=== PATIENT | female | born 1995 | race Caucasian/White ===

== ENCOUNTER 2019-02-12 11:49 | Outpatient (CLI) | payer OTHER, SELFPAY ==
--- NOTE | 2019-02-12 11:00 | DI.US_ITS ---
SYMPTOMS/DIAGNOSIS: 4-5 MM FIRM BUT MOVEABLE LUMP 9:00 O'CLOCK RT BREAST, N63.0, NONPAINFUL RIGHT BREAST ULTRASOUND: A well circumscribed 3.2 x 3.0 x 3.6 mm calcification is identified just below the dermis at 9:00 o'clock just lateral to the nipple. No mass is apparent. There is nothing to suggest a malignancy. Follow up surveillance of this patient with risk adjusted and age adjusted mammography is recommended.
== END 2019-02-12 12:09 ==
DX: N63.12 Unspecified lump in the right breast, upper inner quadrant (principal)
CPT/HCPCS: 76642

== ENCOUNTER 2021-01-05 12:10 | Outpatient (REF) | payer BC, SELFPAY ==
--- NOTE | 2021-01-05 13:30 | PAPFT_PTH ---
PATIENT: Nayeli Sam LOC: [facility] U#:[id number] AGE/SX: 25/F ROOM: RE01/05/[address]: Luiza Cole APRN : 1995 BED: DIS: 01/05/2021 SPEC #: [id number] RECD: 01/06/21 12:53 STATUS: CYNDEE REYasmin #: [id number] JACOB: 01/05/21 13:[address]: Luiza Cole DEPT: [facility] Cytology RECD BY: Priya Mayo Tissues: 1 - CX/ENDOCX FOR PAP SMEARS Procedures: PAP THIN PREP/UVM Screening Comments: [id number]
== END 2021-01-05 12:11 | disposition home or self-care (01) ==
LOC: LBN 12:10
DX: Z12.4 Encounter for screening for malignant neoplasm of cervix (principal)
CPT/HCPCS: 88142

== ENCOUNTER 2021-01-12 02:58 | Outpatient (CLI) | payer BC, SELFPAY ==
[2021-01-12 12:43] LABS: ALT 19 U/L (14-59); AST 20 U/L (15-37); Albumin 4.1 g/dL (3.4-5.0); Alkaline Phosphatase 46 U/L (46-116); BUN 17 mg/dL (7-18); Bilirubin, Total 0.4 mg/dL (0.2-1.0); CREATININE 0.8 mg/dL (0.55-1.02); Calcium 9.3 mg/dL (8.5-10.1); Calculated LDL 95 mg/dL (<100); Chloride 105 mmol/L (98-107); Cholesterol 202 mg/dL (<200); Glucose 84 mg/dL (74-106); HDL Cholesterol 91 mg/dL (40-60); Potassium 4.7 mmol/L (3.5-5.1); Sodium 142 mmol/L (136-145); Total Protein 7.4 g/dL (6.4-8.2); Triglyceride 82 mg/dL (<150)
== END 2021-01-12 02:59 | disposition home or self-care (01) ==
DX: Z00.00 Encounter for general adult medical examination without abnormal findings (principal); Z13.220 Encounter for screening for lipoid disorders
CPT/HCPCS: 36415; 80053; 80061

== ENCOUNTER 2022-01-22 01:10 | Outpatient (CLI) | payer MEDICAID, SELFPAY ==
[2022-01-22 10:49] LABS: Kit/Specimen SENT
[2022-01-22 11:05] LABS: *AMPHETAMINES SCREEN URINE Negative (Negative); *BARBITURATES SCREEN URINE Negative (Negative); *BENZODIAZEPINES SCREEN URINE Negative (Negative); Cannabinoids THC Negative (Negative); Cocaine Screen,Urine Negative (Negative); METHADONE URINE SCREEN Negative (Negative); OPIATES URINE SCREEN Negative (Negative)
[2022-01-22 11:06] LABS: Tricyclic Antidepressants Negative (Negative)
[2022-01-22 11:11] LABS: Abs Immature Grans 0.03 10^3/uL (0.0-0.06); Absolute Basophil Count 0.02 10^3/uL (0.0-0.2); Absolute Eosinophil Count 0.06 10^3/uL (0.0-0.7); Absolute Lymphocyte Count 1.51 10^3/uL (1.2-3.4); Absolute Monocyte Count 0.59 10^3/uL (0.1-0.8); Absolute Neutrophil Count 5.56 10^3/uL (1.2-6.7); Basophils % 0.3; Eosinophils % 0.8; HCT 36.2 % (36.0-46.0); HGB 12.3 g/dL (11.2-15.7); Immature Grans % 0.4; Lymphocytes % 19.4; MCH 31.4 pg (27.0-33.0); MCV 92 fL (80-95); Monocytes % 7.6; Neutrophils % 71.5; RBC 3.92 10^6/uL (3.93-5.22); RDW 12.5 % (11.7-14.6); RDW-SD 42.7 fL; WBC 7.77 10^3/uL (4.4-10.8)
[2022-01-23 09:23] LABS: HIV-1/2 Ag & Ab Screen Negative (Negative)
[2022-01-24 15:23] LABS: Syphilis IgG w/Reflex Nonreactive (Nonreactive)
[2022-01-25 10:13] LABS: Rubella IgG Ab (UVM) Positive (See Note); Varicella IgG Antibody Positive (See Note)
[2022-01-25 10:14] LABS: Hepatitis B Surface Ag Negative (Negative)
[2022-01-25 10:52] LABS: Hepatitis C Ab w Rflx HCV PCR Negative (Negative)
[2022-02-10 20:27] LABS: Specimen WB Whole Blood
== END 2022-01-22 01:11 | disposition home or self-care (01) ==
LOC: LBO 01:10
PROVIDERS: Visit Provider Advanced Practice Midwife
DX: O99.611 Diseases of the digestive system complicating pregnancy, first trimester (principal); K58.1 Irritable bowel syndrome with constipation; O99.341 Other mental disorders complicating pregnancy, first trimester; F90.2 Attention-deficit hyperactivity disorder, combined type; F32.89 Other specified depressive episodes; Z86.16 Personal history of COVID-19; Z36.89 Encounter for other specified antenatal screening; Z3A.12 12 weeks gestation of pregnancy
CPT/HCPCS: 80307; 86787; 86803; 86850; 86900; 86901; 87340; 87389; 81220; 84443; 85025; 86762; 86780; 87086

== ENCOUNTER 2022-02-24 18:32 | Outpatient (REF) | payer MEDICAID, SELFPAY ==
[2022-02-26 15:14] LABS: GC Result Negative (Negative)
[2022-02-26 17:57] LABS: Chlamydia Result Positive (Negative)
== END 2022-02-24 18:33 | disposition home or self-care (01) ==
LOC: LBN 18:32
PROVIDERS: Visit Provider Advanced Practice Midwife
DX: Z34.92 Encounter for supervision of normal pregnancy, unspecified, second trimester (principal)
CPT/HCPCS: 87491; 87591

== ENCOUNTER 2022-03-24 23:52 | Outpatient (REF) | payer MEDICAID, SELFPAY ==
[2022-03-26 16:04] LABS: Chlamydia Result Negative (Negative); GC Result Negative (Negative)
== END 2022-03-24 23:53 | disposition home or self-care (01) ==
LOC: LBN 23:52
PROVIDERS: Visit Provider Advanced Practice Midwife
DX: O98.812 Other maternal infectious and parasitic diseases complicating pregnancy, second trimester (principal); A74.9 Chlamydial infection, unspecified; Z3A.20 20 weeks gestation of pregnancy
CPT/HCPCS: 87491; 87591

== ENCOUNTER 2022-05-12 03:06 | Outpatient (CLI) | payer MEDICAID, SELFPAY ==
[2022-05-12 10:53] LABS: HCT 35.3 % (36.0-46.0); HGB 11.8 g/dL (11.2-15.7); MCH 31.6 pg (27.0-33.0); MCHC 33.4 % (32.0-36.0); MCV 95 fL (80-95); RBC 3.73 10^6/uL (3.93-5.22); RDW 13.2 % (11.7-14.6); RDW-SD 45.3 fL
[2022-05-12 11:00] LABS: Glucose,1 Hr (Glucola) 98 mg/dL (80-140)
== END 2022-05-12 03:07 | disposition home or self-care (01) ==
LOC: LBO 03:06
PROVIDERS: PCP Nurse Practitioner Family; Visit Provider Advanced Practice Midwife
DX: Z34.93 Encounter for supervision of normal pregnancy, unspecified, third trimester (principal)
CPT/HCPCS: 36415; 82950; 85027

== ENCOUNTER 2022-06-16 01:24 | Outpatient (CLI) | payer MEDICAID, SELFPAY ==
--- NOTE | 2022-06-16 06:45 | DI.US_ITS ---
Exam(s) US OB MICHAEL WEIGHT EXAM: US OB MICHAEL WEIGHT CLINICAL HISTORY: covid in first trimester, marginal cord insertion,U07.1,O43.199. TECHNIQUE: Transabdominal obstetrical ultrasound was performed. COMPARISON: US US breast RT limited from 02/12/2019 FINDINGS: There is a single viable intrauterine gestation with cardiac activity identified-125 bpm The fetus is presently in cephalic position . Amniotic fluid: There is a low normal amount of amniotic fluid with an MICHAEL of 9.04cm. Placental location: The placenta is fundal left, grade 1,with no evidence of placenta previa. Dating parameters place this at approximately 32 weeks and 4 days gestational age, implying VENECIA of August 07, 2022. BPD measures 32 weeks and 3 days HC measures 32 weeks and 6 days AC measures 32 weeks and 5 days FL measures 32 weeks and 2 days Estimated weight is 1999 gm-4 pound 7 ounces Fetus is at the 31st percentile on the Hadlock scale. IMPRESSION:: Viable 3rd trimester gestation, as described above. DATA REPOSITORY:
== END 2022-06-16 01:44 ==
LOC: DI 01:24
PROVIDERS: PCP Nurse Practitioner Family; Visit Provider Advanced Practice Midwife
DX: O43.193 Other malformation of placenta, third trimester (principal); Z86.16 Personal history of COVID-19
CPT/HCPCS: 76816

== ENCOUNTER 2022-07-09 12:49 | Outpatient (REF) | payer MEDICAID, SELFPAY ==
[2022-07-09 15:30] LABS: Tricyclic Antidepressants Negative (Negative)
[2022-07-09 15:31] LABS: *AMPHETAMINES SCREEN URINE Negative (Negative); *BARBITURATES SCREEN URINE Negative (Negative); *BENZODIAZEPINES SCREEN URINE Negative (Negative); Cannabinoids THC Negative (Negative); Cocaine Screen,Urine Negative (Negative); METHADONE URINE SCREEN Negative (Negative); OPIATES URINE SCREEN Negative (Negative)
== END 2022-07-09 12:50 | disposition home or self-care (01) ==
LOC: LBN 12:49
PROVIDERS: PCP Nurse Practitioner Family; Visit Provider Advanced Practice Midwife
DX: Z34.93 Encounter for supervision of normal pregnancy, unspecified, third trimester (principal); Z36.85 Encounter for antenatal screening for Streptococcus B; Z3A.36 36 weeks gestation of pregnancy
CPT/HCPCS: 80307; 87081

== ENCOUNTER 2022-08-12 13:30 | Outpatient (CLI) | payer MEDICAID, SELFPAY ==
[2022-08-12 16:12] VITALS: BP 125/78; PULSE 80; TEMP 36.6
--- NOTE | 2022-08-12 17:39 | W.OBNST ---
Date of service: 08/12/22 Time of Service: 17:39 NST Evaluation Reason for NST Reasons for Nonstress Test: POSTDATES Gestational Age Gestational Age in Weeks and Days: 38 Weeks and 1Days Test and Monitor Explained Test/Monitor Explained: Test Explained, Monitor Explained and Patient Verbalized Understanding Vital Signs Blood Pressure: 125/78 Pulse: 80 Temperature: 97.9 F Urine Results Urine Protein: Negative Urine Ketones: Negative Urine Glucose: Negative Urine Blood: Negative NST Information Date on Monitor: 08/12/22 Time on Monitor: 13:46 Date off Monitor: 08/12/22 Time off Monitor: 15:20 Total Time on Monitor: 94 NST Interventions: PO Hydration Contraction Frequency: occasional NST Evaluation Patient States Movement: Present FHR Baseline: 120 Variability: Moderate 6-25 bpm Accelerations: 15x15 Decelerations: None NST Results: Reactive Note MICHAEL Indication: Other (postdates) Largest Vertical Pocket: 4 Total MICHAEL: 10.1 Other Pertinent Findings: Presentation (cephalic presentation) Coding for MICHAEL w/NST: Completed Exam NST Note Note: Pt declines IOL for postdates, will return 08/16 for repeat NST NST Reviewed and Verified by: Marbella Musa
[2022-08-12 17:40] VITALS: BP 125/78; PULSE 80; TEMP 36.6
== END 2022-08-12 15:25 | disposition home or self-care (01) ==
LOC: BCD 13:31 → OBS 13:54
PROVIDERS: PCP Nurse Practitioner Family; Visit Provider Advanced Practice Midwife
DX: O48.0 Post-term pregnancy (principal)
CPT/HCPCS: 59025

== ENCOUNTER 2022-08-16 07:17 | Outpatient (CLI) | payer MEDICAID, SELFPAY ==
[2022-08-16 10:15] VITALS: BP 109/66; PULSE 74
[2022-08-16 10:37] VITALS: BP 109/66; PULSE 74; TEMP 36.8
--- NOTE | 2022-08-16 12:42 | W.OBNST ---
Date of service: 08/16/22 Time of Service: 12:43 NST Evaluation Reason for NST Reasons for Nonstress Test: POSTDATES Gestational Age Gestational Age in Weeks and Days: 41 Weeks and 4Days Test and Monitor Explained Test/Monitor Explained: Test Explained, Monitor Explained and Patient Verbalized Understanding Vital Signs Blood Pressure: 109/66 Pulse: 74 Temperature: 98.2 F NST Information Date on Monitor: 08/16/22 Time on Monitor: 09:35 Date off Monitor: 08/16/22 NST Interventions: PO Hydration NST Evaluation Patient States Movement: Present FHR Baseline: 125 Variability: Moderate 6-25 bpm Accelerations: 15x15 Decelerations: None NST Results: Reactive Note N/A NST Note Note: Pt scheduled for IOL for postdates tomorrow morning NST Reviewed and Verified by: Marbella Musa
[2022-08-16 12:43] VITALS: BP 109/66; PULSE 74; TEMP 36.8
== END 2022-08-16 11:23 | disposition home or self-care (01) ==
LOC: BCD 07:18 → OBS 09:31 → BCD 09:37 → OBS 09:38
PROVIDERS: PCP Nurse Practitioner Family; Visit Provider Advanced Practice Midwife
DX: O48.0 Post-term pregnancy (principal); Z3A.41 41 weeks gestation of pregnancy
CPT/HCPCS: 59025

== ENCOUNTER 2022-08-17 07:21 | Inpatient (IN) | payer MEDICAID, SELFPAY ==
[2022-08-17] VITALS (75 sets, daily range): BP systolic 90–128; BP diastolic 50–83; PULSE 0–119; RESP 18; TEMP 36.5–36.8; O2SAT 77–100; BMI 31.2
[2022-08-17] MEDS: miSOPROStol 25 MCG TAB 50 MCG PO (09:08)
[2022-08-17 09:14] LABS: Source Nasal/Nares
[2022-08-17 09:49] LABS: COVID-19 PCR Negative (Negative)
[2022-08-17 11:05] LABS: HCT 37.5 % (36.0-46.0); HGB 13.2 g/dL (11.2-15.7); MCHC 35.2 % (32.0-36.0); MCV 91 fL (80-95); RBC 4.13 10^6/uL (3.93-5.22); RDW 13.9 % (11.7-14.6); RDW-SD 46.5 fL
--- NOTE | 2022-08-17 12:59 | W.PM.OBHPL1 ---
Date of service: 08/17/22 Time of Service: 09:00 Assessment and Plan Assessment and plan (1) Post-dates : Status: Acute Assessment and plan: A: 27 yo G1 @ 41+5 wks; engel score is 5 IOL for postdates via cervical ripening GBS negative, low risk for SD, increased risk for PPH Category 1 tracing AGA growth, monitored d/t marginal cord insertion & COVID in 1st trimester P: Admit to BC, CBC, T&S, COVID Swab R&B of IOL and various techniques discussed with pt Begin misoprostel cervical ripening procedure Anticipate , Dr. Guzman consulting today OB-HPI Labor/Delivery History of Present Illness Reason for Visit: Term Labor Chief Complaint: Scheduled Induction of Labor Indication for Induction: Post Date. VENECIA Calculator Estimated Delivery Date Method Current WG Current Estimate 08/05/22 LMP (Certain) 41w 5d Other Estimates 08/05/22 Ultrasound #1 41w 5d History of Present Expected Delivery Route/Plan - CNM FOB/bylesley [facility] Abdelrahman and probably sister, Jose D Hopes to avoid epidural, wants to try nitrous, tub, shower GBS negative Specific Issues/Plan 1. ADHD - discontinued medication prior to 2. Slow transit constipation & IBS: colace, miralax and fiber pills, was followed @ [facility] 3. History of depression & ETOH abuse, declines meds but accepts ref to [facility] 4. COVID+ at 10 wks, mild illness & recovered (unvaccinated) 4a. To start low dose ASA @ 12 wks & have 32 wk interval growth scan 06/16/22 5. Desires cfDNA & CF screening; low risk, female 5a. 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 Nayeli declines testing of FOB or referral to tele genetics to further review 6. FOB hx of cleft lip, his brother cleft lip/palate. Accepts level 2 scan, genetics & MFM consult 6a. Morpholgy US @ [facility] nml w/marginal cord insertion, growth US sched'ed 32 wks 6a. 32 week US - MICHAEL 9, EFW 31%ile 7. Grief reaction loss of mother when she was 18; will consider item to bring to in [facility] 8. Calcification nodule under right areola/nipple; review options for f/up 9. CT+ on urine screen, azithromycin 1 gm PO Rx'ed for pt & partner 02/27/22. INOCENCIO 03/24-neg 10. Right sciatica 05/20/22, PT referral sent- symptoms resolved. 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 ADHD (attention deficit hyperactivity disorder) (Acute 11/28/14) Medication Agreement signed 12/26/18 - stimulant medication Constipation (Acute 02/01/13) followed by [facility] Medical History (Updated 08/17/22 @ 13:28 by Marbella Musa) Alcohol intake above recommended sensible limits Annual physical exam Chronic constipation followed by [facility] Depression (02/05/14) Exercise-induced asthma (10/29/13) Family history of cleft lip and palate pt's boyfriend (FOB) and his brother Gastroesophageal reflux disease without esophagitis (12/18/15) Injury of finger of left hand Sciatica, right side Screening cholesterol level Slow transit constipation Variable compliance with medication therapy Family History Father Asthma Mother , 38 Alcohol abuse Depression Maternal Grandfather No problems noted. Paternal Grandfather No problems noted. Maternal Grandmother Diabetes Stroke Thyroid disorder Ovarian cancer Paternal Grandmother No problems noted. Maternal Uncle Colitis Thyroid disorder Sister No problems noted. Brother No problems noted. Brother No problems noted. Social History (Updated 04/21/22 @ 09:40 by Phylicia Contreras CNM) Smoking/Tobacco Use Status: Former Tobacco Use tobacco type: cigarettes and e-cigarettes Quit Date: 05/30/16 Tobacco: How many years used: 2 Quit status: not considering quitting Second Hand Exposure: Yes Smoking risk assessment performed?: Yes Alcohol Intake: current Alcohol Intake frequency: a few times a week Alcohol type: wine Drug use: Never Substance use type: does not use Counseling provided: none Caregiver/Support person: No Household members: friend(s) Housing: house Communication Needs: Corrective Lenses Do you need help understanding health information?: Never Pets and animals: Yes Pets and animals: dog(s) Sexually active: Yes Do you think of yourself as: straight/heterosexual Current gender identity: female What is your relationship status?: never How often do you talk on the phone with friends or family?: once per week Do you belong to any clubs or organized social groups?: no Panel score (0-1 are the most socially isolated patients): 0 What type of physical activity do you participate in: walking Duration: > 90 minutes/day Frequency: 3-4 times per week Chantal/Taoist: None Special chantal needs: No Seatbelt use: always Helmet use: Yes Helmet use: always Drive intox or ride w/intox party bus driver: No Do you feel safe at home: Yes Do you feel safe in your relationship?: Yes History History 2 Para 0 Hx # Term Pregnancies 0 Multiple births 0 Hx # Pregnancies 0 Ectopic pregnancies 0 AB induced 1 Hx Number of Living Children 0 AB spontaneous 0 Past Pregnancies Del. Date GA/Weeks # Preg Succ Route Wgt Sex Labor Lgth Anesthesia Location Prov Complic 02/27/21 10 No Delivery Date: 02/27/21 Last Updated by: Marbella Musa Elective Ab Meds Allergies and Home Medications Allergies Allergy/AdvReac Type Severity Reaction Status Date / Time hydrocodone [From Vicodin] AdvReac Verified 08/12/22 13:12 Home Medications Medication Instructions Recorded Confirmed Type prenat.vits,renata,asu-gahp-ftgmi 1 tab PO DAILY #90 tabs 12/09/21 08/17/22 Rx aspirin 81 mg tablet,delayed 81 mg PO DAILY #90 tabs 01/22/22 08/17/22 Rx release calcium polycarbophil 625 mg 1,250 mg PO DAILY #30 tabs 04/15/22 08/17/22 Rx tablet (FiberCon) docusate sodium 100 mg capsule 100 mg PO BID #60 caps 04/15/22 08/17/22 Rx (Colace) magnesium 250 mg tablet 250 mg PO DAILY 04/21/22 08/17/22 History ferrous sulfate 325 mg (65 mg 325 mg PO DAILY #60 tabs 07/09/22 08/17/22 Rx iron) tablet,delayed release polyethylene glycol 3350 17 17 g PO DAILY PRN constipation 07/13/22 08/17/22 Rx gram/dose oral powder (Miralax) #510 grams Exam Physical Exam Vital signs: Temp Pulse Resp BP 98.2 F 74 18 121/76 08/17/22 10:57 08/17/22 12:51 08/17/22 10:57 08/17/22 12:51 Vital Signs Reviewed: Yes Constitutional Constitutional: no acute distress, average body habitus and cooperative Detailed Labor and Delivery Exam Dilation: 1 (previous exam done yesterday) Effacement (%): 60 station: -2 Cervix position: posterior Consistency: medium ENGEL Score(Cervical Ripeness Score): 5 Amniotic Membrane Status: Intact Fetus A Heart Rate Baseline: 135 Monitor Accelerations: 15 X 15 Monitor Decelerations: None Variability: Moderate (6-25 BPM) Categories: Category I Est. Weight: 8 lb 4.277 oz Est. Weight: 3750 gms HEENT Exam HEENT Exam: Normal Neck Exam Neck Exam: Normal Chest/Brest/Axilla Exam Chest Exam: Normal Breast Exam Breast Exam: Not Done Respiratory Exam Respiratory Exam: Normal Cardiovascular Exam Cardiovascular Exam: Normal Abdominal Exam Abdominal Exam: Normal (gravid, nontender) Rectal Exam Rectal Exam: Normal Exam Exam: Normal Extremities Exam Extremities Exam: Normal Back/Spine/Pelvis Exam Back Exam: Normal Pelvis Adequate: Yes Skin Exam Skin Exam: Normal Neurological Exam Neurological Exam: Normal Psychiatric Exam Psychiatric Exam: Normal Results Results Group Beta Strep: Negative Blood Type: A+ Rubella Status: Immune Varicella Immunity: Immune Risk Assessment Risk for Shoulder Dystocia Historical/Initial OB: NEGATIVE FOR: Pelvic Abnormality, Pre- BMI>30, Previous Shoulder Dystocia or Previous Macrosomia 40 Weeks: NEGATIVE FOR: EFW> 4500 gms, Maternal Weight Gain >40lb or Post Dates Increased Risk?: No Delivery Plan @ 36wks: spont labor, Delivery Plan @ 40 wks: IOL between 41-42 wks Risk for Pre-Eclampsia Date Initiated/Initials: d/t COVID @ 10 wks will start low dose ASA @ 12 wks Yes, if one or more: NEGATIVE FOR: Hx Pre-E/Gest HTN, Chronic HTN, Multiple Gestation, Pre-gestational DM, Renal Disease, Systemic Lupus or APA Syndrome Yes, if 2 or more: POSITIVE FOR: Nulliparity; NEGATIVE FOR: Age>= 35 yrs, >10yr btwn pregnancies, BMI>30, ethinicty, Mother/Sister w/ Pre-E or Previous IUGR Risk for Post- Hemorrhage Initial: NEGATIVE FOR: Multiple Gestation, Previous PPH, Known Clotting Deficiency, Grand Multiparity or Anticoagulation At Risk?: Yes (due to induction process) Counseled re: Active Management: Yes Risks Reviewed Risks Reviewed Upon Admission: Yes
--- NOTE | 2022-08-17 15:27 | W.PM.OBNL1 ---
Date of service: 08/17/22 Time of Service: 15:27 Informed Consent Informed Consent: Induction of Labor (via cervical ripening) and Risk,Benefits,Alternatives Discussed Pelvic Exam Dilation: 2.5 Effacement (%): 90 station: -2 Position: LOP Cervix Position: mid Consistency: medium Contractions Monitor Mode: External Contraction Frequency(min): irregular q 2-4 Contraction Duration(sec): 20-50 Intensity: Mild Fetus A Monitor: External (US) Heart Rate Baseline: 135 Variability: Moderate (6-25 BPM) Categories: Category I Accelerations: 15 X 15 Decelerations: None Amniotic Membrane Status: Intact Assessment and Plan Assessment and plan (1) Post-dates : Status: Acute Assessment and plan: A: IOL, postdates, prodromal phase Nguyen score advanced to 7 Category 1 tracing P: 2nd dose miso now, 25 mcg PO Consider AROM when dilation progresses Anticipate Objective Abnormal lab results 08/17/22 Range/Units 10:30 WBC 11.20 H (4.4-10.8) 10^3/uL Temp Pulse Resp BP 98.1 F 69 18 123/74 08/17/22 15:26 08/17/22 15:26 08/17/22 15:26 08/17/22 15:26 Laboratory Results WBC 11.20 10^3/uL (4.4-10.8) H 08/17/22 10:30 RBC 4.13 10^6/uL (3.93-5.22) 08/17/22 10:30 Hgb 13.2 g/dL (11.2-15.7) 08/17/22 10:30 Hct 37.5 % (36.0-46.0) 08/17/22 10:30 MCV 91 fL (80-95) 08/17/22 10:30 MCH 32.0 pg (27.0-33.0) 08/17/22 10:30 MCHC 35.2 % (32.0-36.0) 08/17/22 10:30 RDW 13.9 % (11.7-14.6) 08/17/22 10:30 Plt Count 10^3/uL (130-400) 08/17/22 10:30 MPV fL (8.0-11.0) 03/21/23 10:30 COVID-19 Source Nasal/Nares 08/17/22 08:52 Patient ABO/Rh A Positive 08/17/22 09:35 Antibody Screen NEGATIVE 08/17/22 09:35 Vital Signs Reviewed: Yes Subjective Interval history since last seen: Low back ache with contractions began around 1400, otherwise does not feel contraction discomfort abdominally. Contraction frequency and uterine irritability noted on toco, 2nd dose of miso has been held since 1300. Tolerating PO intake well, has been voiding qs and nml BM this morning. Results Hemoglobin/Hematocrit: Hgb 13.2 g/dL (11.2-15.7) 08/17/22 10:30 Hct 37.5 % (36.0-46.0) 08/17/22 10:30 Abnormal Lab Findings: Abnormal Labs 08/17/22 10:30 WBC 11.20 H
[2022-08-17] MEDS: miSOPROStol 50 MCG TAB 25 MCG PO (15:45)
[2022-08-17] MEDS: Acetaminophen 500 MG TAB 1000 MG PO (15:45)
[2022-08-17] MEDS: Ondansetron O.D.T. 4 MG TABEF 8 MG PO (18:50)
--- NOTE | 2022-08-17 20:27 | PGE_ITS ---
Date of service: 08/17/22 Time of Service: 20:27 Informed Consent Informed Consent: Regional Anesthesia and Risk,Benefits,Alternatives Discussed Pelvic Exam Dilation: 3 Effacement (%): 90 station: -3 Position: LOP Cervix Position: mid Consistency: medium Contractions Monitor Mode: External Contraction Frequency(min): q2-4 Intensity: Mild/Moderate Fetus A Monitor: External (US) Heart Rate Baseline: 125 Variability: Moderate (6-25 BPM) Categories: Category I Accelerations: 15 X 15 Decelerations: None Amniotic Membrane Status: Intact Assessment and Plan Assessment and plan (1) Post-dates : Status: Acute Assessment and plan: A: IOL via cervical ripening for postdates prodromal labor, now 3/90%, vtx LOP -3 need for pain management P: ERGONOMICS TECHNICIAN paged, start IV fluids Consider AROM when pt more comfortable Objective Objective Narrative Objective Narrative: Pt has ambulated, showered, rested in bed. She reports gradually increasing back pain since 1300 Contraction discomfort in her back really increased after 2nd dose of miso @ 1530 Vital signs are stable, tracing has been category 1 consistently Pt gave nitrous a try but has decided she would likeregional anesthesia Subjective Interval history since last seen: Contractions are stronger, pt reports nausea during the contrx and Zofran helped a little, back pain is still the primary discomfort. Nitrous is bedside, pt is requesting regional anesthesia now.
--- NOTE | 2022-08-17 20:43 | ANES.PREOP_ITS ---
General Info Date of Service Date Performed: 08/17/22 Height: 5 ft 5 in Weight: 85.275 kg Body Mass Index (BMI): 31.2 Meds Allergies and Home Medications Allergies Allergy/AdvReac Type Severity Reaction Status Date / Time hydrocodone [From Vicodin] AdvReac Verified 08/12/22 13:12 Home Medication Medication Instructions Recorded prenat.vits,renata,rac-hvun-esgjf 1 tab PO DAILY #90 tabs 12/09/21 aspirin 81 mg tablet,delayed 81 mg PO DAILY #90 tabs 01/22/22 release calcium polycarbophil 625 mg 1,250 mg PO DAILY #30 tabs 04/15/22 tablet (FiberCon) docusate sodium 100 mg capsule 100 mg PO BID #60 caps 04/15/22 (Colace) magnesium 250 mg tablet 250 mg PO DAILY 04/21/22 ferrous sulfate 325 mg (65 mg 325 mg PO DAILY #60 tabs 07/09/22 iron) tablet,delayed release polyethylene glycol 3350 17 17 g PO DAILY PRN constipation 07/13/22 gram/dose oral powder (Miralax) #510 grams Current Visit Medications: Current Medications Generic Name Dose Route Start Last Admin Trade Name Freq PRN Reason Stop Dose Admin Fentanyl/Ropivacaine 200 ml 08/17/22 20:30 Fentanyl/Ropivacaine 2 Mcg/Ml And 0.1% 200 Ml Cadd Cassette EP DIRECTED PAULINA Sodium Chloride 500 mls @ 0 mls/hr 08/17/22 20:26 Saline 500ml Bag IV PRN PRN As Directed Ringer's Solution 500 mls @ 500 mls/hr 08/17/22 20:27 IV 08/17/22 21:26 BOLUS ONE IV Miscellaneous Supplies 1 each 08/17/22 20:30 Iv Access IV DIRECTED PAULINA Sodium Chloride 0 ml 08/17/22 20:26 Normal Saline Flush 10 Ml Syr IVP PRN PRN Terbutaline Sulfate 0.25 mg 08/17/22 08:37 Terbutaline 1 Mg/Ml Vial SC PRN PRN PFSH Active Problems Active Problems: Problem Status Onset Code Post-dates O48.0 COVID-19 affecting in first trimester O98.511, U07.1 Marginal insertion of umbilical cord affecting management of mother O43.199 Chlamydia infection affecting in second trimester O98.812, A74.9 IBS (irritable bowel syndrome) K58.9 Z34.90 Breast anomaly Q83.9 ADHD (attention deficit hyperactivity disorder) 11/28/14 F90.9 Constipation 02/01/13 K59.00 Medical History Medical History (Updated 08/17/22 @ 13:28 by Marbella Musa) Alcohol intake above recommended sensible limits Annual physical exam Chronic constipation followed by [facility] Depression (02/05/14) Exercise-induced asthma (10/29/13) Family history of cleft lip and palate pt's boyfriend (FOB) and his brother Gastroesophageal reflux disease without esophagitis (12/18/15) Injury of finger of left hand Sciatica, right side Screening cholesterol level Slow transit constipation Variable compliance with medication therapy Tobacco Smoking/Tobacco Use Status: Former Tobacco Use Passive smoking exposure: Yes Second hand exposure: Yes Alcohol Alcohol Intake: current Alcohol intake frequency: a few times a week Alcohol type: wine Substance Use Substance use: Never Substance use type: does not use Counseling provided: none Prental History History 2 Para 0 Hx # Term Pregnancies 0 Multiple births 0 Hx # Pregnancies 0 Ectopic pregnancies 0 AB induced 1 Hx Number of Living Children 0 AB spontaneous 0 Past Pregnancies Del. Date GA/Weeks # Preg Succ Route Wgt Sex [facility] Delivery Date: 02/27/21 Last Updated by: Marbella Musa Elective Ab Vital Signs and Lab Results Vital Signs Most Recent Vital Signs in EMR: Most Recent Vital Signs Temp Pulse Resp BP 36.6 C 78 18 119/72 08/17/22 20:16 08/17/22 20:16 08/17/22 20:16 08/17/22 20:16 Lab Results 08/17/22 10:30 Blood Type / Crossmatch: Patient ABO/Rh A Positive 08/17/22 Antibody Screen NEGATIVE 08/17/22 Complete Blood Count: White Blood Count 11.20 10^3/uL (4.4-10.8) H 08/17/22 10:30 Red Blood Count 4.13 10^6/uL (3.93-5.22) 08/17/22 10:30 Hemoglobin 13.2 g/dL (11.2-15.7) 08/17/22 10:30 Hematocrit 37.5 % (36.0-46.0) 08/17/22 10:30 Platelet Count 10^3/uL (130-400) 08/17/22 10:30 Complete Metabolic Panel: No Data to Display Liver Function Panel: No Data to Display Coagulation Panel: No Data to Display Cardiac Panel: No Data to Display Arterial Blood Gas: No Data to Display Venous Blood Gas: No Data to Display Pancreas Panel: No Data to Display Thyroid Panel: No Data to Display Infectious Disease: Coronavirus (COVID-19)(PCR) Negative (Negative) 08/17/22 08:52 Coronavirus 2019 Source Nasal/Nares 08/17/22 08:52 Blood Cultures: No Data to Display Toxicology Panel: No Data to Display Panel: No Data to Display Anesthesia Assessment and Plan Anesthesia History Personal History: No History of Anesthesia Complications and No History of General Anesthesia Family History: No Family History of Anesthesia Complications Exercise Tolerance Exercise Tolerance: Metabolic Equivalents>4 Pertinent Negatives Pertinent Negatives: No Symptoms of GERD and No Major Cardiovascular Symptoms or Complaints Cardiac & Pulmonary Exam Cardiac Exam: Normal S1/S2 Heart Sounds Pulmonary Exam: Clear Bilateral Breath Sounds Implantable Cardiac Device Does patient have a Pacemaker or an ICD?: No Airway Exam Known Difficult Airway: No Mallampati Class: 1 Mouth Opening: Normal (> 3cm) Thyromental Distance: Greater than 3 cm Neck Range of Motion: Full ROM Neck Circumference: Normal Teeth Condition: Normal Dentition ASA Classification ASA Score: ASA 2 Emergency Case?: No NPO Status NPO Status: Full Stomach Status Status: Confirmed Anesthesia Plan Resuscitation Status: Full Code Anesthesia Technique: Epidural Anesthesia Airway Planned: Natural Airway Monitors Used: Standard Monitors
[2022-08-17] MEDS: Lactated Ringers 500 ML IV (21:00)
[2022-08-17] MEDS: FentaNYL/ROPIvacaine 2 mcg/ml and 0.1% 200 ML CADD Cassette EP (21:19)
--- NOTE | 2022-08-17 21:37 | ANES.NEUR_ITS ---
Epidural/Spinal Catheter Date Performed: 08/17/22 Procedure Start: 21:20 Procedure Stop: 21:38 Requesting Provider: Marbella Musa Procedure Location: Obstetrics Reason Performed: Labor Epidural Standard Monitors Applied: Blood Pressure, SpO2 and See EMR for corresponding vital signs Patient Position: Sitting Sedation Given (Indicate Dose Given): No Sedation given Patient Mental Status: Awake Sterility: Hand Hygiene, Surgical Cap, Surgical Mask, Sterile Gloves, Sterile Drape/Sheet and Chlorhexidine Procedure Location: L3-L4 Interspace Epidural Needle: Tuohy 18 Gauge Needle Length: 3.5 Inch Needle Approach: Midline Epidural Procedure: Skin Prepped, Sterile Drape Placed, 1% Lidocaine to skin and subcutaneous tissue with 25G needle, Tuohy Needle placed, ELIANA to Saline Used, Epidural Catheter Placed, Negative Heme, Negative CSF Flow and Tuohy Needle Removed Catheter Placed?: Catheter Placed Test Dose (Indicate Dose Given): 3ml 1.5% Lidocaine with 1:200K Epinephrine Given and Negative Test Dose Loss of Resistance Depth (cm): 5 Catheter depth at skin (cm): 12 Dressing: [place] Dressing Placed, Mastisol Used and Dressing reinforced with Tape Epidural Provid er Bolus (Indicate Dose Given): Total bolus dose given in 3-5 ml divided doses and Total Ropivacaine 0.1% with Fentanyl 2mcg/ml Given from pump. (ml) Dose:: 10 ml Additives (Indicate Dose Given ): None Infusion Medication: Medication Infusion Began Medication Infusion: Ropivacaine 0.1% with Fentanyl 2mcg/ml Maintenance Infusion Rate (ml/hour): 10 PCEA Bolus Dose (ml): 5 Block Level: N/A Paresthesia: None Ultrasound: Not Used Number of Attempts (See previous attempts in note section): 1 Procedure Tolerated: No Complications and Patient tolerated well Procedure Outcome: Successful Procedure Comment:: test dose at 2125. Pt educated on PCEA. she is more comfortable now after epidural. to,erated straight forward procedure very well. Performed By: Ariel Brody
--- NOTE | 2022-08-17 23:14 | PGE_ITS ---
Date of service: 08/17/22 Time of Service: 23:14 Informed Consent Informed Consent: Risk,Benefits,Alternatives Discussed and Other (AROM discussed and consented to) Pelvic Exam Dilation: 4 Effacement (%): 95 station: -2 Position: LOP Cervix Position: mid Consistency: soft BISHOPS Score(Cervical Ripeness Score): 9 Contractions Monitor Mode: External Contraction Frequency(min): q2-4 Contraction Duration(sec): 60 Intensity: Moderate Fetus A Monitor: External (US) Heart Rate Baseline: 125 Variability: Moderate (6-25 BPM) Categories: Category I Accelerations: 15 X 15 Decelerations: None Amniotic Membrane Status: Ruptured Rupture Method: Artifical Amniotic Fluid: [place] Tinged and Meconium Amount: moderate amt Date of Membrane Rupture: 08/17/22 Time of Membrane Rupture: 23:04 Assessment and Plan Assessment and plan (1) Post-dates : Status: Acute Assessment and plan: A: early labor, epidural, cat 1 tracing P: AROM for light mec, also blood tinged Nguyen score progressed to 9/10, stretchy at 4 cm Encourage pt to rest, reassess for progress prn Consider pitocin augmentation Subjective Interval history since last seen: Epidural is very effective, pt reports feeling comfortable, a little hungry, taking clear liquids well.
[2022-08-18] VITALS (96 sets, daily range): BP systolic 99–126; BP diastolic 50–77; PULSE 40–112; RESP 18; TEMP 36.4–36.8; O2SAT 97–98
[2022-08-18] MEDS: Lactated Ringers 1,000 ML 125 ML IV (02:25)
--- NOTE | 2022-08-18 04:36 | PGE_ITS ---
Date of service: 08/18/22 Time of Service: 04:36 Informed Consent Informed Consent: Risk,Benefits,Alternatives Discussed and Other ([facility] consent given) Pelvic Exam Dilation: 6 Effacement (%): 100 station: -1 Cervix Position: anterior Contractions Monitor Mode: External Contraction Frequency(min): q2-3 Contraction Duration(sec): 60 IUPC resting tone (mmHg): 20 IUPC peak pressure (mmHg): 70 IUPC [place] units: 180 Fetus A Monitor: External (US) Heart Rate Baseline: 130 Variability: Moderate (6-25 BPM) Categories: Category I Accelerations: 15 X 15 Decelerations: None Amniotic Membrane Status: Ruptured Assessment and Plan Assessment and plan (1) Post-dates : Status: Acute Assessment and plan: A: Epidural is effective Active labor with progress to 6 cm IUPC inserted, MVU's indicate adequate labor P: Continue current plan of care Pitocin augmentation if indicated Anticipate Objective Vital Signs Reviewed: Yes Subjective Interval history since last seen: pt has been dozing but unable to sleep well, is generally comfortable while feeling contractions lightly as tightenings and abd pressure. Blood tinged mucous and amniotic fluid draining, reilly in place.
--- NOTE | 2022-08-18 07:23 | NUR.NOTE ---
Nursing Note: MD Dr. Guzman made aware of change in tracing for change in varibility
--- NOTE | 2022-08-18 08:11 | W.PM.OBNL1 ---
Date of service: 08/18/22 Time of Service: 07:30 Pelvic Exam Dilation: 9.5 (anterior lip) Effacement (%): 100 station: +3 Position: ROP Contractions Monitor Mode: External Contraction Frequency(min): q2-3 Fetus A Monitor: External (US) Heart Rate Baseline: 120 Variability: Moderate (6-25 BPM) Categories: Category II Decelerations: Early and Variable Assessment and Plan Assessment and plan (1) Post-dates : Status: Acute Assessment and plan: A: 2nd stage labor, persistent ROP with anterior lip Dr. Guzman inhouse and updated on pt status P: Hand off to JACOB Michelle, bedside report Anticipate Objective Vital Signs Reviewed: Yes Objective Narrative Objective Narrative: Labor pattern adequate per IUPC Cervix dilated to anterior lip and +3 station Bloody show noted, urine in reilly bag blood tinged since 0700 Excellent anesthesia in effect from epidural Variable/early decel with descent, recovered to baseline with lateral position Subjective Interval history since last seen: rectal pressure, feels urge to bear down
[2022-08-18] MEDS: Oxytocin/Normal Saline 30 UNIT/500 ML BAG 95 UNITS IV (09:10)
--- NOTE | 2022-08-18 09:58 | W.OBDELIVERY ---
Date of service: 08/18/22 Time of Service: 09:58 OB Labor/ Delivery Information Baby A Delivery Delivery Method: Spontaneaous Presentation: Vertex Vertex Position: Right Occipital Anterior Cord Description-Baby A: 3 Vessels and Clamped/Cut (after 7 minutes of delayed cord clamping) Amniotic Fluid: Meconium Estimated Blood Loss: 250 Delivery Outcome: Liveborn Infant Complications: none Infant Transferred: Remains with Mother Note: Nayeli presented for induction of labor at 41w5d on 08/16/22. She recieved misoprostol and IV pitocin as cervical ripening and then inducing agents. tolerated labor well and utilized epidural for pain management. Cashier Courtesy Booth assumed care at approximately 0800 on 08/18/22. At that time patient had begun pushing and was effective in bringing baby to +2 station. Tracing had been CAT II but resolved to CAT I with maternal position changes and as baby descended. She delivered a live female over intact perineum at 0909. Baby was placed skin to skin and cord was clamped and then cut by FOB after 7 minutes of delayed cord clamping. Baby 9 at 1 minute and 10 at 5 minutes. Placenta delivered via mann mechanism at 0920. Placenta appears intact. Uterus / fundus firms with massage and IV pitocin that was started after baby was born for active management of third stage.Cord blood testing tubes collected. Weight pending to allow for skin to skin for the montiel hour. Patient plans to breast feed. Expect normal PP course. Baby ana Duarte weighed 3600gm. Providers Nurse Metal Engineering Process Worker: Phylicia Michelle Nurse: Zoila Veronica Labor/Delivery Information Number of Babies in Womb: 1 Steroids Given: None Reason Steroids Not Administered: N/A Group Beta Strep: Negative Antibiotics Administered: No Rubella Status: Immune Blood Type: A+ Varicella Immunity: Immune Shoulder Dystocia: No Stages of Labor Onset of Labor Date: 08/17/22 Onset of Labor Time: 09:00 Complete Dilatation Date: 08/18/22 Complete Dilatation Time: 06:58 Labor - Stage 1 Duration: 21 hours and 58 minutes ROM Baby A: 08/17/22 ROM Baby A: 23:04 ROM Total Time- Baby A: [id number] Infant Delivery Date-Baby A: 08/18/22 Delivery Time-Baby A: 09:09 Labor Stage 2 Duration: 2 hours and 11 minutes Placenta Delivery Date-Baby A: 03/22/23 Placenta Delivery Time-Baby A: 09:20 Labor-Stage 3 Duration: 11 minutes Total Length of Labor-Baby A: 24 hours and 9 minutes Placenta Status: Delivered ROM Date-Baby B: 08/17/22 ROM Time-Baby B: 23:04 Baby A Infant Gender: Female Gestational Status: Term (39-41.6 wks) Gestational Age in Weeks/Days: 41 Weeks and 6 Days Score-1 Minute Interval(Baby A) Heart Rate-1 minute: 100 BPM or Greater Respiratory Effort- 1 minute: Spontaneous/Strong Cry Muscle Tone-1 minute: Active Movement Reflex Response-1 minute: Prompt Response Color-1 minute: Bluish Hands or Feet Total Score-1 minute: 9 Score-5 Minute Interval(Baby A) Heart Rate- 5 minute: 100 BPM or Greater Respiratory Effort-5 minute: Spontaneous/Strong Cry Muscle Tone-5 minute: Active Movement Reflex Response-5 minute: Prompt Response Color-5 minute: [place]/No Cyanosis Total Score- 5 minute: 10
[2022-08-18] MEDS: Ibuprofen 600 MG TAB PO ×2 (10:13→16:32)
[2022-08-18] MEDS: Acetaminophen 325 MG TAB 650 MG PO ×3 (10:13→21:00)
[2022-08-18] MEDS: Hamamelis Leaf/Glycerin 100 EACH BOX PR (10:14)
[2022-08-18] MEDS: Dibucaine 1% 28 GM TUBE TP (10:14)
[2022-08-19 00:17] VITALS: BP 100/59; PULSE 68; TEMP 36.7
[2022-08-19] MEDS: Ibuprofen 600 MG TAB PO ×3 (00:58→15:07)
--- NOTE | 2022-08-19 01:05 | NUR.NOTE ---
Pt reports improvement on leg buckleing post epidueral. She is now able to walk unassited and states that leg is not longer buckleing but does not feel at its baseline yet. Nursing Note:
[2022-08-19] MEDS: Acetaminophen 325 MG TAB 650 MG PO ×2 (02:42→15:08)
[2022-08-19 06:31] VITALS: BP 106/69; PULSE 75; TEMP 36.3
--- NOTE | 2022-08-19 07:23 | PDOC.ANES ---
Date of service: 08/18/22 Time of Service: 20:45 Anesthesia Note Report Anesthesia Note: Contacted by OB nursing staff around 1630 on 08/18/22 with patient report of right leg tingling and occasionally gives out when ambulating. Instructed RN to notify Anesthesia if any worsening of symptoms. I then called to check in at 1820 and TYRELL Cummings reported that the symptoms were mostly unchanged but there was slight improvement but no worsening. I assessed the patient at 2044 and the patient was up in the room independently, she reported that all symptoms were improving. Upon exam, some right leg weakness still persisted with straight leg raises. Plan is to continue to watch and reassess tomorrow by Anesthesia before discharge. Patient aware to report any worsening of symptoms. Note charted 08/19/22 am due to EMR down at time of interaction.
[2022-08-19 07:40] LABS: HCT 34.7 % (36.0-46.0); MCH 31.7 pg (27.0-33.0); MCHC 34.6 % (32.0-36.0); MCV 92 fL (80-95); RBC 3.79 10^6/uL (3.93-5.22); RDW-SD 46.5 fL; WBC 21.88 10^3/uL (4.4-10.8)
--- NOTE | 2022-08-19 07:53 | W.ANESPOSTOP ---
Postoperative Evaluation Date, Time and Location Date Performed: 08/19/22 Time Performed: 07:25 Patient Location: Obstetrics Vital Signs Most Recent Imported Vital Signs: Most Recent Vital Signs Temp Pulse Resp BP Pulse Ox 36.3 C L 75 18 106/69 98 08/19/22 06:31 08/19/22 06:31 08/18/22 19:30 08/19/22 06:31 08/18/22 19:30 Pain Score Most Recent Pain Score: Most Recent Pain Score Pain Level [Abdomen] 3 08/19/22 06:31 Pain Level 5 08/19/22 06:28 Assessment Mental Status: Awake (Alert & Oriented to Patient Baseline) Airway and Respiratory Function: Patent airway with normal (patient baseline) respiratory exam Cardiovascular Function: Hemodynamically Stable Hydration Status: Adequately Hydrated Nausea & Vomiting: No Nausea or Vomiting Pain: Pain is tolerable per patient Peripheral Nerve Block: Patient did not receive a nerve block Postoperative Comments:: Yesterday patient had concerns that right leg was giving out, even hours after epidural was turned off. This was discussed with last nights Call anesthesia provider and as this was staying the same/getting better, conservative watchful management was done. This morning she is able to lift her right leg and states it seems resolved. Denies and paresthesia or discomfort, other than slight back discomfort at the site of insertion. Normal bowel and bladder function per patient. I advised this is likely the medication just taking longer to wear off but could have also been nerve irritation from the epidural. She will go home and call anesthesia back if anything concerning occurs. We discussed the worrisome possibilities, but given resolution and unilateral presentation, I do not believe imaging is indicated to rule out hematoma unless she develops paresthesia or motor weakness. This sounds like residual quad weakness that resolved.
[2022-08-19 09:25] VITALS: BP 114/75; PULSE 77; RESP 16; TEMP 36.3; O2SAT 99
--- NOTE | 2022-08-19 10:02 | DSE_ITS ---
Date of service: 08/19/22 Time of Service: 10:02 DS: Diagnosis Discharge Diagnosis (1) Post-dates : Asessment and Plan: 1. NVD over intact perineum 2. PP course normal except slow return to complete function of right leg following epidural, improving consistently, able to do own ADL's. Anesthesia has reviewed. 3.Reviewed PP warning signs, hemorrhage, PPD, mastitis etc. and when to call provider writer technical publications 4. RTO in 2 and 6 weeks, planning Paragard IUD in 6 weeks. Discharge Plan Disposition Patient Disposition: Home Condition: Good Discharge Details Reason For Visit: Term Labor Admit Date/Time: 08/17/22 07:21 Admit Provider: Marbella Musa Attending Provider: Marbella Musa [facility] Course: Admitted for induction of labor due to post dates. Labor progressed normally and she delivered a live female over intact perineum vaginally. Normal PP course. Plans IUD for PP contraception. Will RTO in 2 and 6 weeks PP. KH Home Meds and New Rx's Prescriptions: Continued prenat.vits,renata,[id number] Tablet 1 tab PO DAILY Qty: 90 5RF magnesium 250 mg tablet 250 mg PO DAILY ferrous sulfate 325 mg (65 mg iron) tablet,delayed release (DR/EC) 325 mg PO DAILY Qty: 60 4RF docusate sodium [Colace] 100 mg capsule 100 mg PO BID Qty: 60 0RF calcium polycarbophil [FiberCon] 625 mg tablet 1,250 mg PO DAILY Qty: 30 0RF polyethylene glycol 3350 [Miralax] 17 gram/dose powder 17 g PO DAILY PRN (Reason: constipation) Qty: 510 4RF Discontinued aspirin 81 mg tablet,delayed release (DR/EC) 81 mg PO DAILY Qty: 90 3RF Rx Instructions: take one tab daily and take two tabs every other day, alternatiing Discharge Instructions Instructions: Mastitis (GEN), Depression (GEN), Intrauterine Device (GEN) Stand Alone Forms: BC Instructions, BC Post Vaginal Deliver Activity:: Activity as Tolerated Equipment/Supplies:: No Equipment Needed Diet:: Normal Diet Discharge Orders Discharge Orders: Discharge Order (Routine); Ordered 08/19/22 Ordered By: Phylicia Michelle OB:DS Summary Summary Vaginal Delivery Method: Spontaneaous Episiotomy Description: None Laceration Extension: N/A Contraception Discussed Contraception Discussed: Yes Contraceptive Plan: IUD, [place] Gender-Baby A: Female weight: 7 lb 14.986 oz Disposition of Baby A: Home Status at Discharge Functional status at discharge: independent ambulation Overall status at discharge: patient is back to baseline Mental Status: mental status grossly normal Speech and Movement: speech and movement normal Mood: congruent mood Affect: normal affect Time Spent with Patient providing and/or coordinating discharge services: Less than 30 minutes Exam Physical Exam Vital signs: Temp Pulse Resp BP Pulse Ox 97.3 F L 75 18 106/69 98 08/19/22 06:31 08/19/22 06:31 08/18/22 19:30 08/19/22 06:31 08/18/22 19:30 Vital Signs Reviewed: Yes Constitutional Constitutional: no acute distress, average body habitus and cooperative HEENT Exam HEENT Exam: Normal Neck Exam Neck Exam: Normal (normal visual inspection) Respiratory Exam Respiratory Exam: Normal Cardiovascular Exam Cardiovascular Exam: Normal Abdominal Exam Abdomen: Other (normal exam) Fundal Exam Fundus: Below Umbilicus and Firm Comment: small lochia noted. 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 ADHD (attention deficit hyperactivity disorder) (Acute 11/28/14) Medication Agreement signed 12/26/18 - stimulant medication Medical History (Updated 08/19/22 @ 10:05 by Phylicia Michelle CNM) Alcohol intake above recommended sensible limits Annual physical exam Chlamydia infection affecting in second trimester Chronic constipation followed by [facility] Constipation (02/01/13) followed by [facility] COVID-19 affecting in first trimester Depression (02/05/14) Exercise-induced asthma (10/29/13) Family history of cleft lip and palate pt's boyfriend (FOB) and his brother Gastroesophageal reflux disease without esophagitis (12/18/15) Injury of finger of left hand Marginal insertion of umbilical cord affecting management of mother Post-dates Sciatica, right side Screening cholesterol level Slow transit constipation Variable compliance with medication therapy Family History Father Asthma Mother , 38 Alcohol abuse Depression Maternal Grandfather No problems noted. Paternal Grandfather No problems noted. Maternal Grandmother Diabetes Stroke Thyroid disorder Ovarian cancer Paternal Grandmother No problems noted. Maternal Uncle Colitis Thyroid disorder Sister No problems noted. Brother No problems noted. Brother No problems noted. Social History (Updated 04/21/22 @ 09:40 by Phylicia Contreras CNM) Smoking/Tobacco Use Status: Former Tobacco Use tobacco type: cigarettes and e- cigarettes Quit Date: 05/30/16 Tobacco: How many years used: 2 Quit status: not considering quitting Second Hand Exposure: Yes Smoking risk assessment performed?: Yes Alcohol Intake: current Alcohol Intake frequency: a few times a week Alcohol type: wine Drug use: Never Substance use type: does not use Counseling provided: none Caregiver/Support person: No Household members: friend(s) Housing: house Communication Needs: Corrective Lenses Do you need help understanding health information?: Never Pets and animals: Yes Pets and animals: dog(s) Sexually active: Yes Do you think of yourself as: straight/heterosexual Current gender identity: female What is your relationship status?: never How often do you talk on the phone with friends or family?: once per week Do you belong to any clubs or organized social groups?: no Panel score (0-1 are the most socially isolated patients): 0 What type of physical activity do you participate in: walking Duration: > 90 minutes/day Frequency: 3-4 times per week Chantal/Religious: None Special chantal needs: No Seatbelt use: always Helmet use: Yes Helmet use: always Drive intox or ride w/intox warehouse associate driver: No Do you feel safe at home: Yes Do you feel safe in your relationship?: Yes History History 2 Para 0 Hx # Term Pregnancies 0 Multiple births 0 Hx # Pregnancies 0 Ectopic pregnancies 0 AB induced 1 Hx Number of Living Children 0 AB spontaneous 0 Past Pregnancies Del. Date GA/Weeks # Preg Succ Route Wgt Sex Labor Lgth Anesth esia Location [facility] 02/27/21 10 No Delivery Date: 02/27/21 Last Updated by: Marbella Musa Elective Ab DS: Data Vitals/I&O Vitals and I&O: Vital Signs Temperature 97.3 F L 08/19/22 06:31 Temperature Source Oral 08/19/22 06:31 Pulse 75 08/19/22 06:31 Pulse Rhythm Regular 08/18/22 19:30 Respiratory Rate 18 08/18/22 19:30 Blood Pressure 106/69 08/19/22 06:31 Blood Pressure Mean 81 08/19/22 06:31 Pulse Oximetry 98 08/18/22 19:30 Pain Level 3 08/19/22 06:31 Comment Pt sleeping after being awake for several hours. 08/19/22 04:00 Intake & Output 08/18/22 08/18/22 08/19/22 11:59 23:59 11:59 Intake Total 1462.5 / 1500.0 37.5 / 1500.0 Output Total 300 / 2600 2300 / 2600 Balance 1162.5 / -1100.0 -2262.5 / -1100.0 Intake: IV 1462.5 / 1500.0 37.5 / 1500.0 Output: Urine 300 / 2600 2300 / 2600 Other: Urine Color Pale Pale Urine Appearance Hematuria Hematuria Data Completed and Pending Labs on day of discharge: Labs from last 24 hours 08/19/22 07:05 WBC 21.88 H RBC 3.79 L Hgb 12.0 Hct 34.7 L MCV 92 MCH 31.7 MCHC 34.6 RDW 14.0 Plt Count MPV
== END 2022-08-19 16:00 | disposition home or self-care (01) | DRG 807 ==
PROVIDERS: Advanced Practice Midwife; Admitting Provider Advanced Practice Midwife; PCP Nurse Practitioner Family; Visit Provider Advanced Practice Midwife
DX: O48.0 Post-term pregnancy (principal); Z37.0 Single live birth; Z3A.41 41 weeks gestation of pregnancy; F90.9 Attention-deficit hyperactivity disorder, unspecified type; K59.01 Slow transit constipation; F32.9 Major depressive disorder, single episode, unspecified; K58.9 Irritable bowel syndrome, unspecified; O69.89X0 Labor and delivery complicated by other cord complications, not applicable or unspecified; O99.62 Diseases of the digestive system complicating childbirth; O99.344 Other mental disorders complicating childbirth; O77.0 Labor and delivery complicated by meconium in amniotic fluid
CPT/HCPCS: 36415; 85027; 86850; 86900; 86901; 87635; J3490

== ENCOUNTER 2024-02-27 17:17 | Emergency (ER) | payer BC, SELFPAY ==
[2024-02-27] VITALS (17 sets, daily range): BP systolic 100–122; BP diastolic 55–83; PULSE 79–92; RESP 16; TEMP 36.1; O2SAT 97–100
--- NOTE | 2024-02-27 17:40 | ED.GENADUL_ITS ---
Discharge Plan Disposition Patient Disposition: Home Discharge Details Clinical Impression: Constipation Primary Care Provider: Shani Gomez ED Provider: Kristina Robles Home Meds and New Rx's Prescriptions: Continued salicylic acid 40 % plaster 1 applic topical Q2D PRN (Reason: callus removal) Qty: 18 0RF magnesium 250 mg tablet 250 mg PO DAILY PRN PNV,calcium 04-qiyv-somlv acid 27 mg iron- 1 mg tablet 1 tab PO DAILY Qty: 90 4RF Rx Instructions: give with food (meal/snack) polyethylene glycol 3350 [Miralax] 17 gram/dose powder 17 g PO DAILY PRN (Reason: constipation) Qty: 510 4RF Discharge Instructions Additional Instructions: Please call [facility] first thing in the morning to schedule follow-up appointment with repeat hCG on Tuesday. Please take your MiraLAX at least once daily, you may use it twice daily as needed if you continue to have hard/infrequent stools. Continue using other stool softeners and constipation management agents as needed. Return to emergency care if you develop new abdominal pain, uncontrollable vomiting, vaginal bleeding, or new concerning symptoms that you would like to have checked out immediately. Ref[place]: [facility] [place] Discharge Data Discharge Date/Time-TO BE ENTERED AT DEPARTURE: 02/27/24 21:07 HPI General Date/Time Provider Initiated Documentation: 02/27/24 17:20 . HPI Narrative: Nayeli is a 28-year-old A0 female who presents to the emergency department today for evaluation of worsening generalized abdominal pain since noon today. She reports that she is not sure when she last had a bowel movement, thinks it may have been 4 days ago. She admits that she has been constipated due to taking vitamins. Today she took Gas-X, magnesium, and Deangelo powder without improvement in symptoms. She reports pain is mostly located in epigastrium, but is also located further down, is described as severe and accompanied by nausea and a couple episodes of vomiting. She denies significant past medical history other tahn IBS-C or history of abdominal surgeries. She does have an 56-arlcq-eyg child that was born at term, no complications. LMP in late December, 5 weeks 2 days gestation according to OB visit today. She has not had ultrasound to confirm intrauterine . Physical exam remarkable for uncomfortable appearing patient with softly distended abdomen. Abdomen is soft, diffusely tender to palpation, especially diarrhea and epigastrium with normoactive bowel sounds. Easy work of breathing, lung sounds clear bilaterally. Normal heart sounds. DDx includes was not limited to: ectopic , constipation, appendicitis, diverticulitis, pancreatitis, gallbladder disease, GERD I independently interpreted the following tests: CBC notable for leukocytosis, white cell count 16.06; most likely stress demargination. CMP unremarkable. hCG 140, consistent with 4 weeks of gestation. I discussed results with patient, she reports that her cycle is longer than usual 28 days rather is 36 days. She believes she is actually closer to 4 weeks . While in the emergency department Nayeli received enema, with full improvement of abdominal pain. She reports that she had a large stool and is now feeling better. Ultrasound performed, no intrauterine found. There is a 2 cm complex cyst in the right adnexa, could be corpus luteum cyst. Ectopic cannot be excluded. Discussed case with Dr. Crawford, window glazier helper. Based on patient's improvement of pain, unlikely ectopic . At this point, intrauterine would not be visible on ultrasound. Recommends repeat HCT on Tue at [facility]. Reviewed discharge instructions with patient, including management of constipation, follow up recommendations, and red flags indicate need for return to emergency care. She voices agreement with plan of care. Related Data Home Medications ?Medication ?Instructions ?Recorded ?Confirmed polyethylene glycol 3350 17 17 g PO DAILY PRN constipation 07/13/22 02/27/24 gram/dose oral powder (Miralax) #510 grams magnesium 250 mg tablet 250 mg PO DAILY PRN 01/16/24 02/27/24 vitamin with calcium 1 tab PO DAILY #90 tabs 01/16/24 02/27/24 no.72-iron 27 mg-folic acid 1 mg tablet salicylic acid 40 % topical plaster 1 applic topical Q2D PRN callus 02/02/24 02/27/24 removal #18 ea Previous Rx's ?Medication ?Instructions ?Recorded polyethylene glycol 3350 17 17 g PO DAILY PRN constipation 07/13/22 gram/dose oral powder (Miralax) #510 grams vitamin with calcium 1 tab PO DAILY #90 tabs 01/16/24 no.72-iron 27 mg-folic acid 1 mg tablet salicylic acid 40 % topical plaster 1 applic topical Q2D PRN callus 02/02/24 removal #18 ea Allergies Allergy/AdvReac Type Severity Reaction Status Date / Time hydrocodone (From Vicodin) AdvReac Nausea Verified 02/27/24 17:25 General Stated Complaint: Abd Prob SILVANA: 3 Review of Systems Narrative: see HPI Exam Const General: cooperative, healthy appearing, well developed and well groomed Nutritional Appearance: average body habitus and well nourished Orientation: alert and oriented x3 Resp Effort & Inspection: normal respiratory effort and able to speak in complete sentences Auscultation: clear to auscultation bilaterally Cardio Rate: regular rate Rhythm: regular rhythm GI Inspection: normal to inspection and distended (softly distended) Palpation: soft, not firm, no guarding and tender (diffuse) Auscultation: normal bowel sounds Course Vital Signs Vital signs: Vital Signs Temperature 36.1 C L 02/27/24 17:20 Pulse 92 H 02/27/24 17:20 Respiratory Rate 16 02/27/24 17:20 Blood Pressure 122/83 02/27/24 17:20 Pulse Oximetry 98 02/27/24 17:20 Temperature 36.1 C L 02/27/24 17:20 Temperature Source Tympanic 02/27/24 17:20 Pulse 92 H 02/27/24 17:20 Respiratory Rate 16 02/27/24 17:20 Blood Pressure 122/83 02/27/24 17:20 Blood Pressure Position Sitting 02/27/24 17:20 Pulse Oximetry 98 02/27/24 17:20 Oxygen Delivery Method Room Air 02/27/24 17:20 Oxygen Flow Rate 0 02/27/24 17:20 Medical Decision Making Quality:SDOH Health Related Social Needs: No Data to Display PFSH All Active Problems (Updated 02/27/24 @ 20:50 by Kristina Casey) Constipation (Acute) Irritable bowel syndrome with constipation (Chronic) ADHD (attention deficit hyperactivity disorder) (Chronic) Medical History Major depressive disorder Surgical History No pertinent past surgical history Family History Mother , 37 from suicide Depression Father Asthma Brother No problems noted. Brother Asthma Sister No problems noted. Daughter No problems noted. Maternal Grandfather No problems noted. Maternal Grandmother Breast cancer x 3 Paternal Grandfather No problems noted. Paternal Grandmother No problems noted. Social History Smoking/Tobacco Use Status: Current-Occasional Tobacco: How many years used: 2 Second Hand Exposure: Yes Smoking risk assessment performed?: Yes Alcohol Intake: current Alcohol Intake frequency: a few times a week Alcohol type: wine Drug use: Never Substance use type: does not use Counseling provided: none Caregiver/Support person: No Household members: friend(s) Housing: house Communication Needs: Corrective Lenses Do you need help understanding health information?: Never Pets and animals: Yes Pets and animals: dog(s) Sexually active: Yes Do you think of yourself as: straight/heterosexual Current gender identity: female What is your relationship status?: never How often do you talk on the phone with friends or family?: once per week Do you belong to any clubs or organized social groups?: no Panel score (0-1 are the most socially isolated patients): 0 What type of physical activity do you participate in: walking Duration: > 90 minutes/day Frequency: 3-4 times per week Chantal/Scientologist: None Special chantal needs: No Seatbelt use: always Helmet use: Yes Helmet use: always Drive intox or ride w/intox vibratory pile driver: No Do you feel safe at home: Yes Do you feel safe in your relationship?: Yes Female Reproductive History Menstrual control method: none History History 2 Para 1 Hx # Term Pregnancies 1 Multiple births 0 Hx # Pregnancies 0 Ectopic pregnancies 0 AB induced 1 Hx Number of Living Children 1 AB spontaneous 0 Past Pregnancies Del. Date GA/Weeks # Preg Succ Route Wgt Sex Labor Lgth Anesth esia Location Prov Complic 02/27/21 10 No 08/18/22 41 No Yes vaginal 3599.822 g Female 24hrs 9min [facility] [place] Delivery Date: 02/27/21 Last Updated by: Marbella Musa Elective Ab Delivery Date: 08/18/22 Last Updated by: HARLAN Reyes
--- OUTSIDE RECORDS SUMMARY | 2024-02-27 17:44 | XMS_ITS | Encounter Summary ---
Author Organization [facility] [place] [address] Care Team Providers Care Application Analyst Name Role Phone Kevin Carito Bryant APRN Primary Care Provider +1- [phone] Reason for Visit * Reason Onset Date Comments Constipation 01/18/2013 Encounter Details Date Type Department Care Team (Late st Contact Info) Description 01/18/2013 Telephone Pediatric [place] [address] Kim Hoover MD [facility] [place] [address] Constipation Social History Tobacco Use Types Packs/Day Years Used Date Smoking Tobacco: Passive Smo ke Exposure - Never Smoker Comments:Mom smokes outside Sex and Gender Information Value Date Recorded Sex Assigned at Not on file Gender Identity Not on file Sexual Orientation Not on file documented as of this encounter Miscellaneous Notes * Telephone Encounter - Teagan Connor RN - 01/18/2013 12:25 PM EDT Nayeli is a 17 yo with constipation. Mom called to follow up after clean out. Per Mom Nayeli is having daily stool with occasional cramping. Currently taking two bisacodyl tablets in the morning and three caps of MiraLAX. Stool is formed/soft. Will continue with current plan and follow up in February as scheduled. documented in this encounter Plan of Treatment Not on file documented as of this encounter Visit Diagnoses Not on filedocumented in this encounter Care Teams Application Analyst Relationship Specialty Start Date End Date Carito Brown, FEED BLENDER [address] [place] [address] PCP - General 11/13/12 01/24/22 documented as of this encounter
--- OUTSIDE RECORDS SUMMARY | 2024-02-27 17:44 | XMS_ITS | Clinical Summary ---
Author Organization [facility] Address [facility] [place] [address] Care Team Providers Care Finishing Department Supervisor Name Role Phone Unknown Primary Care Provider Unavailabl e Allergies No known active allergies Medications Medication Sig Dispensed Refills Start Date End Date Status medroxyPROGESTERon e (Depo-SubQ Provera) 104 mg/0.65 mL Syringe Inject 104 mg subcutaneously Every 12 weeks. Active bisacodyl (DULCOLAX) 5 mg EC tablet Take 5 mg by mouth daily as needed. Active M-Susy Plus 27 mg iron- 1 mg Tablet Take 1 tablet by mouth daily. 12/10/2021 Active docusate sodium (Colace) 100 mg Capsule Take 100 mg by mouth 2 times daily. 12/10/2021 Active Fiber-Lax 625 mg Tablet Take 2 tablets by mouth daily. 01/26/2022 Active aspirin EC 81 mg Tablet, Delayed Release (E.C.) ALTERNATE TAKING 1 TABLET ORALLY A DAY WITH 2 TABLETS A DAY 01/23/2022 Active Active Problems Problem Noted Date Diagnosed Date Weight loss 03/13/2013 Constipation 12/28/2012 Family History Medical History Relation Comments Alcohol Use Disorder Mother Depression Mother Suicide Mother Relation Status Comments Mother Social History Tobacco Use Types Packs/Day Years Used Date Smoking Tobacco: Passive Smo ke Exposure - Never Smoker Smokeless Tobacco: Never Comments:Mom smokes outside Sex and Gender Information Value Date Recorded Sex Assigned at Not on file Gender Identity Not on file Sexual Orientation Not on file Last Filed Vital Signs Vital Sign Reading Time Taken Comments Blood Pressure 110/57 03/23/2022 12:56 PM EDT Pulse 82 03/23/2022 12:56 PM EDT Temperature 37.1 ??C (98.7 ??F) 03/23/2022 1 2:56 PM EDT Respiratory Rate 18 03/23/2022 12:5 6 PM EDT Oxygen Saturation 100% 03/23/2022 12: 56 PM EDT Inhaled Oxygen Concentration - - Weight 76.6 kg (168 lb 14.4 oz) 022 12:56 PM EDT Height 165.1 cm (5' 5) 03/23/2022 12:5 6 PM EDT Body Mass Index 28.11 03/23/2022 12:56 PM EDT Plan of Treatment Health Maintenance Due Date Last Done Comments HIV screen 2014 Hepatitis C Screening 2014 Hepatitis B vaccine (0-59 yrs) (1) 2015 Tetanus/Diphtheria/Pertussis Vaccines (1 - Tdap) 06/16 PAP Smear 2017 Covid-19 Vaccine (1 - season) 2024 Influenza (Flu) vaccine (1 o f 1 - Influenza standard series) 01/29/2024 Care Teams Finishing Department Supervisor Relationship Specialty Start Date End Date Unknown None PCP - General 02/20/22
--- OUTSIDE RECORDS SUMMARY | 2024-02-27 17:44 | XMS_ITS | Encounter Summary ---
Author Organization [facility] [place] [address] Care Team Providers Care Underground Conduit Installer Name Role Phone Unknown Primary Care Provider Unavailabl e Reason for Visit * Reason Comments Ultrasound Encounter Details Date Type Department Care Team (Late st Contact Info) Description 03/23/2022 3:00 PM EDT Office Visit [place]stetrics [place] [address] Eva Lawson MD [facility] DR OBSTETRICS [place] [address] Family history of defect Social History Tobacco Use Types Packs/Day Years Used Date Smoking Tobacco: Passive Smo ke Exposure - Never Smoker Smokeless Tobacco: Never Comments:Mom smokes outside Comments Yes Sex and Gender Information Value Date Recorded Sex Assigned at Not on file Gender Identity Not on file Sexual Orientation Not on file documented as of this encounter Last Filed Vital Signs Vital Sign Reading [...] Mass Index 28.11 03/23/2022 12:56 PM EDT documented in this encounter Progress Notes * Eva Lawson MD - 03/23/2022 3:00 PM EDT Maternal Medicine Consult Note Nayeli Wright is a 26 y.o. with an VENECIA of 08/05/22 Not found. who is at 20w5d gestation. Sheis seen in consultation at the request of Marbella Musa CNM for evaluation of a family history of structural . She was seen today for maternal- medicine consultation, ultrasound evaluation and genetic counseling with [facility]. The patient reports that this has been uncomplicated to date. She had cell free DNA testing this low risk for trisomy 21, 18 and 13. She has a cystic fibrosis gene mutation. The father of the baby has not been screened. Her Past Medical and Surgical history is remarkable for: Single uncomplicated elective termination of A family history was obtained. The father of the baby and his brother had facial cleft at . There is no other history of structural abnormalities, inheritable disease, learning disability, intellectual disability, epilepsy, or repetitive loss. The ethnic backgrounds do not suggest a significantly increased genetic risk. Meds: (PNV,calcium 60-hbcn-yrqgy acid), aspirin EC, bisacodyl EC, docusate sodium, medroxyPROGESTERone, and polycarbophil No Known Allergies Record Review No additional issues Review of Systems Constitutional: fatigued Contractions: none Leaking: none Bleeding: none Physical Exam Last Set of Vitals: BP 110/57 Pulse 82 Temp 37.1 ??C (98.7 ??F) Resp 18 Ht 165.1 cm (5' 5) Wt 76.6 kg (168 lb 14.4 oz) LMP 10/29/2021 (Exact Date) SpO2 100% BMI 28.11 kg/m?? Weight: 76.6 kg (168 lb 14.4 oz) General: alert, well appearing, in no apparent distress Abdomen: abdomen is soft without significant tenderness Psychiatric: Affect is appropriate. Uterine Size: consistent with dates Ultrasound 2nd Trimester - Detailed Morphology - Summary Single intrauterine with a gestational age of 20w 5d based on LMP (10/29/21) Composite age based on the current ultrasound alone is 19w 5d. Current growth parameters are consistent with prior dating indicating normal growth. Amniotic fluid volume is subjectively normal. Detailed anatomic evaluation was performed and no structural abnormalities are noted. Assessment and Recommendations: 26 y.o. at 20w5d weeks' gestation. Family history of facial cleft. The inheritance is likely multifactorial with a recurrence risk about 4%. Today's normal ultrasound significantly decreases but does not eliminate a facial cleft particularly palate. No further scans will be needed. As the patient has a cystic fibrosis gene mutation, we offered the father of the baby to be tested.Without that information we cannot provide a meaningful assessment of a the chance of clinically significant cystic fibrosis. I appreciate the opportunity to be involved in this patient's care and am available if further questions should arise. Eva Lawson MD 03/23/2022 Cc: Marbella Musa CNM This was a 30 minute encounter which was face to face consultation regarding the family history andrisk of abnormality. documented in this encounter Plan of Treatment Not on file documented as of this encounter Visit Diagnoses Diagnosis Family history of defect Family history of congenital anomalies documented in this encounter Care Teams Underground Conduit Installer Relationship Specialty Start Date End Date Unknown None PCP - General 02/20/22 documented as of this encounter
--- OUTSIDE RECORDS SUMMARY | 2024-02-27 17:44 | XMS_ITS | Encounter Summary ---
Author Organization [facility] Address [address] [place] [address] Care Team Providers Care Platform Beater Name Role Phone Unavailable Primary Care Provider Unavailabl e Encounter Details Date Type Department Care Team (Late st Contact Info) Description 02/25/2022 Lab Requisition [facility] Pathology & Laboratory Medicine - [facility] [address] [place] [address] Outr Resulting Lab, Provider Social History Tobacco Use Types Packs/Day Years Used Date Smoking Tobacco: Never Assessed Sex and Gender Information Value Date Recorded Sex Assigned at Not on file Gender Identity Not on file Sexual Orientation Not on file documented as of this encounter Plan of Treatment Not on file documented as of this encounter Procedures Procedure Name Priority Date/Time Associated Diagnosis Comments CHLAMYDIA/N. GONORRHOEAE AMPLIFIED NUCLEIC ACID Routine 02/24/2022 15:05 EDT documented in this encounter Results * (ABNORMAL) CHLAMYDIA/N. GONORRHOEAE AMPLIFIED RNA (02/24/2022 15:05 EDT) Neisseria gonorrhoeae Result Negative Negative 02/26/2022 15:08 EDT [facility] Chlamydia trachomatis Result Positive(A) Negative 02/26/2022 15:08 EDT [facility] Urine URINE / Unknown 02/24/2022 1 5:05 EDT 02/25/2022 19:03 EDT Narrative [facility] - 02/26/2022 15:08 EDT A first catch urine specimen is acceptable for detection of Gonorrhea and Chlamydia, but might detect up to 10% fewer infections when compared with vaginal and endocervical swab samples. Provider Outr Resulting Lab MICROBIOLOGY - GENERAL ORDERABLES [facility] [address] [place] [address] documented in this encounter Visit Diagnoses Not on filedocumented in this encounter
--- OUTSIDE RECORDS SUMMARY | 2024-02-27 17:44 | XMS_ITS | Encounter Summary ---
Author Organization [facility] Address [address] [place] [address] Care Team Providers Care Field Sales Trainer Name Role Phone Unavailable Primary Care Provider Unavailabl e Encounter Details Date Type Department Care Team (Late st Contact Info) Description 01/22/2022 Lab Requisition [facility] Pathology & Laboratory Medicine - [facility] [address] [place] [address] Outr Resulting Lab, Provider Social History Tobacco [...] Procedure Name Priority Date/Time Associated Diagnosis Comments HEPATITIS C AB W REFLEX TO HCV RNA BY PCR Routine 01/22/2022 10:36 EDT HEPATITIS B SURFACE ANTIGEN Routine 01/22/2022 10:36 EDT documented in this encounter Results * HEPATITIS B SURFACE ANTIGEN (01/22/2022 10:36 EDT) Hep B Surface Ag Negative Negative 01/25/2022 10:08 EDT [facility] Blood VENOUS BLOOD / Unknown 01/22/2022 10:36 EDT 01/22/2022 17:36 EDT Provider Outr Resulting Lab CHEMISTRY & BLOOD GAS ORDERABLES [facility] [address] [place] [address] * HEPATITIS C AB W REFLEX TO HCV RNA BY PCR (01/22/2022 10:36 EDT) Hep C Antibody Negative Negative 01/25/2022 10:47 EDT [facility] Blood VENOUS BLOOD / Unknown 01/22/2022 10:36 EDT 01/22/2022 17:36 EDT Provider Outr Resulting Lab CHEMISTRY & BLOOD GAS ORDERABLES [facility] [address] [place] [address] documented in this encounter Visit Diagnoses Not on filedocumented in this encounter
--- OUTSIDE RECORDS SUMMARY | 2024-02-27 17:44 | XMS_ITS | Encounter Summary ---
Author Organization [facility] Address [facility] [place] [address] Care Team Providers Care Head Turning Machine Operator Name Role Phone KevinCarito Annette HARRIS Primary Care Provider +1- [phone] Encounter Details Date Type Department Care Team (Late st Contact Info) Description 03/16/2013 Orders Only Pediatric [place] [address] Kim Hoover MD [facility] [place] [address] Social History Tobacco Use Types Packs/Day Years [...] Procedure Name Priority Date/Time Associated Diagnosis Comments FILM LIBRARY STORAGE ONLY DX ABDOMEN Routine 03/16/2013 6:40 AM EDT documented in this encounter Results * Film Library- Storage only DX Abdomen (03/16/2013 6:40 AM EDT) 03/16/2013 6:40 AM EDT Narrative [facility] - 01/23/2014 4:47 PM EDT This is a non-reportable exam. Procedure Note Andrew Dutton - 01/23/2014 This is a non-reportable exam. Kim Hoover MD [facility] FILM LIBRARY ORD ERABLES [facility] [address] [facility] [place] [address] documented in this encounter Visit Diagnoses Not on filedocumented in this encounter Care Teams Head Turning Machine Operator Relationship Specialty Start Date End Date Carito Brown, BALANCE WHEEL SCREW HOLE DRILLER [address] [place] [address] PCP - General 11/13/12 01/24/22 documented as of this encounter
--- OUTSIDE RECORDS SUMMARY | 2024-02-27 17:44 | XMS_ITS | Encounter Summary ---
Author Organization [facility] [place] [address] Care Team Providers Care Manager Rn Name Role Phone Carito Brown APRN Primary Care Provider +1- [phone] Encounter Details Date Type Department Care Team (Late st Contact Info) Description 03/18/2013 Telephone Pediatric [place] [address] Kim Hoover MD [facility] [address] [place] [address] Social History Tobacco Use Types Packs/Day Years Used Date Smoking Tobacco: Passive Smo ke Exposure - Never Smoker Comments:Mom smokes outside Sex and Gender Information Value Date Recorded Sex Assigned at Not on file Gender Identity Not on file Sexual Orientation Not on file documented as of this encounter Miscellaneous Notes * Telephone Encounter - Kim Hoover MD - 03/18/2013 9:20 AM EDT Nl CRP, CBC, ESR and liver-no crohn's liver disease documented in this encounter Plan of Treatment Not on file documented as of this encounter Visit Diagnoses Not on filedocumented in this encounter Care Teams Manager Rn Relationship Specialty Start Date End Date Carito Brown APRN [address] [place] [address] PCP - General 11/13/12 01/24/22 documented as of this encounter
--- OUTSIDE RECORDS SUMMARY | 2024-02-27 17:44 | XMS_ITS | Encounter Summary ---
Author Organization Formerly [facility] Address [facility] [address] Care Team Providers Care Spinning Frame Changer Name Role Phone Carito Brown APRN Primary Care Provider +1- [phone] Encounter Details Date Type Department Care Team (Late st Contact Info) Description 12/28/2012 10:32 AM EDT - 12/28/2012 11:59 PM EDT Hospital Encounter XRay at [address] [place] [address] Constipation Social History Tobacco Use Types Packs/Day Years Used Date Smoking Tobacco: Passive Smo ke Exposure - Never Smoker Comments:Mom smokes outside Sex and Gender Information Value Date Recorded Sex Assigned at Not on file Gender Identity Not on file Sexual Orientation Not on file documented as of this encounter Medications at Time of Discharge Medication Sig Dispensed Refills Start Date End Date medroxyPROGESTERone (Depo-SubQ Provera) 104 mg/0.65 mL Syringe Inject 104 mg subcutaneously Every 12 weeks. polyethylene glycol (MIRALAX) 17 gram packet Take 51 g by mouth daily. 03/13/2013 documented as of this encounter Plan of Treatment Not on file documented as of this encounter Procedures Procedure Name Priority Date/Time Associated Diagnosis Comments XR ABDOMEN 1 VIEW Routine 12/28/2012 10: 45 AM EDT Constipation documented in this encounter Results * XR abdomen 1 view (12/28/2012 10:45 AM EDT) Anatomical Region Laterality Modality Abdomen N/A Radiographic Nikki ging 12/28/2012 10:4 5 AM EDT Narrative 12/28/2012 11:03 AM EDT Next. Examination DIAG ABDOMEN SINGLE VIEW Clinical History constipation Comparison None Technique Findings Single view of the abdomen without comparison demonstrates a normal bowel gas pattern. ??There is a mild degree of retained fecal material within the rectal vault. ??There are 5 dzo-fhb-amvkiyj lumbar type vertebral bodies in the right and left femoral heads are located within normally formed acetabulum. ??The SI joints are intact the sacrum is normally formed. ??Incidental note is made of a spina bifida occulta at S1 . Impression MILD TO MODERATE RETAINED FECAL MATERIAL IN RECTAL VAULT. SACRUM INTACT. NO HETEROTOPIC CALCIFICATIONS SEEN. ?? Procedure Note Mely León MD - 12/28/2012 Next. Examination DIAG ABDOMEN SINGLE VIEW Clinical History constipation Comparison None Technique Findings Single view of the abdomen without comparison demonstrates a normal bowelgas pattern. There is a mild degree of retained fecal material within therectal vault. There are 5 vky-tmf-gftgasr lumbar type vertebral bodies in theright and left femoral heads are located within normally formed acetabulum. TheSI joints are intact the sacrum is normally formed. Incidental note is madeof a spina bifida occulta at S1 . Impression MILD TO MODERATE RETAINED FECAL MATERIAL IN RECTAL VAULT. SACRUM INTACT.NO HETEROTOPIC CALCIFICATIONS SEEN. Kim Hoover MD IMG DX ORDERABLES documented in this encounter Visit Diagnoses Diagnosis Constipation Unspecified constipation documented in this encounter Care Teams Spinning Frame Changer Relationship Specialty Start Date End Date Carito Brown, GOVERNMENT INSTRUCTOR [address] [place] [address] PCP - General 11/13/12 01/24/22 documented as of this encounter
--- OUTSIDE RECORDS SUMMARY | 2024-02-27 17:44 | XMS_ITS | Encounter Summary ---
Author Organization [facility] Address [address] [place] [address] Care Team Providers Care Clinical Lab Assistant Name Role Phone Unavailable Primary Care Provider Unavailabl e Encounter Details Date Type Department Care Team (Late st Contact Info) Description 01/22/2022 Lab Requisition [facility] Pathology & Laboratory Medicine - [facility] [address] [place] [address] Outr Resulting Lab, Provider Social History Tobacco [...] Procedure Name Priority Date/Time Associated Diagnosis Comments HOLD SST Today 01/22/2022 10:36 EDT HOLD SST Today 01/22/2022 10:36 EDT RUBELLA IGG ANTIBODY Today 01/22/2022 10:36 EDT VARICELLA IGG ANTIBODY Today 01/22/2022 10:36 EDT documented in this encounter Results * HOLD SST (01/22/2022 10:36 EDT) Hold Hold 01/22/2022 18:45 EDT [facility] Blood VENOUS BLOOD / Unknown 01/22/2022 10:36 EDT 01/22/2022 17:37 EDT Provider Outr Resulting Lab LAB INFO SER VICE AND SUPPORT & PHONE RESULT [facility] [address] [place] [address] * HOLD SST (01/22/2022 10:36 EDT) Hold Hold 01/22/2022 18:45 EDT [facility] Blood VENOUS BLOOD / Unknown 01/22/2022 10:36 EDT 01/22/2022 17:37 EDT Provider Outr Resulting Lab LAB INFO SER VICE AND SUPPORT & PHONE RESULT Performing Organization Address [facility] Co de Phone Number [facility] [address] [place] [address] * VARICELLA IGG ANTIBODY (01/22/2022 10:36 EDT) Varicella IgG Ab Positive See Note 01/25/2022 10:08 EDT [facility] Comment:Presence of detectab le Varicella Zoster virus IgG antibodies. Blood VENOUS BLOOD / Unknown 01/22/2022 10:36 EDT 01/22/2022 17:36 EDT Provider Outr Resulting Lab IMMUNOLOGY A ND SEROLOGY ORDERABLES Performing Organization Address [facility]/ZIP Co de Phone Number [facility] [address] [place] [address] * RUBELLA IGG ANTIBODY (01/22/2022 10:36 EDT) Rubella IgG Ab Positive See Note 01/25/2022 10:09 EDT [facility] Comment:Positive for IgG ant ibodies to Rubella virus. Blood VENOUS BLOOD / Unknown 01/22/2022 10:36 EDT 01/22/2022 17:36 EDT Provider Outr Resulting Lab CHEMISTRY & BLOOD GAS ORDERABLES Performing Organization Address [facility] Co de Phone Number [facility] [address] [place] [address] documented in this encounter Visit Diagnoses Not on filedocumented in this encounter
--- OUTSIDE RECORDS SUMMARY | 2024-02-27 17:44 | XMS_ITS | Clinical Summary ---
Author Organization [facility] Address [address] [place] [address] Care Team Providers Care Potato Pancake Frier Name Role Phone Unavailable Primary Care Provider Unavailabl e Social History Tobacco Use Types Packs/Day Years Used Date Smoking Tobacco: Never Assessed Sex and Gender Information Value Date Recorded Sex Assigned at Not on file Gender Identity Not on file Sexual Orientation Not on file Plan of Treatment Health Maintenance Due Date Last Done Comments Hepatitis B Vaccine (1 of 3 - 19+ 3-dose series) 06/16 COVID-19 Vaccine (2022- season) 2023 Hepatitis C Screen Completed 01/22/2022 Procedures Procedure Name Priority Date/Time Associated Diagnosis Comments HEPATITIS C AB W REFLEX TO HCV RNA BY PCR Routine 01/22/2022 10:36 EDT from Last 3 Months or Most Recently Relevant to Health Maintenance Results * HEPATITIS C AB W REFLEX TO HCV RNA BY PCR (01/22/2022 10:36 EDT) Hep C Antibody Negative Negative 01/25/2022 10:47 EDT [facility] Blood VENOUS BLOOD / Unknown 01/22/2022 10:36 EDT 01/22/2022 17:36 EDT Provider Outr Resulting Lab CHEMISTRY & BLOOD GAS ORDERABLES [facility] [address] [place] [address] from Last 3 Months or Most Recently Relevant to Health Maintenance
--- OUTSIDE RECORDS SUMMARY | 2024-02-27 17:44 | XMS_ITS | Encounter Summary ---
Author Organization [facility] [place] [address] Care Team Providers Care Music Composer Name Role Phone Carito Brown APRN Primary Care Provider +1- [phone] Reason for Visit * Reason Comments Follow-up Encounter Details Date Type Department Care Team (Latest Contact Info) Description 03/13/2013 10:00 AM EDT Follow-Up Pediatric [place] [address] Kim Hoover MD [facility] [address] [place] [address] Constipation (Primary Dx); Weight loss Discharge Disposition: Home Social History Tobacco Use Types Packs/Day Years Used Date Smoking Tobacco: Passive Smo ke Exposure - Never Smoker Comments:Mom smokes outside Sex and Gender Information Value Date Recorded Sex Assigned at Not on file Gender Identity Not on file Sexual Orientation Not on file documented as of this encounter Last Filed Vital Signs Vital Sign Reading Time Taken Comments Blood Pressure 112/66 03/13/2013 10:02 AM EDT Pulse - - Temperature - - Respiratory Rate - - Oxygen Saturation - - Inhaled Oxygen Concentration - - Weight 60.2 kg (132 lb 11.5 oz) 013 10:02 AM EDT Height 163.9 cm (5' 4.53) 03/13/2013 1 0:02 AM EDT Body Mass Index 22.41 03/13/2013 10:02 AM EDT Body Mass Index Percentile 68.11% 03/13 10:02 AM EDT Growth Chart: CDC (Girls, 2- 20 Years) documented in this encounter Progress Notes * Kim Hoover MD - 03/13/2013 10:50 AM EDT Seen 12/28/12 for long standing constipation though due to slow transit and dilated rectum nl. Cleanout at home and then 2 dulcolax tabs AM and 3 caps miralax and now 1 cap. One stool a day, nl diameter with some urge and sometimes easy to push. No soils. Stooling better but not large amounts. Still abd pain-mostly RLQ or LUQ now. Several times a day randomly. No vomiting but nausea after eating. Decreased appetite recently. Low energy for months. Feels stressed-teenage stuff. Grades lowerthis year. Not depressed but anxious at times. Sleeps well-maybe too much sometmes Diet good variety without much mild or soda Nl celiac, TSH, inflammatory labs 10/09 PE pale and lost 6 lbs in 2.5 months Lungs Clear, cor nl sounds. Abd sense of fullness RLQ and mildly painful. Imp constipation -unsure how much better. Still abd pain -some crohn's features P labs KUB with marker study locally on same meds If still lots of stool, try amitza next documented in this encounter Plan of Treatment Not on file documented as of this encounter Procedures Procedure Name Priority Date/Time Associated Diagnosis Comments DIFFERENTIAL, AUTOMATED Routine 03/13/2013 11:00 AM EDT SEDIMENTATION RATE Routine 03/13/2013 11 :00 AM EDT Weight loss CBC (WITH DIFF) Routine 03/13/2013 11:00 AM EDT Weight loss CRP, CARDIAC RISK (HS CRP) Routine 03/13/2013 11:00 AM EDT Weight loss HEPATIC FUNCTION PANEL Routine 3 11:00 AM EDT Weight loss documented in this encounter Results * Differential, Automated (03/13/2013 11:00 AM EDT) Neutrophil % 59.7 37.0 - 77.0 % CERNER MILLENNIUM Neutrophil Absolute 3.00 1.50 - 8.00 x10(3)/mcL CERNER MILLENNIUM Lymph % 30.5 20.0 - 50.0 % CERNER MILLENNIUM Lymphocytes Abs 1.5 1.2 - 5.2 x10(3)/mcL CERNER MILLENNIUM Monocyte % 8.0 2.0 - 12.0 % CERNER MILLENNIUM Monocyte Abs 0.4 0.2 - 1.0 x10(3)/mcL CERNER MILLENNIUM Eos % 1.4 0.0 - 7.0 % CERNER MILLENNIUM Eosinophils Abs 0.1 0.0 - 0.5 x10(3)/mcL CERNER MILLENNIUM Basophil % 0.4 0.0 - 2.0 % CERNER MILLENNIUM Baso Absolute 0.0 0.0 - 0.2 x10(3)/mcL CERNER MILLENNIUM Immature Gran % 0.00 0.00 - 0.66 % CERNER MILLENNIUM Comment: Immature granulocytes(IG's)percentage and absolute count will include metamyelocytes, myelocytes, and promyelocytes. Blood smears from CBCs yielding IG's will be scanned manually for concordance. If this scan disagrees with the automated IG or if promyelocytes are noted, a manual differential will be performed. Immature Gran Absolute 0.00 0.00 - 0.05 x10(3)/mcL CERNER MILLENNIUM Blood specimen (specimen) 03/13/2013 11:00 AM EDT 03/13/2013 11:06 AM EDT Kim Hoover MD HEMATOLOGY ORDERABLE S CERNER MILLENNIUM * (ABNORMAL) Hepatic Function Panel (03/13/2013 11:00 AM EDT) Protein, Total 6.9 6.4 - 8.3 gm/dL CERNER MILLENNIUM Albumin 4.5 3.2 - 5.2 gm/dL CERNER MILLENNIUM Aspartate Aminotransferase 21 5 - 30 unit/L CERNER MILLENNIUM Alanine Aminotransferase 15 0 - 25 unit/L CERNER MILLENNIUM Alkaline Phosphatase 49(L) 55 - 140 unit/L CERNER MILLENNIUM Bilirubin, Total 0.3 <=1.0 mg/dL CERNER MILLENNIUM Bilirubin, Direct 0.1 0.0 - 0.3 mg/dL CERNER MILLENNIUM Blood specimen (specimen) 03/13/2013 11:00 AM EDT 03/13/2013 11:06 AM EDT Narrative Resulting Agency Comment Spec In Lab Kim Hoover MD CHEMISTRY ORDERABLES Performing Organization Address [facility] de Phone Number CERNER MILLENNIUM * Sedimentation rate (03/13/2013 11:00 AM EDT) Sedimentation Rate Automated 7 0 - 20 mm/hr CERNER MILLENNIUM Blood specimen (specimen) 03/13/2013 11:00 AM EDT 03/13/2013 11:06 AM EDT Narrative Resulting Agency Comment Spec In Lab Kim Hoover MD HEMATOLOGY ORDERABLE S Performing Organization Address [facility] de Phone Number CERJOYCE TAVARESIUM * High Sensitivity CRP (03/13/2013 11:00 AM EDT) C-Reactive Protein High Sensitivity 0.2 mg/L CERNER MILLENNIUM Comment: Interpretations: 1) For accurate cardiac risk assessment, the average of 2 values >2 weeks apart should be obtained (ref 1&2). A value >10 mg/L indicates an inflammatory condition, concentrations >10 mg/L should not be used for cardiac risk assessment. ?<1.0 mg/L: low risk ?1.0 - 3.0 mg/L: moderate risk ?>3.0 mg/L: high risk groups for future cardiovascular events 2) The general reference range of apparently healthy individuals using this test is <5.0 mg/L (derived from the test package insert) References: 1. Antione SCHNEIDER et. al. ??AHA/CDC Scientific Statement: Markers of Inflammation and Cardiovascular Disease. ??Circulation 2003; 107:499-511 2. Mathew PM. ??Clinical applications of C-reactive protein for cardiovascular disease detection and prevention. ??Circulation 2003; 107:363-369 Blood specimen (specimen) 03/13/2013 11:00 AM EDT 03/13/2013 11:06 AM EDT Narrative Resulting Agency Comment Spec In Lab Kim Hoover MD CHEMISTRY ORDERABLES Performing Organization Address [facility] Co de Phone Number CERNER MILLENNIUM * (ABNORMAL) CBC (with Diff) (03/13/2013 11:00 AM EDT) White Blood Cell 5.0 4.5 - 13.0 x10(3)/mc L CERNER MILLENNIUM Red Blood Cell 4.24 4.10 - 5.10 x10(6)/mc L CERNER MILLENNIUM Hemoglobin 12.6 12.0 - 16.0 gm/dL CERNER MILLENNIUM Hematocrit 38.0 36.0 - 46.0 % CERNER MILLENNIUM Mean Cell Volume 89.6 76.0 - 98.0 fL CERNER MILLENNIUM Mean Cell Hemoglobin 29.7 25.0 - 35.0 pg CERNER MILLENNIUM Mean Cell Hemoglobin Concentration 33.2 32.0 - 36.5 gm/dL CERNER MILLENNIUM Platelet 193 145 - 370 x10(3)/mc L CERNER MILLENNIUM RDW Standard Deviation 44.0 35.0 - 46.0 fL CERNER MILLENNIUM RDW coefficient of variation 13.4 10.9 - 14.4 % CERNER MILLENNIUM Mean Platelet Volume 12.4(H) 9.0 - 12.0 fL CERNER MILLENNIUM Blood specimen (specimen) 03/13/2013 11:00 AM EDT 03/13/2013 11:06 AM EDT Narrative Resulting Agency Comment Spec In Lab Kim Hoover MD HEMATOLOGY ORDERABLE S Performing Organization Address City/[facility]/ZIP Co de Phone Number ISAC GAR documented in this encounter Visit Diagnoses Diagnosis Constipation- Primary Unspecified constipation Weight loss Loss of weight documented in this encounter Care Teams Music Composer Relationship Specialty Start Date End Date Carito Brown, PHYSICIAN RELATIONS SPECIALIST [address] [place] [address] PCP - General 11/13/12 01/24/22 documented as of this encounter
--- OUTSIDE RECORDS SUMMARY | 2024-02-27 17:44 | XMS_ITS | Encounter Summary ---
Author Organization [facility] [place] [address] Care Team Providers Care Poured Pipe Maker Name Role Phone Carito Brown APRN Primary Care Provider +1- [phone] Encounter Details Date Type Department Care Team (Late st Contact Info) Description 03/19/2013 External Results XRay at [address] [place] [address] Provider, Scanning Social History Tobacco Use Types Packs/Day Years [...] Procedure Name Priority Date/Time Associated Diagnosis Comments MRI/MRA SCAN Routine 03/16/2013 IMPLANTABLE DEVICES SCAN Routine 03/16/2013 documented in this encounter Results * Scan Doc: Implantable Devices (03/16/2013) Scanning Provider MEDIA MGR SCAN EXT O RDR/RSLT * Scan Doc: MRI/MRA (03/16/2013) Anatomical Region Laterality Modality Other Scanning Provider MEDIA MGR SCAN EXT O RDR/RSLT documented in this encounter Visit Diagnoses Not on filedocumented in this encounter Care Teams Poured Pipe Maker Relationship Specialty Start Date End Date Carito Brown APRN [address] [place] [address] PCP - General 11/13/12 01/24/22 documented as of this encounter
--- OUTSIDE RECORDS SUMMARY | 2024-02-27 17:44 | XMS_ITS | Encounter Summary ---
Author Organization [facility] [place] [address] Care Team Providers Care Video Photographer Name Role Phone Carito Brown CHURCH ADMINISTRATOR Primary Care Provider +1- [phone] Encounter Details Date Type Department Care Team (Late st Contact Info) Description 03/25/2013 Telephone Pediatric [place] [address] Kim Hoover MD [facility] [place] [address] Social History Tobacco Use Types Packs/Day Years Used Date Smoking Tobacco: Passive Smo ke Exposure - Never Smoker Comments:Mom smokes outside Sex and Gender Information Value Date Recorded Sex Assigned at Not on file Gender Identity Not on file Sexual Orientation Not on file documented as of this encounter Miscellaneous Notes * Telephone Encounter - Kim Hoover MD - 03/25/2013 10:19 AM EDT Marker study taking 2 dulcolax and 1 cap miralax. Not much stool in colon and only 2 markers left at 72 hours. Nl labs 10/09 -some weight loss Imp this laxative routine is keeping stool moving well. Abd pain is not due to constipation P continue the laxatives and see in a few weeks if still having pain, losing weight documented in this encounter Plan of Treatment Not on file documented as of this encounter Visit Diagnoses Not on filedocumented in this encounter Care Teams Video Photographer Relationship Specialty Start Date End Date Carito Brown, CHURCH ADMINISTRATOR [address] [place] [address] PCP - General 11/13/12 01/24/22 documented as of this encounter
--- OUTSIDE RECORDS SUMMARY | 2024-02-27 17:44 | XMS_ITS | Encounter Summary ---
[place] [address] Care Team Providers Care Boarding House Manager Name Role Phone Luiza Cole APRN Primary Care Provider Reason for Referral * Consultation (Routine) - Closed Specialty Diagnoses / Procedures Referred By Kt t Referred To Contact Obstetrics and Gynecology Diagnoses Family history of other congenital malformations, deformations and chromosomal abnormalities Encounter for supervision of normal , unspecified, unspecified trimester Irritable bowel syndrome, unspecified Marbella Musa CNM [address] [place] [address] [address] [place] [address] [facility] Scenery Builder [address] [place] [id number] Referral ID Status Reason Start Date Expiration Date V isits Requested Visits Authorized [id number] Closed Consult, Test & Treat PCP Updated and/or Approved 01/25/2022 01/25/2023 2 2 Encounter Details Date Type Department Care Team (Late st Contact Info) Description 01/25/2022 Transcribe Orders eDH Incoming Referrals [phone] Marbella Musa CNM [address] [place] [address] [address] [place], [place] [id number] Family history of congenital anomalies Social History Tobacco Use Types Packs/Day Years Used Date Smoking Tobacco: Passive Smo ke Exposure - Never Smoker Comments:Mom smokes outside Sex and Gender Information Value Date Recorded Sex Assigned at Not on file Gender Identity Not on file Sexual Orientation Not on file documented as of this encounter Plan of Treatment Scheduled Referrals Name Type Priority Associated Diagnoses Orde r Schedule Referral to Maternal Medicine Outpatient Referral Routine Family history of congenital anomalies Ordered: 01/25/2022 documented as of this encounter Visit Diagnoses Diagnosis Family history of congenital anomalies documented in this encounter Care Teams Boarding House Manager Relationship Specialty Start Date End Date Luiza Cole APRN [address] [place] [address] [address] [place] [address] PCP - General Family Medicine 01/25/22 02/19/22 documented as of this encounter
--- OUTSIDE RECORDS SUMMARY | 2024-02-27 17:44 | XMS_ITS | Encounter Summary ---
[place] [address] Care Team Providers Care Early Morning Babysitter Name Role Phone Unknown Primary Care Provider Unavailabl e Reason for Referral * Diagnostic Test (Routine) - Closed Specialty Diagnoses / Procedures Referred By Kt t Referred To Contact Radiology Diagnoses Family history of congenital anomalies , unspecified gestational age Irritable bowel syndrome complicating , second trimester Procedures US OB Detailed Morphology Marbella Musa CNM [address] [place] [address] [address] [place] [address] [place] [address] Referral ID Status Reason Start Date Expiration Date V isits Requested Visits Authorized [id number] Closed Specialty Service Requested 02/03/2022 08/04/2023 1 1 Reason for Visit * Diagnostic Test (Routine) - Closed Specialty Diagnoses / Procedures Referred By Contac t Referred To Contact Radiology Diagnoses Family history of congenital anomalies , unspecified gestational age Irritable bowel syndrome complicating , second trimester Procedures US OB Detailed Morphology Marbella Musa CNM [address] [place] [address] [address] [place] [address] [facility] [place] [address] Referral ID Status Reason Start Date Expiration Date V isits Requested Visits Authorized [id number] Closed Specialty Service Requested 02/03/2022 08/04/2023 1 1 Encounter Details Date Type Department Care Team (Latest Contact Info) Description 03/23/2022 12:50 PM EDT - 03/23/2022 11:59 PM EDT Hospital Encounter [place] [address] Marbella Musa, [facility] [address] [place] [address] [address] [place] [address] Family history of congenital anomalies; , unspecified gestational age; Irritable bowel syndrome complicating , second trimester Discharge Disposition: Home Social History Tobacco Use [...] Sig Dispensed Refills Start Date End Date M- Plus 27 mg iron- 1 mg Tablet Take 1 tablet by mouth daily. 12/10/2021 docusate sodium (Colace) 100 mg Capsule Take 100 mg by mouth 2 times daily. 12/10/2021 Fiber-Lax 625 mg Tablet Take 2 tablets by mouth daily. 01/26/2022 aspirin EC 81 mg Tablet, Delayed Release (E.C.) ALTERNATE TAKING 1 TABLET ORALLY A DAY WITH 2 TABLETS A DAY 01/23/2022 bisacodyl (DULCOLAX) 5 mg EC tablet Take 5 mg by mouth daily as needed. medroxyPROGESTERone (Depo-SubQ Provera) 104 mg/0.65 mL Syringe Inject 104 mg subcutaneously Every 12 weeks. documented as of this encounter Plan of Treatment Not on file documented as of this encounter Procedures Procedure Name Priority Date/Time Associated Diagnosis Comments US OB DETAILED MORPHOLOGY Routine 03/23/2022 3:02 PM EDT Family history of congenital anomalies , unspecified gestational age Irritable bowel syndrome complicating , second trimester documented in this encounter Results * US OB Detailed Morphology (03/23/2022 3:02 PM EDT) Anatomical Region Laterality Modality Pelvis, Abdomen Ultrasound 03/23/2022 2:24 PM EDT Impressions 03/23/2022 3:27 PM EDT 2nd Trimester - Detailed Morphology - Summary Single intrauterine with a gestational age of 20w 5d based on LMP ??(10/29/21) Composite age based on the current ultrasound alone is 19w 5d. Current growth parameters are consistent with prior dating indicating normal growth. Amniotic fluid volume is subjectively normal. Detailed anatomic evaluation was performed and no structural abnormalities are noted. Thank you for letting us participate in the care of this patient. If you are a health care provider and have any questions regarding this report, please contact the number above. For patients who have questions, please contact the health pharmacy care coordinator that requested your imaging first. ?Eva Lawson, Group Home Manager Electronically Signed Final Report ?? 03/23/2022 03:26 pm Narrative 03/23/2022 3:27 PM EDT OBSTETRICS REPORT ?(Signed Final 03/23/2022 03:26 pm) PATIENT INFO: ID #: ? [id number] ?: ??[birth year] (26 yrs)(F) Name: ? RANDEE WRIGHT ? Visit Date: 03/23/2022 02:24 pm PERFORMED BY: Performed By: ? Stephen LARES, ??Stephanie Attending: ?Lulu BASHIR, Eva Taylor Referred By: ?MARBELLA MUSA Location: ? [place] SERVICE(S) PROVIDED: FM - Detailed Morphology - [id number] ? [id number] INDICATIONS: 20 weeks gestation of ?Z3A.20 FOB with cleft lip and his brother had cleft lip and palate, IBS EVALUATION: Num Of Fetuses: ? 1 Heart Rate(bpm): ??139 Cardiac Activity: ? Observed, normal rhythm Presentation: ? Variable Placenta: ? Anterior P. Cord Insertion: ?Marginal Amniotic Fluid MICHAEL FV: ?subjectively normal --------- BIOMETRY: --------- BPD: ?45.3 ??mm ? G.Age: ?? 19w 5d OFD: ?60.8 ??mm HC: ?169.9 ??mm ? G.Age: ?? 19w 4d AC: ?139.9 ??mm ? G.Age: ?? 19w 3d FL: ? 31.5 ??mm ? G.Age: ?? 19w 6d HUM: ?32.1 ??mm ? G.Age: ?? 20w 5d CER: ?20.6 ??mm ? G.Age: ?? 19w 4d NFT: ?1.77 ??mm LV: ?6.8 ??mm CM: ?5.4 ??mm CI: ?74.5 ??% ? 70 - 86 FL/HC: ? 18.5 ??% ? 15.9 - 20.3 HC/AC: ? 1.21 ?1.06 - 1.25 FL/BPD: ?69.5 ??% FL/AC: ? 22.5 ??% ? - Est. FW: ? 301 ??gm ?0 lb 11 oz OB HISTORY: Blood Type: ?? A+ : ?2 ? Term: ?? 0 ? SAB: ?? 1 Living: ? 0 GESTATIONAL AGE: LMP: ? 20w 5d ?Date: ??10/29/21 ? VENECIA: ?? 08/05/22 U/S Today: ? 19w 5d ?VENECIA: ?? 08/12/22 Best: ?20w 5d ?? Det. By: ??LMP ??(10/29/21) ?VENECIA: ?? 08/05/22 TARGETED ANATOMY: Central Nervous System Calvarium/Cranial V.: ??Within Normal Limits Intracranial Monika: ? Within Normal Limits Cavum: ? Within Normal Limits Parenchyma: ?Within Normal Limits Lateral Ventricles: ?Within Normal Limits Choroid Plexus: ?Within Normal Limits Cereb./Vermis: ? Within Normal Limits Cisterna Magna: ?Within Normal Limits Midline Falx: ?Within Normal Limits Spine Cervical: ?Visualized Thoracic: ?Visualized Lumbar: ?Visualized Sacral: ?Visualized Shape/Curvature: ? Visualized Head/Neck Face: ?Within Normal Limits Lips: ?Within Normal Limits Neck: ?Within Normal Limits Nuchal Fold: ? Within Normal Limits Nasal Bone: ?Present Profile: ? Visualized Orbits/Eyes: ? Visualized Mandible: ?Visualized Maxilla: ? Visualized Thorax Thoracic Contour: ?Within Normal Limits Lungs: ? Visualized 4 Chamber View: ?Within Normal Limits Cardiac Activity: ?Normal Rhythm Rt Outflow Tract: ?Visualized Lt Outflow Tract: ?Visualized Aortic Arch: ? Visualized Ductal Arch: ? Visualized SVC: ? Visualized Cardiac [place]: ?Visualized Diaphragm: ? Visualized 3 Vessel View: ? Visualized IVC: ? Visualized Abdomen Ventral Wall: ?Visualized Cord Insertion: ?Visualized Situs: ? Normal Stomach: ? Visualized Liver: ? Visualized Lt Kidney: ? Visualized Rt Kidney: ? Visualized Bladder: ? Visualized Bowel: ? Visualized Extremities Lt Humerus: ?Within Nomal Limits Rt Humerus: ?Within Normal Limits Lt Forearm: ?Within Normal Limits Rt Forearm: ?Within Normal Limits Lt Hand: ? Within Normal Limits Rt Hand: ? Within Normal Limits Lt Femur: ?Within Normal Limits Rt Femur: ?Within Normal Limits Lt Lower Leg: ?Within Normal Limits Rt Lower Leg: ?Within Normal Limits Lt Foot: ? Visualized Rt Foot: ? Visualized Other Umbilical Cord: ?3 vessel cord Genitalia: ? Female CERVIX UTERUS ADNEXA: Right Ovary Size(cm) ? 4.8 ??x ?? 2.6 ?x ??2.1 ? Vol(ml): 13.7 Visualized Left Ovary Size(cm) ? 3.3 ??x ?? 2.3 ?x ??1.7 ? Vol(ml): 6.8 Visualized Procedure Note Eva Lawson MD - 03/23/2022 OBSTETRICS REPORT (Signed Final 03/23/2022 03:26 pm) PATIENT INFO: ID #: [id number] : [birth year] (26 yrs)(F) Name: RANDEE WRIGHT Visit Date: 03/23/2022 02:24 pm PERFORMED BY: Performed By: Stephanie Mitchell RDMS Attending: Eva Lawson MD Referred By: MARBELLA MUSA Location: [place] SERVICE(S) PROVIDED: [facility] - Detailed Morphology - [id number] INDICATIONS: 20 weeks gestation of Z3A.20 FOB with cleft lip and his brother had cleft lip and palate, IBS EVALUATION: Num Of Fetuses: 1 Heart Rate(bpm): 139 Cardiac Activity: Observed, normal rhythm Presentation: Variable Placenta: Anterior P. Cord Insertion: Marginal Amniotic Fluid MICHAEL FV: subjectively normal --------- BIOMETRY: --------- BPD: 45.3 mm G.Age: 19w 5d OFD: 60.8 mm HC: 169.9 mm G.Age: 19w 4d AC: 139.9 mm G.Age: 19w 3d FL: 31.5 mm G.Age: 19w 6d HUM: 32.1 mm G.Age: 20w 5d CER: 20.6 mm G.Age: 19w 4d NFT: 1.77 mm LV: 6.8 mm CM: 5.4 mm CI: 74.5 % 70 - 86 FL/HC: 18.5 % 15.9 - 20.3 HC/AC: 1.21 1.06 - 1.25 FL/BPD: 69.5 % FL/AC: 22.5 % 20 - 24 Est. FW: 301 gm 0 lb 11 oz OB HISTORY: Blood Type: A+ : 2 Term: 0 SAB: 1 Livin GESTATIONAL AGE: LMP: 20w 5d Date: 10/29/21 VENECIA: 08/05/22 U/S Today: 19w 5d VENECIA: 08/12/22 Best: 20w 5d Det. By: LMP (10/29/21) VENECIA: 08/05/22 TARGETED ANATOMY: Central Nervous System Calvarium/Cranial V.: Within Normal Limits Intracranial Monika: Within Normal Limits Cavum: Within Normal Limits Parenchyma: Within Normal Limits Lateral Ventricles: Within Normal Limits Choroid Plexus: Within Normal Limits Cereb./Vermis: Within Normal Limits Cisterna Magna: Within Normal Limits Midline Falx: Within Normal Limits Spine Cervical: Visualized Thoracic: Visualized Lumbar: Visualized Sacral: Visualized Shape/Curvature: Visualized Head/Neck Face: Within Normal Limits Lips: Within Normal Limits Neck: Within Normal Limits Nuchal Fold: Within Normal Limits Nasal Bone: Present Profile: Visualized Orbits/Eyes: Visualized Mandible: Visualized Maxilla: Visualized Thorax Thoracic Contour: Within Normal Limits Lungs: Visualized 4 Chamber View: Within Normal Limits Cardiac Activity: Normal Rhythm Rt Outflow Tract: Visualized Lt Outflow Tract: Visualized Aortic Arch: Visualized Ductal Arch: Visualized SVC: Visualized Cardiac [place]: Visualized Diaphragm: Visualized 3 Vessel View: Visualized IVC: Visualized Abdomen Ventral Wall: Visualized Cord Insertion: Visualized Situs: Normal Stomach: Visualized Liver: Visualized Lt Kidney: Visualized Rt Kidney: Visualized Bladder: Visualized Bowel: Visualized Extremities Lt Humerus: Within Nomal Limits Rt Humerus: Within Normal Limits Lt Forearm: Within Normal Limits Rt Forearm: Within Normal Limits Lt Hand: Within Normal Limits Rt Hand: Within Normal Limits Lt Femur: Within Normal Limits Rt Femur: Within Normal Limits Lt Lower Leg: Within Normal Limits Rt Lower Leg: Within Normal Limits Lt Foot: Visualized Rt Foot: Visualized Other Umbilical Cord: 3 vessel cord Genitalia: Female CERVIX UTERUS ADNEXA: Right Ovary Size(cm) 4.8 x 2.6 x 2.1 Vol(ml): 13.7 Visualized Left Ovary Size(cm) 3.3 x 2.3 x 1.7 Vol(ml): 6.8 Visualized IMPRESSION 2nd Trimester - Detailed Morphology - Summary Single intrauterine with a gestational age of 20w 5d based on LMP (10/29/21) Composite age based on the current ultrasound alone is 19w 5d. Current growth parameters are consistent with prior dating indicating normal growth. Amniotic fluid volume is subjectively normal. Detailed anatomic evaluation was performed and no structural abnormalities are noted. Thank you for letting us participate in the care of this patient. If you are a health care provider and have any questions regarding this report, please contact the number above. For patients who have questions, please contact the health pharmacy care coordinator that requested your imaging first. Eva Lawson, Group Home Manager Electronically Signed Final Report 03/23/2022 03:26 pm Marbella Musa CNM [facility] OB ORDERABLES documented in this encounter Visit Diagnoses Diagnosis Family history of congenital anomalies , unspecified gestational age Irritable bowel syndrome complicating , second trimester documented in this encounter Care Teams Early Morning Babysitter Relationship Specialty Start Date End Date Unknown None PCP - General 02/20/22 documented as of this encounter
--- OUTSIDE RECORDS SUMMARY | 2024-02-27 17:44 | XMS_ITS | Encounter Summary ---
Author Organization [facility] [place] [address] Care Team Providers Care Communications Tower Technician Name Role Phone Carito Brown APRN Primary Care Provider [phone]- [phone] Reason for Visit * Reason Comments Abdominal Pain Constipation Encounter Details Date Type Department Care Team (Latest Contact Info) Description 12/28/2012 9:30 AM EDT Office Visit Pediatric [place] [address] Kim Hoover MD [facility] [place] [address] Constipation (Primary Dx) Discharge Disposition: Home Social History Tobacco Use [...] Sign Reading Time Taken Comments Blood Pressure 116/62 12/28/2012 9:24 AM EDT Pulse - - Temperature - - Respiratory Rate - - Oxygen Saturation - - Inhaled Oxygen Concentration - - Weight 62.9 kg (138 lb 9.6 oz) 12/28/2012 9:24 A M EDT Height 164 cm (5' 4.57) 12/28/2012 9:24 AM EDT Body Mass Index 23.37 12/28/2012 9:24 AM EDT Body Mass Index Percentile 76.51% 12/28/2012 9:2 4 AM EDT Growth Chart: CDC (Girls, 2- 20 Years) documented in this encounter Progress Notes * Kim Hoover MD - 12/28/2012 12:50 PM EDT I saw Nayeli Wright with her mother on December 28 at the request of Carito Brown for abdominal pain and constipation. Nayeli is 16 1/2 years old. She had hard stools as a baby. Took Hina and used glycerin suppositories. She developed some large diameter stools and stool holding, never soiling. As a younger child she passed hard infrequent stools. For about the past six months she has had more trouble with constipation and abdominal pain. She did a cleanout of five caps of MiraLAX 1 or 2 days-cannot remember for sure. She did pass some. looser stools and then started taking three to four caps of miralax per day. Her stools are not much better. She will have lower abdominal cramping several times per day randomly. She will go to the toilet and push, often just a small amount of small diameter stools comes out. She does not think it is enough. She can sit and push 15 or 20 minutes sometimes without great results. Does not have blood. Before she started the MiraLAX, she was having rectal pain but not much now. She did try senna and her abdominal cramps were worse. Stools were no different from MiraLAX. Review of Systems: Frequent urinary tract infections in the past. Frequent vaginal yeast infections. [place] a bit tired for a year. She feels unwell in the mornings even if she sleeps in late. Vague headaches and nausea, abdominal cramping. She did miss some school with this. Would go back to school once she felt better. No weight loss, fevers, arthralgias, mouth sores. Rest neg Diet: She eats vegetables and some fruits. No milk but has 16 ounces of soy milk. No soda or excess juice. September 2012 had a CBC. Hematocrit was 35.8, just slightly low for age. MCV 88. Normal platelets and sed rate. Normal CMP. Normal TSH. Negative TTG, both IgA and IgG. Socially, will be in eleventh grade. Has siblings and a boyfriend who came to the visit. Does not think stress is a major factor. Family History: Maternal uncle with ulcerative colitis. Mother with gallstones. Sister with lactose intolerance. On exam, she appeared healthy. Blood pressure normal. Weight 80th percentile. Height 60th percentile. Normal gait. Pupils reactive. Normal fundi. Normal thyroid. No lymphadenopathy nor mouth sores. Heart normal sounds. Lungs clear. Abdomen, no pain, mass, or organomegaly. Anus was normal. I did a KUB and there was stool in the rectum and stool in the left colon. Nayeli by history had slow transit as a young . Most outgrow this. Nayeli probably did not because she is taking a large amount of MiraLAX and still having formed stools. She probably also has a dilated rectum that does not push well. I do not know if her stomach pain is just due to constipation or not. Labs do not suggest Crohn's and constipation would be rare for that and celiac was negative. We are going to do a cleanout with either two bottles of mag citrate a day or eight caps of MiraLAX a day for three days in a row. She will then take two bisacodyl tablets in the morning and three caps of MiraLAX. She needs to note if she gets cramping and how good the stool is. If it is very, very watery, she will cut back the MiraLAX. We will call in about ten days to check on her progress. Mother's work number, . Cell is [phone]. documented in this encounter Plan of Treatment Not on file documented as of this encounter Results * XR abdomen 1 [...] within the rectal vault. ??There are 5 [id number]-dtdcqad lumbar type vertebral bodies in the right [...] material within therectal vault. There are 5 ypb-wpw-[id number] lumbar type vertebral bodies in theright and [...] Visit Diagnoses Diagnosis Constipation- Primary Unspecified constipation Constipation Unspecified constipation documented in this encounter Care Teams Communications Tower Technician Relationship Specialty Start Date End Date Carito Brown, ORCHID TRANSPLANTER [address] [facility] [place] [address] PCP - General 11/13/12 01/24/22 documented as of this encounter
--- OUTSIDE RECORDS SUMMARY | 2024-02-27 17:44 | XMS_ITS | Encounter Summary ---
[place] [address] Care Team Providers Care Manager Furniture Name Role Phone Unknown Primary Care Provider Unavailabl e Reason for Visit * Reason Comments Family History Cleft lip * Consultation (Routine) - Closed Specialty Diagnoses / Procedures Referred By Kt jj Referred To Contact Obstetrics and Gynecology Diagnoses Family history of other congenital malformations, deformations and chromosomal abnormalities Encounter for supervision of normal , unspecified, unspecified trimester Irritable bowel syndrome, unspecified Marbella Musa[address] [place] [address] [facility] [address] [place] [address] Referral ID Status Reason Start Date Expiration Date V isits Requested Visits Authorized [id number] Closed Consult, Test & Treat PCP Updated and/or Approved 01/25/2022 01/25/2023 2 2 Encounter Details Date Type Department Care Team ([facility] Contact Info) Description 03/23/2022 1:00 PM EDT Office Visit Obstetrics [place] [address] Walter Leigh, [facility] OBSTETRICS & [place] [address] Encounter for procreative genetic counseling Social History Tobacco Use Types Packs/Day Years Used Date Smoking Tobacco: Passive Smo ke Exposure - Never Smoker Smokeless Tobacco: Never Comments:Mom smokes outside Comments Yes Sex and Gender Information Value Date Recorded Sex Assigned at Not on file Gender Identity Not on file Sexual Orientation Not on file documented as of this encounter Progress Notes * Walter Leigh, [facility] - 03/23/2022 1:00 PM EDT Reproductive Genetics Nayeli Wright is a 26 y.o. female currently at 20w5d gestation. I met with Nayeli for a 50-minute office visit at the [facility] campus. She was accompanied by her partner, Abdelrahman. Referring Provider: Marbella Musa CNM [address] [place] [address] [place] [address] Chief Concern Patient presents with ??? Family History Cleft lip Patient History Past Medical History: Diagnosis Date ??? ADHD ??? Depression ??? Irritable bowel syndrome with constipation Ancestry: Bengali, Omani Partner History Name: Abdelrahman Sam : 1995 Sex: Male Medical History: Cleft lip Ancestry: [place] Family History Family History Problem (# of Occurrences) Relation (Name,Age of Onset) Alcohol Use Disorder (1) Mother Depression (1) Mother Suicide (1) Mother ?? Developmental or intellectual disability: No ?? Congenital anomalies: Yes, cleft lip & palate (Abdelrahman's brother) ?? Recurrent loss or stillbirth: Yes, Abdelrahman's mother had four miscarriages, Nayeli's mother had 1-2 miscarriages ?? Known genetic conditions: No ?? Consanguinity: No OB History # Outcome Date GA Lbr To/2nd Weight Sex Delivery Anes PTL Lv 2 Current 1 IAB 02/2021 Patient's last menstrual period was 10/29/2021 (exact date). Ultrasound 12/30/2022: Predicted GA 8w6d by CRL. Estimated Date of Delivery: 08/05/2022 based on menstrual dating. Genetic Screening Results Test Result ??? Panorama screen (01/22/2022) Low risk, female ??? Cystic fibrosis carrier screen (01/22/2022) One copy of the 5T allele was detected (5T/7T). No additional variants tested by this assay were detected. ??? Spinal muscular atrophy carrier screen Declined 03/23/2022 ??? Otilio-Sachs carrier screen Declined 03/23/2022 ??? Thalassemia carrier screen (01/22/2022) Within normal limits (MCV 92 fL) Assessment 1. Family history, cleft lip: Cleft lip (with or without cleft palate) is genetically distinct fromisolated cleft palate. Cleft lip is a clinically heterogeneous condition and may occur in isolationor as part of a syndrome. 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 Most instances of isolated cleft lip follow a multifactorial model of inheritance. The empiric recurrence risk to first-degree relatives is 4%. The risk may be higher in the setting of multiple affected relatives. Preconception and first-trimester folic acid supplementation may help to reduce the incidence of a facial cleft. 2. Cystic fibrosis carrier: Nayeli's cystic fibrosis carrier screen was positive for one copy of the5T allele. Within intron 9 of the CFTR gene, there is a variable sequence of five, seven, or nine thymidine bases, known as the polythymidine (poly-T) tract. A shorter poly-T tract (5T) is associatedwith less effective exon 10 splicing. Expression is further modified by a nearby TG tract, but this variant was not assessed by Nayeli's test. The 5T allele may act as a pathogenic (disease-causing)variant. If a 5T allele is inherited along with a pathogenic variant in the second copy of the CFTRgene, then there may be a risk for cystic fibrosis or CFTR-related disorders. Abdelrahman's chance of being a carrier is 1 in 25 (4%), and the couple's chance of having a child with a CFTR- related disorderis up to 1 in 100 (1%). We reviewed the option of cystic fibrosis carrier screening for Abdelrahman, as well as the option of additional carrier screening for Nayeli to provide details regarding her TG tract length. I explained how this information could facilitate prompt and accurate diagnosis and appropriate treatment. I made them aware of cystic fibrosis screening; however, children with CFTR-related disorders are unlikely to be detected by this approach. Plan ?? Detailed morphology ultrasound and maternal- medicine consultation today as scheduled. ?? Nayeli and Abdelrahman declined additional cystic fibrosis carrier screening today. If they desire thistesting in the future, then they should be request a follow- up genetic counseling appointment. We would recommend full-gene analysis (e.g., sequencing and deletion/duplication analysis using next-generation sequencing technology) and could help with financial considerations. documented in this encounter Plan of Treatment Scheduled Referrals Name Type Priority Associated Diagnoses Orde r Schedule Referral to Maternal Medicine Outpatient Referral Routine Family history of congenital anomalies Ordered: 01/25/2022 documented as of this encounter Visit Diagnoses Diagnosis Encounter for procreative genetic counseling documented in this encounter Care Teams Manager Furniture Relationship Specialty Start Date End Date Unknown None PCP - General 02/20/22 documented as of this encounter
--- OUTSIDE RECORDS SUMMARY | 2024-02-27 17:44 | XMS_ITS | Encounter Summary ---
Author Organization [facility] Address [address] [place] [address] Care Team Providers Care Tower Excavator Operator Name Role Phone Unavailable Primary Care Provider Unavailabl e Encounter Details Date Type Department Care Team (Late st Contact Info) Description 01/22/2022 Lab Requisition [facility] Pathology & Laboratory Medicine - [facility] [address] [place] [address] Outr Resulting Lab, Provider Social History Tobacco [...] Procedure Name Priority Date/Time Associated Diagnosis Comments HIV 1/2 ANTIGEN AND ANTIBODY, 4TH GENERATION Routine 01/22/2022 10:36 EDT documented in this encounter Results * HIV 1/2 ANTIGEN AND ANTIBODY, 4TH GENERATION (01/22/2022 10:36 EDT) HIV 1 and 2 Antibody/p24 Antigen, 4th Generation Negative Negative 01/23/2022 9:[address] [facility] Comment:If acute HIV-1 infec tion is suspected in a high risk patient, submit plasma specimen for HIV-1 RNA quantitation test. Blood VENOUS BLOOD / Unknown 01/22/2022 10:36 EDT 01/22/2022 17:[address] [facility] - 01/23/2022 9:19 EDT Fourth Generation assay performed on the Siemens Centaur XPT. Provider Outr Resulting Lab IMMUNOLOGY A ND SEROLOGY ORDERABLES [facility] [address] [place] [address] documented in this encounter Visit Diagnoses Not on filedocumented in this encounter
--- OUTSIDE RECORDS SUMMARY | 2024-02-27 17:44 | XMS_ITS | Encounter Summary ---
[place] [address] Care Team Providers Care Domestic Freight Forwarder Name Role Phone Unknown Primary Care Provider Unavailabl e Encounter Details Date Type Department Care Team (Latest Contact Info) Description 03/23/2022 Travel Social History Tobacco Use Types Packs/Day Years [...] on filedocumented in this encounter Care Teams Domestic Freight Forwarder Relationship Specialty Start Date End Date Unknown None PCP - General 02/20/22 documented as of this encounter
--- OUTSIDE RECORDS SUMMARY | 2024-02-27 17:44 | XMS_ITS | Referral Summary ---
Author Organization [facility] Address [address] [place] [address] Care Team Providers Care Counter Server Name Role Phone Unavailable Primary Care Provider Unavailabl e Social History Tobacco Use Types Packs/Day Years Used Date Smoking Tobacco: Never Assessed Sex and Gender Information Value Date Recorded Sex Assigned at Not on file Gender Identity Not on file Sexual Orientation Not on file Plan of Treatment Not on file Procedures Procedure Name Priority Date/Time Associated Diagnosis Comments HEPATITIS C AB W REFLEX TO HCV RNA BY PCR Routine 01/22/2022 10:36 EDT from Last 3 Months or Most Recently Relevant to Health Maintenance Results * HEPATITIS C AB W REFLEX TO HCV RNA BY PCR (01/22/2022 10:36 EDT) Hep C Antibody Negative Negative 01/25/2022 10:47 EDT [facility] Blood VENOUS BLOOD / Unknown 01/22/2022 10:36 EDT 01/22/2022 17:36 EDT Provider Outr Resulting Lab CHEMISTRY & BLOOD GAS ORDERABLES [facility] [address] [place] [address] from Last 3 Months or Most Recently Relevant to Health Maintenance
--- OUTSIDE RECORDS SUMMARY | 2024-02-27 17:44 | XMS_ITS | Encounter Summary ---
Author Organization [facility] Address [address] [place] [address] Care Team Providers Care Associate Financial Analyst Name Role Phone Unavailable Primary Care Provider Unavailabl e Encounter Details Date Type Department Care Team (Late st Contact Info) Description 03/25/2022 Lab Requisition [facility] Pathology & Laboratory Medicine - [facility] [address] [place] [address] Outr Resulting Lab, Provider Social History Tobacco [...] Comments CHLAMYDIA/N. GONORRHOEAE AMPLIFIED NUCLEIC ACID Routine 03/24/2022 15:30 EDT documented in this encounter Results * CHLAMYDIA/N. GONORRHOEAE AMPLIFIED RNA (03/24/2022 15:30 EDT) Neisseria gonorrhoeae Result Negative Negative 03/26/2022 15:58 EDT [facility] Chlamydia trachomatis Result Negative Negative 03/26/2022 15:58 EDT [facility] Swab ENTIRE ENDOCERVIX / Unknown 03/24/2022 15:30 EDT 03/25/2022 18:09 EDT Provider Outr Resulting Lab MICROBIOLOGY - GENERAL ORDERABLES [facility] [address] [place] [address] documented in this encounter Visit Diagnoses Not on filedocumented in this encounter
[2024-02-27 17:59] LABS: Abs Immature Grans 0.06 10^3/uL (0.0-0.06); Absolute Lymphocyte Count 1.48 10^3/uL (1.2-3.4); Basophils % 0.2 %; Eosinophils % 0.4 %; HCT 40.3 % (36.0-46.0); HGB 13.6 g/dL (11.2-15.7); Immature Grans % 0.4 %; Lymphocytes % 9.2 %; MCH 31.3 pg (27.0-33.0); MCHC 33.7 % (32.0-36.0); MCV 93 fL (80-95); Monocytes % 6.5 %; Neutrophils % 83.3 %; RBC 4.34 10^6/uL (3.93-5.22); RDW 12.9 % (11.7-14.6); RDW-SD 44.3 fL; WBC 16.06 10^3/uL (4.4-10.8)
[2024-02-27 18:02] LABS: Absolute Basophil Count 0.03 10^3/uL (0.0-0.2); Absolute Eosinophil Count 0.06 10^3/uL (0.0-0.7); Absolute Monocyte Count 1.04 10^3/uL (0.1-0.8); Absolute Neutrophil Count 13.38 10^3/uL (1.2-6.7)
[2024-02-27 18:24] LABS: ALT 23 U/L (14-59); AST 20 U/L (15-37); Albumin 4.6 g/dL (3.4-5.0); Alkaline Phosphatase 50 U/L (46-116); Anion Gap 10.7 mmol/L (3-11); BUN 12 mg/dL (7-18); CO2 28.3 mmol/L (21.0-32.0); CREATININE 0.8 mg/dL (0.55-1.02); Calcium 9.5 mg/dL (8.5-10.1); Chloride 99 mmol/L (98-107); Glucose 96 mg/dL (74-106); HCG Quant, Pregnancy 140 mIU/mL (1-3); Lipase 32 U/L (16-77); Potassium 3.5 mmol/L (3.5-5.1); Sodium 138 mmol/L (136-145); Total Protein 8.2 g/dL (6.4-8.2)
--- NOTE | 2024-02-27 18:27 | W.EDPROG ---
Date of service: 02/27/24 Time of Service: 18:27 Medical Decision Making Asked to perform POCUS exam. POCUS exam is as documented. Quality:SDOH Health Related Social Needs: No Data to Display Discharge Plan Discharge Details Chief Complaint: Abd Prob Primary Care Provider: Shani Gomez ED Provider: Kristina Robles Home Meds and New Rx's Prescriptions: No Action salicylic acid 40 % plaster 1 applic topical Q2D PRN (Reason: callus removal) Qty: 18 0RF magnesium 250 mg tablet 250 mg PO DAILY PRN PNV,calcium 84-gter-kbola acid 27 mg iron- 1 mg tablet 1 tab PO DAILY Qty: 90 4RF Rx Instructions: give with food (meal/snack) polyethylene glycol 3350 [Miralax] 17 gram/dose powder 17 g PO DAILY PRN (Reason: constipation) Qty: 510 4RF POCUS Exam (ED) Limited OB Exam DATE OF EXAM:: 02/27/24 TIME OF EXAM:: 18:28 PROVIDER THAT PERFORMED THE STUDY: Suresh Ashley IS THIS A REPEAT EXAM DURING THIS ENCOUNTER: No Type of Exam: Pelvic OB Trans Abdominal REASON FOR EXAM: Abdominal Pain VISUALIZED STRUCTURES: Right adnexa, Left adnexa and Uterus PERTINENT FINDINGS/IMPRESSION: No cardiac activity and No free fluid Exam Complete. DIFFERENTAL DIAGNOSES: Was unable to completely visualize pole. No free fluid was noted in the right renal or left perisplenic space.
[2024-02-27] MEDS: Lactated Ringers 1,000 ML 1000 ML IV (18:57)
[2024-02-27] MEDS: Acetaminophen 325 MG TAB 650 MG PO (18:57)
--- NOTE | 2024-02-27 19:30 | DI.US_ITS ---
Exam(s) US OB 1ST TRIMESTER EXAM: US OB 1ST TRIMESTER CLINICAL HISTORY: abdominal pain, concern for ectopic . COMPARISON: US POCUS EXAM from 02/27/2024 TECHNIQUE: Transabdominal Transvaginal first trimester obstetrical ultrasound performed. FINDINGS: A small amount of free fluid identified in the cul-de-sac. Pelvic Measurments Uterus: 9.4 x 5.1 x 6.4 cm Endometrial stripe measures 10 millimeters. No intrauterine gestational sac. Rt Ovary: 2 centimeter corpus luteum cyst versus ectopic . Lt Ovary: Normal appearance. IMPRESSION: No evidence of intrauterine gestational sac. 2 centimeter complex cystic area on the right ovary lik beverley a corpus luteum cyst, however ectopic is not entirely excluded. DATA REPOSITORY:
[2024-02-27] MEDS: Na Phosphate Enema-Adult 133 ML BTL PR (20:18)
--- NOTE | 2024-02-27 20:33 | NUR.NOTE ---
Nursing Note: pt had a lot of watery stool with a couple little hard kernels. She states she is starting to feel better than she did when she got here.
--- NOTE | 2024-02-27 20:36 | DI.VRAD_ITS ---
Addendum created by Chance Xiao MD on 02/27/2024 8:56:05 PM EDT: THIS REPORT CONTAINS FINDINGS THAT MAY BE CRITICAL TO PATIENT CARE. The findings were verbally communicated by me to [place] via telephone conference at 8:55 PM EDT on 02/27/2024. The findings were acknowledged and understood. Initial report created on 02/27/2024 8:35:37 PM EDT: PROCEDURE INFORMATION: Exam: US First Trimester, Transabdominal Exam date and time: 02/27/2024 7:30 PM Age: 28 years old Clinical indication: complicated by abdominal or pelvic pain; Epigastric; First trimester (<14 weeks 0 days); Gestational age or lmp: 5w, 2d; LABS AND CLINICAL REPORTS: Choriogonadotropin in serum (Serum HCG): 104 mIU/mL TECHNIQUE: Imaging protocol: Real-time transabdominal obstetrical ultrasound of the maternal pelvis and a first trimester , less than 14 weeks 0 days, with image documentation. COMPARISON: US OB MICHAEL WEIGHT 06/16/2022 8:00 AM FINDINGS: MATERNAL: Uterus: The uterus measures 9.4 cm in length. There is no sign of intrauterine gestational sac. Cervix: Unremarkable. Endocervical canal is closed. Right ovary/adnexa: The right ovary measures 3.8 cm. Within the ovary there is a mixed echotexture 2 cm nonvascular cystic mass. Left ovary/adnexa: The left ovary measures 3.3 cm with normal vascular flow and no cyst or mass. Few small follicles. Intraperitoneal space: Moderate amount of free fluid in the pelvis. IMPRESSION: No evidence of intrauterine . There is a 2 cm complex cystic mass in the right adnexa. Cannot exclude ectopic . Dictated and Authenticated by: Chance Xiao MD. Ordering:ELISA Acevedo MD
== END 2024-02-27 21:07 | disposition home or self-care (01) ==
PROVIDERS: Emergency Provider Nurse Practitioner Family; PCP Nurse Practitioner Family
DX: K59.00 Constipation, unspecified (principal); F17.200 Nicotine dependence, unspecified, uncomplicated
CPT/HCPCS: 00123; 36415; 76815; 80053; 83690; 86850; 86900; 86901; 96360; 99284; 76801; 84702; 85025

== ENCOUNTER 2024-02-29 11:54 | Outpatient (CLI) | payer BC, MEDICAID, SELFPAY ==
--- OUTSIDE RECORDS SUMMARY | 2024-02-29 12:01 | XMS_ITS | Encounter Summary ---
[place] [address] Care Team Providers Care Customer Facilities Supervisor Name Role Phone Unknown Primary Care [...] on filedocumented in this encounter Care Teams Customer Facilities Supervisor Relationship Specialty Start Date End Date Unknown None PCP - General 02/20/22 documented as of this encounter
--- OUTSIDE RECORDS SUMMARY | 2024-02-29 12:01 | XMS_ITS | Encounter Summary ---
Author Organization [facility] [place] [address] Care Team Providers Care Midwife Name Role Phone Carito Brown APRN Primary Care Provider [phone]- [phone] Encounter Details Date Type Department Care Team (Late st Contact Info) Description 03/19/2013 External Results XRay at [address] [place] [address] Provider, Scanning Social History Tobacco Use Types [...] on filedocumented in this encounter Care Teams Midwife Relationship Specialty Start Date End Date Carito Brown APRN [address] [place] [address] PCP - General 11/13/12 01/24/22 documented as of this encounter
--- OUTSIDE RECORDS SUMMARY | 2024-02-29 12:01 | XMS_ITS | Clinical Summary ---
Author Organization [facility] Address [facility] [place] [address] Care Team Providers Care Tree Fruit And Nut Crops Farmer Name Role Phone Unknown Primary Care Provider [...] - Influenza standard series) 01/29/2024 Care Teams Tree Fruit And Nut Crops Farmer Relationship Specialty Start Date End Date Unknown None PCP - General 02/20/22
--- OUTSIDE RECORDS SUMMARY | 2024-02-29 12:01 | XMS_ITS | Encounter Summary ---
Author Organization [facility] [place] [address] Care Team Providers Care Frame Maker Name Role Phone Kevin Carito Bryant APRN Primary Care Provider +1- [phone] Reason for Visit * Reason Onset Date Comments Constipation 01/18/2013 Encounter Details Date Type Department Care Team (Late st Contact Info) Description 01/18/2013 Telephone Pediatric [place] [address] Kim Hoover MD [facility] [place] [address] Constipation Social History Tobacco Use Types Packs/Day [...] on filedocumented in this encounter Care Teams Frame Maker Relationship Specialty Start Date End Date Carito Brown, MORTISING MACHINE OPERATOR [address] [place] [address] PCP - General 11/13/12 01/24/22 documented as of this encounter
--- OUTSIDE RECORDS SUMMARY | 2024-02-29 12:01 | XMS_ITS | Encounter Summary ---
[place] [address] Care Team Providers Care Inspector Electromechanical Name Role Phone Luiza Cole APRN Primary Care Provider [phone] Reason for Referral * Consultation (Routine) - Closed Specialty Diagnoses / Procedures Referred By Kt t Referred To Contact Obstetrics and Gynecology Diagnoses Family history of other congenital malformations, deformations and chromosomal abnormalities Encounter for supervision of normal , unspecified, unspecified trimester Irritable bowel syndrome, unspecified Marbella Musa CNM [address] [place] [address] [address] [place] [address] [facility] Bridge Club Manager [address] [place] [id number] Referral ID Status Reason Start Date Expiration Date V isits Requested Visits Authorized [id number] Closed Consult, Test & Treat PCP Updated and/or Approved 01/25/2022 01/25/2023 2 2 Encounter Details Date Type Department Care Team (Late st Contact Info) Description 01/25/2022 Transcribe Orders eDH Incoming Referrals [phone] Marbella Musa CNM [address] [place] [address] [address] [place], [place] [id number] Family history of congenital anomalies Social History [...] anomalies documented in this encounter Care Teams Inspector Electromechanical Relationship Specialty Start Date End Date Luiza Cole APRN [address] [place] [address] [address] [place] [address] PCP - General Family Medicine 01/25/22 02/19/22 documented as of this encounter
--- OUTSIDE RECORDS SUMMARY | 2024-02-29 12:01 | XMS_ITS | Encounter Summary ---
Author Organization [facility] [place] [address] Care Team Providers Care Streetcar Conductor Name Role Phone Unknown Primary Care Provider Unavailabl e Reason for Visit * Reason Comments Ultrasound Encounter Details Date Type Department Care Team (Late st Contact Info) Description 03/23/2022 3:00 PM EDT Office Visit Obstetrics [place] [address] Eva Lawson MD [facility] DR OBSTETRICS [place] [address] Family history of defect Social History Tobacco [...] evaluation and genetic counseling with [facility]. The patient reports that this has been [...] a significantly increased genetic risk. Meds: (PNV,calcium 22-tbbn-gqtjk acid), aspirin EC, bisacodyl EC, docusate sodium, [...] anomalies documented in this encounter Care Teams Streetcar Conductor Relationship Specialty Start Date End Date Unknown None PCP - General 02/20/22 documented as of this encounter
--- OUTSIDE RECORDS SUMMARY | 2024-02-29 12:01 | XMS_ITS | Clinical Summary ---
Author Organization [facility] Address [address] [place] [address] Care Team Providers Care Communication Signals Intelligence Name Role Phone Unavailable Primary Care Provider [...] C Antibody Negative Negative 01/25/2022 10:47 EDT [facility] Blood VENOUS BLOOD / Unknown 01/22/2022 10:36 EDT 01/22/2022 17:36 EDT Provider Outr Resulting Lab CHEMISTRY & BLOOD GAS ORDERABLES [facility] [address] [place] [address] from Last 3 Months or Most Recently Relevant to Health Maintenance
--- OUTSIDE RECORDS SUMMARY | 2024-02-29 12:01 | XMS_ITS | Encounter Summary ---
[place] [address] Care Team Providers Care Agent Based Modeler Name Role Phone Unknown Primary Care Provider Unavailabl e Reason for Referral * Diagnostic Test (Routine) - Closed Specialty Diagnoses / Procedures Referred By Kt t Referred To Contact Radiology Diagnoses Family history of congenital anomalies , unspecified gestational age Irritable bowel syndrome complicating , second trimester Procedures US OB Detailed Morphology Marbella Musa CNM [address] [place] [address] [address] [place] [address] [place] [address] Referral ID Status Reason Start Date Expiration Date V isits Requested Visits Authorized [id number] Closed Specialty Service Requested 02/03/2022 08/04/2023 1 1 Reason for Visit * Diagnostic Test (Routine) - Closed Specialty Diagnoses / Procedures Referred By Contac t Referred To Contact Radiology Diagnoses Family history of congenital anomalies , unspecified gestational age Irritable bowel syndrome complicating , second trimester Procedures US OB Detailed Morphology Marbella Musa CNM [address] [place] [address] [address] [place] [address] [facility] [place] [address] Referral ID Status Reason Start Date Expiration Date V isits Requested Visits Authorized [id number] Closed Specialty Service Requested 02/03/2022 08/04/2023 1 1 Encounter Details Date Type Department Care Team (Latest Contact Info) Description 03/23/2022 12:50 PM EDT - 03/23/2022 11:59 PM EDT Hospital En[place] [address] Marbella Musa, [facility] [address] [place] [address] [address] [place] [address] Family history of congenital anomalies; , unspecified [...] who have questions, please contact the health career development specialist that requested your imaging first. ?Eva Lawson, Manufacturing Design Engineer Electronically Signed Final Report ?? 03/23/2022 03:26 pm Narrative 03/23/2022 3:27 PM EDT OBSTETRICS REPORT ?(Signed Final 03/23/2022 03:26 pm) PATIENT INFO: ID #: ? [id number] ?: ??[id number] (26 yrs)(F) Name: ? RANDEE WRIGHT ? Visit Date: 03/23/2022 02:24 pm PERFORMED BY: Performed By: ? Stephen LARES, ??Stephanie Attending: ?Lulu BASHIR, Eva Taylor Referred By: ?MARBELLA MUSA Location: ? [place] SERVICE(S) PROVIDED: [facility] - Detailed Morphology - [id number] ? [id number] INDICATIONS: 20 weeks gestation of ?Z3A.20 FOB [...] Arch: ? Visualized SVC: ? Visualized Cardiac Mikana: ?Visualized Diaphragm: ? Visualized 3 Vessel View: [...] 03/23/2022 03:26 pm) PATIENT INFO: ID #: [id number] : [id number] (26 yrs)(F) Name: RANDEE WRIGHT Visit Date: 03/23/2022 02:24 pm PERFORMED BY: Performed By: Stephanie Mitchell RDMS Attending: Eva Lawson MD Referred By: MARBELLA MUSA Location: [place] SERVICE(S) PROVIDED: [facility] - Detailed Morphology - [id number] INDICATIONS: 20 weeks gestation of Z3A.20 FOB [...] Visualized Ductal Arch: Visualized SVC: Visualized Cardiac Mikana: Visualized Diaphragm: Visualized 3 Vessel View: Visualized [...] who have questions, please contact the health career development specialist that requested your imaging first. Eva Lawson, Manufacturing Design Engineer Electronically Signed Final Report 03/23/2022 03:26 pm Marbella Musa CNM [facility] OB ORDERABLES documented in this encounter Visit Diagnoses Diagnosis Family history of congenital anomalies , unspecified gestational age Irritable bowel syndrome complicating , second trimester documented in this encounter Care Teams Agent Based Modeler Relationship Specialty Start Date End Date Unknown None PCP - General 02/20/22 documented as of this encounter
--- OUTSIDE RECORDS SUMMARY | 2024-02-29 12:01 | XMS_ITS | Encounter Summary ---
Author Organization [facility] Address [address] [place] [address] Care Team Providers Care Photography Teacher Name Role Phone Unavailable Primary Care Provider Unavailabl e Encounter Details Date Type Department Care Team (Late st Contact Info) Description 02/25/2022 Lab Requisition [facility] Pathology & Laboratory Medicine - [facility] [address] [place] [address] Outr Resulting Lab, Provider Social History Tobacco [...] gonorrhoeae Result Negative Negative 02/26/2022 15:08 EDT [facility] Chlamydia trachomatis Result Positive(A) Negative 02/26/2022 15:08 EDT [facility] Urine URINE / Unknown 02/24/2022 1 5:05 EDT 02/25/2022 19:03 EDT Narrative [facility] - 02/26/2022 15:08 EDT A first catch urine specimen is acceptable for detection of Gonorrhea and Chlamydia, but might detect up to 10% fewer infections when compared with vaginal and endocervical swab samples. Provider Outr Resulting Lab MICROBIOLOGY - GENERAL ORDERABLES [facility] [address] [place] [address] documented in this encounter Visit Diagnoses Not on filedocumented in this encounter
--- OUTSIDE RECORDS SUMMARY | 2024-02-29 12:01 | XMS_ITS | Encounter Summary ---
Author Organization [facility] [place] [address] Care Team Providers Care Block Sorter Name Role Phone Carito Brown RUBBER ENGRAVER Primary Care Provider +1- [phone] Encounter Details Date Type Department Care Team (Late st Contact Info) Description 03/25/2013 Telephone Pediatric [place] [address] Kim Hoover MD [facility] [place] [address] Social History Tobacco Use Types Packs/Day Years [...] on filedocumented in this encounter Care Teams Block Sorter Relationship Specialty Start Date End Date Carito Brown, RUBBER ENGRAVER [address] [place] [address] PCP - General 11/13/12 01/24/22 documented as of this encounter
--- OUTSIDE RECORDS SUMMARY | 2024-02-29 12:01 | XMS_ITS | Referral Summary ---
Author Organization [facility] Address [address] [place] [address] Care Team Providers Care Unloader Name Role Phone Unavailable Primary Care Provider [...] C Antibody Negative Negative 01/25/2022 10:[address] [facility] Blood VENOUS BLOOD / Unknown 01/22/2022 10:36 EDT 01/22/2022 17:36 EDT Provider Outr Resulting Lab CHEMISTRY & BLOOD GAS ORDERABLES [facility] [address] [place] [address] from Last 3 Months or Most Recently Relevant to Health Maintenance
--- OUTSIDE RECORDS SUMMARY | 2024-02-29 12:01 | XMS_ITS | Encounter Summary ---
Author Organization [facility] Address [facility] [place] [address] Care Team Providers Care Hoop Flaring Machine Operator Helper Name Role Phone KevinCarito Annette HARRIS Primary Care Provider +1- [phone] Encounter Details Date Type Department Care Team (Late st Contact Info) Description 03/16/2013 Orders Only [place] [address] Kim Hoover MD [facility] DR PEDI[place] [address] Social History Tobacco Use Types Packs/Day Years [...] AM EDT) 03/16/2013 6:40 AM EDT Narrative [facility] - 01/23/2014 4:47 PM EDT This is a non-reportable exam. Procedure Note Andrew Dutton - 01/23/2014 This is a non-reportable exam. Kim Hoover MD [facility] FILM LIBRARY ORD ERABLES [facility] [address] [facility] [place] [address] documented in this encounter Visit Diagnoses Not on filedocumented in this encounter Care Teams Hoop Flaring Machine Operator Helper Relationship Specialty Start Date End Date Carito Brown, APPLICATIONS SUPPORT ANALYST [address] [place] [address] PCP - General 11/13/12 01/24/22 documented as of this encounter
--- OUTSIDE RECORDS SUMMARY | 2024-02-29 12:01 | XMS_ITS | Encounter Summary ---
Author Organization Formerly [facility] [place] [address] Care Team Providers Care Clinical Registered Nurse Name Role Phone Carito Brown APRN Primary Care Provider +1- [phone] Reason for Visit * Reason Comments Follow-up Encounter Details Date Type Department Care Team (Latest Contact Info) Description 03/13/2013 10:00 AM EDT Follow-Up [place] [address] Kim Hoover MD [facility] [place] [address] Constipation (Primary Dx); Weight loss Discharge Disposition: [...] Hoover MD CHEMISTRY ORDERABLES Performing Organization Address [facility] de Phone Number CERNER MILLENNIUM * Sedimentation rate (03/13/2013 11:00 AM EDT) Sedimentation Rate Automated 7 0 - 20 mm/hr CERNER MILLENNIUM Blood specimen (specimen) 03/13/2013 11:00 AM EDT 03/13/2013 11:06 AM EDT Narrative Resulting Agency Comment Spec In Lab Kim Hoover MD HEMATOLOGY ORDERABLE S Performing Organization Address [facility] de Phone Number CERJOYCE TAVARESIUM [...] Hoover MD CHEMISTRY ORDERABLES Performing Organization Address [facility] Co de Phone Number CERNER MILLENNIUM * [...] MD HEMATOLOGY ORDERABLE S Performing Organization Address City/[facility]/ZIP Co de Phone Number ISAC GAR documented in this encounter Visit Diagnoses Diagnosis Constipation- Primary Unspecified constipation Weight loss Loss of weight documented in this encounter Care Teams Clinical Registered Nurse Relationship Specialty Start Date End Date Carito Brown, ECHO TECHNOLOGIST [address] [place] [address] PCP - General 11/13/12 01/24/22 documented as of this encounter
--- OUTSIDE RECORDS SUMMARY | 2024-02-29 12:01 | XMS_ITS | Encounter Summary ---
Author Organization [facility] Address [address] [place] [address] Care Team Providers Care Business Strategist Name Role Phone Unavailable Primary Care Provider Unavailabl e Encounter Details Date Type Department Care Team (Late st Contact Info) Description 03/25/2022 Lab Requisition [facility] Pathology & Laboratory Medicine - [facility] [address] [place] [address] Outr Resulting Lab, Provider Social History Tobacco [...] gonorrhoeae Result Negative Negative 03/26/2022 15:58 EDT [facility] Chlamydia trachomatis Result Negative Negative 03/26/2022 15:58 EDT [facility] Swab ENTIRE ENDOCERVIX / Unknown 03/24/2022 15:30 EDT 03/25/2022 18:09 EDT Provider Outr Resulting Lab MICROBIOLOGY - GENERAL ORDERABLES [facility] [address] [place] [address] documented in this encounter Visit Diagnoses Not on filedocumented in this encounter
--- OUTSIDE RECORDS SUMMARY | 2024-02-29 12:01 | XMS_ITS | Encounter Summary ---
[place] [address] Care Team Providers Care Registered Massage Therapist Name Role Phone Unknown Primary Care Provider Unavailabl e Reason for Visit * Reason Comments Family History Cleft lip * Consultation (Routine) - Closed Specialty Diagnoses / Procedures Referred By Kt jj Referred To Contact Obstetrics and Gynecology Diagnoses Family history of other congenital malformations, deformations and chromosomal abnormalities Encounter for supervision of normal , unspecified, unspecified trimester Irritable bowel syndrome, unspecified Marbella Musa[address] [place] [address] [facility] Continuous [address] [place] [address] Referral ID Status Reason Start Date Expiration Date V isits Requested Visits Authorized [id number] Closed Consult, Test & Treat PCP Updated and/or Approved 01/25/2022 01/25/2023 2 2 Encounter Details Date Type Department Care Team ([facility] Contact Info) Description 03/23/2022 1:00 PM EDT Office Visit Obstetrics [place] [address] Walter Leigh, [facility] [place] [address] Encounter for procreative genetic counseling [...] this encounter Progress Notes * Walter Leigh, [facility] - 03/23/2022 1:00 PM EDT Reproductive Genetics Nayeli Wright is a 26 y.o. female currently at 20w5d gestation. I met with Nayeli for a 50-minute office visit at the [facility]. She was accompanied by her partner, Abdelrahman. Referring Provider: Marbella Musa CNM [address] [place] [address] [place] [address] Chief Concern Patient presents with ??? Family History Cleft lip Patient History Past Medical History: Diagnosis Date ??? ADHD ??? Depression ??? Irritable bowel syndrome with constipation Ancestry: Ana, Fijian Partner History Name: Abdelrahman Sam : 1995 Sex: Male Medical History: Cleft lip Ancestry: Citizen Of [place] Malaysian Family History Family History Problem (# of [...] counseling documented in this encounter Care Teams Registered Massage Therapist Relationship Specialty Start Date End Date Unknown None PCP - General 02/20/22 documented as of this encounter
--- OUTSIDE RECORDS SUMMARY | 2024-02-29 12:01 | XMS_ITS | Encounter Summary ---
Author Organization [facility] Address [address] [place] [address] Care Team Providers Care Account Manager Trainee Name Role Phone Unavailable Primary Care Provider Unavailabl e Encounter Details Date Type Department Care Team (Late st Contact Info) Description 01/22/2022 Lab Requisition [facility] Pathology & Laboratory Medicine - [facility] [address] [place] [address] Outr Resulting Lab, Provider Social History Tobacco [...] 10:36 EDT) Hold Hold 01/22/2022 18:45 EDT [facility] Blood VENOUS BLOOD / Unknown 01/22/2022 10:36 EDT 01/22/2022 17:37 EDT Provider Outr Resulting Lab LAB INFO SER VICE AND SUPPORT & PHONE RESULT [facility] [address] [place] [address] * HOLD SST (01/22/2022 10:36 EDT) Hold Hold 01/22/2022 18:45 EDT [facility] Blood VENOUS BLOOD / Unknown 01/22/2022 10:36 EDT 01/22/2022 17:37 EDT Provider Outr Resulting Lab LAB INFO SER VICE AND SUPPORT & PHONE RESULT Performing Organization Address City/[facility] Co de Phone Number [facility] [address] [place] [address] * VARICELLA IGG ANTIBODY (01/22/2022 10:36 EDT) Varicella IgG Ab Positive See Note 01/25/2022 10:08 EDT [facility] Comment:Presence of detectab le Varicella Zoster virus IgG antibodies. Blood VENOUS BLOOD / Unknown 01/22/2022 10:36 EDT 01/22/2022 17:36 EDT Provider Outr Resulting Lab IMMUNOLOGY A ND SEROLOGY ORDERABLES Performing Organization Address [facility]/ZIP Co de Phone Number [facility] [address] [place] [address] * RUBELLA IGG ANTIBODY (01/22/2022 10:36 EDT) Rubella IgG Ab Positive See Note 01/25/2022 10:09 EDT [facility] Comment:Positive for IgG ant ibodies to Rubella virus. Blood VENOUS BLOOD / Unknown 01/22/2022 10:36 EDT 01/22/2022 17:36 EDT Provider Outr Resulting Lab CHEMISTRY & BLOOD GAS ORDERABLES Performing Organization Address [facility] Co de Phone Number [facility] [address] [place] [address] documented in this encounter Visit Diagnoses Not on filedocumented in this encounter
--- OUTSIDE RECORDS SUMMARY | 2024-02-29 12:01 | XMS_ITS | Encounter Summary ---
Author Organization [facility] [place] [address] Care Team Providers Care Endocrinology Specialist Name Role Phone Carito Brown APRN Primary Care Provider +1- [phone] Encounter Details Date Type Department Care Team (Late st Contact Info) Description 03/18/2013 Telephone [place] [address] Kim Hoover MD [facility] [place] [address] Social History Tobacco Use Types Packs/Day Years [...] on filedocumented in this encounter Care Teams Endocrinology Specialist Relationship Specialty Start Date End Date Carito Brown APRN [address] [place] [address] PCP - General 11/13/12 01/24/22 documented as of this encounter
--- OUTSIDE RECORDS SUMMARY | 2024-02-29 12:01 | XMS_ITS | Encounter Summary ---
Author Organization [facility] [place] [address] Care Team Providers Care Mattress Stripper Name Role Phone Carito Brown APRN Primary Care Provider +1- [phone] Reason for Visit * Reason Comments Abdominal Pain Constipation Encounter Details Date Type Department Care Team (Latest Contact Info) Description 12/28/2012 9:30 AM EDT Office Visit Pediatric [place] [address] Kim Hoover MD [facility] [place] [address] Constipation (Primary Dx) Discharge Disposition: Home Social [...] in the past. Frequent vaginal yeast infections. [place] a bit tired for a year. She [...] progress. Mother's work number, . Cell is [phone]. documented in this encounter Plan of Treatment [...] within the rectal vault. ??There are 5 toj-czw-aocfjuz lumbar type vertebral bodies in the right [...] material within therectal vault. There are 5 yxd-rdn-xrizqac lumbar type vertebral bodies in theright and [...] constipation documented in this encounter Care Teams Mattress Stripper Relationship Specialty Start Date End Date Carito rBown, CARBURIZER [address] [facility] [address] PCP - General 11/13/12 01/24/22 documented as of this encounter
--- OUTSIDE RECORDS SUMMARY | 2024-02-29 12:01 | XMS_ITS | Encounter Summary ---
Author Organization [facility] Address [facility] [place] [address] Care Team Providers Care Crown Wheel Assembler Name Role Phone Carito Brown APRN Primary Care Provider +1- [phone] Encounter Details Date Type Department Care Team (Late st Contact Info) Description 12/28/2012 10:32 AM EDT - 12/28/2012 11:59 PM EDT Hospital Encounter XRay at [address] [place] [address] Constipation Social History Tobacco Use Types Packs/Day [...] within the rectal vault. ??There are 5 nil-kvm-yikxemp lumbar type vertebral bodies in the right [...] material within therectal vault. There are 5 dar-rtm-nelxgys lumbar type vertebral bodies in theright and [...] constipation documented in this encounter Care Teams Crown Wheel Assembler Relationship Specialty Start Date End Date Carito Brown, CAR ELECTRONICS INSTALLER [address] [place] [address] PCP - General 11/13/12 01/24/22 documented as of this encounter
--- OUTSIDE RECORDS SUMMARY | 2024-02-29 12:01 | XMS_ITS | Encounter Summary ---
Author Organization [facility] Address [address] [place] [address] Care Team Providers Care Machine Repairer Name Role Phone Unavailable Primary Care Provider Unavailabl e Encounter Details Date Type Department Care Team (Late st Contact Info) Description 01/22/2022 Lab Requisition [facility] Pathology & Laboratory Medicine - [facility] [address] [place] [address] Outr Resulting Lab, Provider Social History Tobacco [...] 4th Generation Negative Negative 01/23/2022 9:19 EDT [facility] Comment:If acute HIV-1 infec tion is suspected in a high risk patient, submit plasma specimen for HIV-1 RNA quantitation test. Blood VENOUS BLOOD / Unknown 01/22/2022 10:36 EDT 01/22/2022 17:36 EDT Narrative [facility] - 01/23/2022 9:19 EDT Fourth Generation assay performed on the Siemens Centaur XPT. Provider Outr Resulting Lab IMMUNOLOGY A ND SEROLOGY ORDERABLES [facility] [address] [place] [address] documented in this encounter Visit Diagnoses Not on filedocumented in this encounter
--- OUTSIDE RECORDS SUMMARY | 2024-02-29 12:01 | XMS_ITS | Encounter Summary ---
Author Organization [facility] Address [address] [place] [address] Care Team Providers Care Childcare Administrator Name Role Phone Unavailable Primary Care Provider Unavailabl e Encounter Details Date Type Department Care Team (Late st Contact Info) Description 01/22/2022 Lab Requisition [facility] Pathology & Laboratory Medicine - [facility] [address] [place] [address] Outr Resulting Lab, Provider Social History Tobacco [...] Surface Ag Negative Negative 01/25/2022 10:08 EDT [facility] Blood VENOUS BLOOD / Unknown 01/22/2022 10:36 EDT 01/22/2022 17:36 EDT Provider Outr Resulting Lab CHEMISTRY & BLOOD GAS ORDERABLES [facility] [address] [place] [address] * HEPATITIS C AB W REFLEX TO HCV RNA BY PCR (01/22/2022 10:36 EDT) Hep C Antibody Negative Negative 01/25/2022 10:47 EDT [facility] Blood VENOUS BLOOD / Unknown 01/22/2022 10:36 EDT 01/22/2022 17:36 EDT Provider Outr Resulting Lab CHEMISTRY & BLOOD GAS ORDERABLES [facility] [address] [place] [address] documented in this encounter Visit Diagnoses Not on filedocumented in this encounter
[2024-02-29 12:45] LABS: HCG Quant, Pregnancy 305 mIU/mL (1-3)
== END 2024-02-29 11:55 | disposition home or self-care (01) ==
LOC: LBO 12:00
PROVIDERS: PCP Nurse Practitioner Family; Visit Provider Obstetrics & Gynecology
DX: O26.851 Spotting complicating pregnancy, first trimester (principal); Z3A.01 Less than 8 weeks gestation of pregnancy
CPT/HCPCS: 36415; 84702

== ENCOUNTER 2024-03-08 02:31 | Outpatient (CLI) | payer BC, MEDICAID, SELFPAY ==
[2024-03-08 17:26] LABS: HCG Quant, Pregnancy 7981 mIU/mL (1-3)
== END 2024-03-08 02:32 | disposition home or self-care (01) ==
LOC: LBO 02:31
PROVIDERS: PCP Nurse Practitioner Family; Visit Provider Obstetrics & Gynecology
DX: O36.80X0 Pregnancy with inconclusive fetal viability, not applicable or unspecified (principal); O26.859 Spotting complicating pregnancy, unspecified trimester
CPT/HCPCS: 36415; 84702

== ENCOUNTER 2024-04-01 00:11 | Inpatient (IN) | payer MEDICAID, SELFPAY ==
[2024-04-01] VITALS (66 sets, daily range): BP systolic 91–128; BP diastolic 43–70; PULSE 66–83; RESP 16–18; TEMP 36.5–37; O2SAT 96–100
--- NOTE | 2024-04-01 00:16 | ED.GENADUL_ITS ---
Discharge Plan Disposition Condition: Stable Discharge Details Chief Complaint: Abd Prob Primary Care Provider: Shani Gomez ED Provider: Philippe Kessler and New Rx's Prescriptions: No Action salicylic acid 40 % plaster 1 applic topical Q2D PRN (Reason: callus removal) Qty: 18 0RF magnesium 250 mg tablet 250 mg PO DAILY PRN PNV,calcium 46-dxhp-kllxh acid 27 mg iron- 1 mg tablet 1 tab PO DAILY Qty: 90 4RF Rx Instructions: give with food (meal/snack) polyethylene glycol 3350 [Miralax] 17 gram/dose powder 17 g PO DAILY PRN (Reason: constipation) Qty: 510 4RF HPI General Mode of arrival: ambulatory . Date/Time Provider Initiated Documentation: 04/01/24 00:13 . Limitations to Documentation: no limitations . Information obtained by: patient, RN notes reviewed and old records reviewed . HPI Narrative: Patient presents to ED with complaint of generalized abdominal pain, nausea, vomiting. Patient is approximately 9 weeks . Since this morning she has not felt well but by this afternoon has had generalized abdominal pain, nausea and multiple episodes of vomiting. Denies any diarrhea and had a normal bowel movement just a couple of hours ago. Denies any back pain or urinary symptoms. Denies any vaginal bleeding or spotting. Denies any fever. Denies being around anyone ill. Had something a little similar to this about 4 weeks ago with resolution. Has not really been having significant problems with nausea and vomiting during this . Related Data Home Medications ?Medication ?Instructions ?Recorded ?Confirmed polyethylene glycol 3350 17 17 g PO DAILY PRN constipation 07/13/22 04/01/24 gram/dose oral powder (Miralax) #510 grams magnesium 250 mg tablet 250 mg PO DAILY PRN 01/16/24 04/01/24 vitamin with calcium 1 tab PO DAILY #90 tabs 01/16/24 04/01/24 no.72-iron 27 mg-folic acid 1 mg tablet salicylic acid 40 % topical plaster 1 applic topical Q2D PRN callus 02/02/24 04/01/24 removal #18 ea Previous Rx's ?Medication ?Instructions ?Recorded polyethylene glycol 3350 17 17 g PO DAILY PRN constipation 07/13/22 gram/dose oral powder (Miralax) #510 grams vitamin with calcium 1 tab PO DAILY #90 tabs 01/16/24 no.72-iron 27 mg-folic acid 1 mg tablet salicylic acid 40 % topical plaster 1 applic topical Q2D PRN callus 02/02/24 removal #18 ea Allergies Allergy/AdvReac Type Severity Reaction Status Date / Time hydrocodone (From Vicodin) AdvReac Nausea Verified 04/01/24 00:23 General SILVANA: 3 Review of Systems Narrative: Per HPI Exam Narrative Exam Narrative: Const: WDWN female in NAD. VS per triage. HEENT: NC/AT. Normal facial exam. Neck: Supple. Trachea midline. Lungs: Normal respiratory effort. Cor: RRR. Good radial pulses. GI: Soft/ND/NT. Neuro: A+O x 3. Normal speech, mentation, gait. Cranial nerves II - XII grossly intact. No gross motor or sensory deficit. Ext: No C/C/E. Medical Decision Making 28-year-old female who is approximately 9 weeks presenting with generalized abdominal pain, nausea and vomiting. She denies any diarrhea. Denies any pelvic pain or vaginal bleeding or spotting. Saw OB just a week ago with confirmed IUP by ultrasound. Has a benign abdomen at this time. Will place IV and give fluids, metoclopramide, acetaminophen, famotidine. Laboratory studies and urinalysis obtained and sent. Patient's laboratory studies significant for elevated white count and a slight anion gap. Urinalysis negative for infection but does have ketones. Patient does report nausea is much better. Still having pain. Repeat abdominal exam now shows tenderness with voluntary guarding in the right lower quadrant concerning for acute appendicitis. Patient will be made NPO. Will give D5 normal saline at 125 an hour and recheck abdomen in a couple of hours. 4:00 - Patient's exam is worse. Now tender with voluntary guarding and rebound. Will dose with ceftriaxone, keep NPO and discuss with surgery. 7:00 - Signed out to oncoming ED physician, Dr. Ashley, pending surgery evaluation. Lab Data Lab results reviewed: Yes I reviewed the patient's lab results. Lab results narrative: see [facility] Medical History Irritable bowel syndrome with constipation ADHD (attention deficit hyperactivity disorder) Major depressive disorder Surgical History No pertinent past surgical history Family History Mother , 37 from suicide Depression Father Asthma Brother No problems noted. Brother Asthma Sister No problems noted. Daughter No problems noted. Maternal Grandfather No problems noted. Maternal Grandmother Breast cancer x 3 Paternal Grandfather No problems noted. Paternal Grandmother No problems noted. Social History Smoking/Tobacco Use Status: Current-Occasional Tobacco: How many years used: 2 Second Hand Exposure: Yes Smoking risk assessment performed?: Yes Alcohol Intake: current Alcohol Intake frequency: a few times a week Alcohol type: wine Drug use: Never Substance use type: does not use Counseling provided: none Caregiver/Support person: No Household members: friend(s) Housing: house Communication Needs: Corrective Lenses Do you need help understanding health information?: Never Pets and animals: Yes Pets and animals: dog(s) Sexually active: Yes Do you think of yourself as: straight/heterosexual Current gender identity: female What is your relationship status?: never How often do you talk on the phone with friends or family?: once per week Do you belong to any clubs or organized social groups?: no Panel score (0-1 are the most socially isolated patients): 0 What type of physical activity do you participate in: walking Duration: > 90 minutes/day Frequency: 3-4 times per week Chantal/Congregational: None Special chantal needs: No Seatbelt use: always Helmet use: Yes Helmet use: always Drive intox or ride w/intox mixer driver: No Do you feel safe at home: Yes Do you feel safe in your relationship?: Yes Female Reproductive History Menstrual control method: none History History 3 Para 1 Hx # Term Pregnancies 1 Multiple births 0 Hx # Pregnancies 0 Ectopic pregnancies 0 AB induced 1 Hx Number of Living Children 1 AB spontaneous 0 Past Pregnancies Del. Date GA/Weeks # Preg Succ Route Wgt Sex Labor Lgth Anesth esia Location Prov Complic 02/27/21 10 No 08/18/22 41 No Yes vaginal 3599.822 g Female 24hrs 9min bebo Layton CNM Delivery Date: 02/27/21 Last Updated by: Marbella Musa Elective Ab Delivery Date: 08/18/22 Last Updated by: HARLAN Reyes
--- OUTSIDE RECORDS SUMMARY | 2024-04-01 00:18 | XMS_ITS | Encounter Summary ---
Author Organization [facility] [place] [address] Care Team Providers Care Plant Associate Name Role Phone Carito Brown APRN Primary Care Provider +1- [phone] Reason for Visit * Reason Comments Follow-up Encounter Details Date Type Department Care Team (Latest Contact Info) Description 03/13/2013 10:00 AM EDT Follow-Up [place] [address] Kim Hoover MD [facility] [place] [address] Constipation (Primary Dx); Weight loss Discharge Disposition: [...] Hoover MD CHEMISTRY ORDERABLES Performing Organization Address [facility] de Phone Number CERNER MILLENNIUM * Sedimentation rate (03/13/2013 11:00 AM EDT) Sedimentation Rate Automated 7 0 - 20 mm/hr CERNER MILLENNIUM Blood specimen (specimen) 03/13/2013 11:00 AM EDT 03/13/2013 11:06 AM EDT Narrative Resulting Agency Comment Spec In Lab Kim Hoover MD HEMATOLOGY ORDERABLE S Performing Organization Address [facility] de Phone Number CERJOYCE TAVARESIUM * High [...] Hoover MD CHEMISTRY ORDERABLES Performing Organization Address [facility] Co de Phone Number CERNER MILLENNIUM [...] MD HEMATOLOGY ORDERABLE S Performing Organization Address City/[facility]/ZIP Co de Phone Number ISCA GAR documented in this encounter Visit Diagnoses Diagnosis Constipation- Primary Unspecified constipation Weight loss Loss of weight documented in this encounter Care Teams Plant Associate Relationship Specialty Start Date End Date Carito Brown, TUBE CUTTER OPERATOR [address] [place] [address] PCP - General 11/13/12 01/24/22 documented as of this encounter
--- OUTSIDE RECORDS SUMMARY | 2024-04-01 00:18 | XMS_ITS | Encounter Summary ---
Author Organization [facility] [place] [address] Care Team Providers Care Buffing Wheel Former Automatic Name Role Phone Carito Brown APRN Primary Care Provider +1- [phone] Reason for Visit * Reason Comments Abdominal Pain Constipation Encounter Details Date Type Department Care Team (Latest Contact Info) Description 12/28/2012 9:30 AM EDT Office Visit Pediatric [place] [address] Kim Hoover MD [facility] [place] [address] Constipation (Primary Dx) Discharge Disposition: Home Social [...] in the past. Frequent vaginal yeast infections. [place] a bit tired for a year. She [...] history had slow transit as a young infant. Most outgrow this. Nayeli probably did not [...] progress. Mother's work number, . Cell is [phone]. documented in this encounter Plan of Treatment [...] within the rectal vault. ??There are 5 hkb-aey-fsuycwn lumbar type vertebral bodies in the right [...] material within therectal vault. There are 5 vdy-ymy-mpjsxvb lumbar type vertebral bodies in theright and [...] constipation documented in this encounter Care Teams Buffing Wheel Former Automatic Relationship Specialty Start Date End Date Carito Brown, TOOL MACHINE SET UP OPERATOR [address] [facility] [place] [address] PCP - General 11/13/12 01/24/22 documented as of this encounter
--- OUTSIDE RECORDS SUMMARY | 2024-04-01 00:18 | XMS_ITS | Referral Summary ---
Author Organization [facility] Address [address] [place] [address] Care Team Providers Care Sheetfed Press Operator Name Role Phone Unavailable Primary Care [...] C Antibody Negative Negative 01/25/2022 10:47 EDT [facility] Blood VENOUS BLOOD / Unknown 01/22/2022 10:36 EDT 01/22/2022 17:36 EDT Provider Outr Resulting Lab CHEMISTRY & BLOOD GAS ORDERABLES [facility] [address] [place] [address] from Last 3 Months or Most Recently Relevant to Health Maintenance
--- OUTSIDE RECORDS SUMMARY | 2024-04-01 00:18 | XMS_ITS | Clinical Summary ---
Author Organization [facility] Address [address] [place] [address] Care Team Providers Care Cooperative Education Director Name Role Phone Unavailable Primary Care Provider [...] C Antibody Negative Negative 01/25/2022 10:47 EDT [facility] Blood VENOUS BLOOD / Unknown 01/22/2022 10:36 EDT 01/22/2022 17:36 EDT Provider Outr Resulting Lab CHEMISTRY & BLOOD GAS ORDERABLES [facility] [address] [place] [address] from Last 3 Months or Most Recently Relevant to Health Maintenance
--- OUTSIDE RECORDS SUMMARY | 2024-04-01 00:18 | XMS_ITS | Encounter Summary ---
Author Organization [facility] Address [address] [place] [address] Care Team Providers Care Network Planner Name Role Phone Unavailable Primary Care Provider Unavailabl e Encounter Details Date Type Department Care Team (Late st Contact Info) Description 01/22/2022 Lab Requisition [facility] Pathology & Laboratory Medicine - [facility] [address] [place] [address] Outr Resulting Lab, Provider Social History Tobacco [...] 10:36 EDT) Hold Hold 01/22/2022 18:45 EDT [facility] Blood VENOUS BLOOD / Unknown 01/22/2022 10:36 EDT 01/22/2022 17:37 EDT Provider Outr Resulting Lab LAB INFO SER VICE AND SUPPORT & PHONE RESULT [facility] [address] [place] [address] * HOLD SST (01/22/2022 10:36 EDT) Hold Hold 01/22/2022 18:45 EDT [facility] Blood VENOUS BLOOD / Unknown 01/22/2022 10:36 EDT 01/22/2022 17:37 EDT Provider Outr Resulting Lab LAB INFO SER VICE AND SUPPORT & PHONE RESULT Performing Organization Address City/[facility] Co de Phone Number [facility] [address] [place] [address] * VARICELLA IGG ANTIBODY (01/22/2022 10:36 EDT) Varicella IgG Ab Positive See Note 01/25/2022 10:08 EDT [facility] Comment:Presence of detectab le Varicella Zoster virus IgG antibodies. Blood VENOUS BLOOD / Unknown 01/22/2022 10:36 EDT 01/22/2022 17:36 EDT Provider Outr Resulting Lab IMMUNOLOGY A ND SEROLOGY ORDERABLES Performing Organization Address [facility]/ZIP Co de Phone Number [facility] [address] [place] [address] * RUBELLA IGG ANTIBODY (01/22/2022 10:36 EDT) Rubella IgG Ab Positive See Note 01/25/2022 10:09 EDT [facility] Comment:Positive for IgG ant ibodies to Rubella virus. Blood VENOUS BLOOD / Unknown 01/22/2022 10:36 EDT 01/22/2022 17:36 EDT Provider Outr Resulting Lab CHEMISTRY & BLOOD GAS ORDERABLES Performing Organization Address [facility] Co de Phone Number [facility] [address] [place] [address] documented in this encounter Visit Diagnoses Not on filedocumented in this encounter
--- OUTSIDE RECORDS SUMMARY | 2024-04-01 00:18 | XMS_ITS | Clinical Summary ---
Author Organization [facility] Address [facility] [place] [address] Care Team Providers Care Director Of Event Marketing Name Role Phone Unknown Primary Care Provider Unavailabl e Allergies No known active allergies Medications Medication Sig Dispensed Refills Start Date End Date Status medroxyPROGESTERon e (Depo-SubQ Provera) 104 mg/0.65 mL Syringe Inject 104 mg subcutaneously Every 12 weeks. Active bisacodyl (DULCOLAX) 5 mg EC tablet Take 5 mg by mouth daily as needed. Active M- Plus 27 mg iron- 1 mg [...] - Influenza standard series) 01/29/2024 Care Teams Director Of Event Marketing Relationship Specialty Start Date End Date Unknown None PCP - General 02/20/22
--- OUTSIDE RECORDS SUMMARY | 2024-04-01 00:18 | XMS_ITS | Encounter Summary ---
[place] [address] Care Team Providers Care Account Installer Name Role Phone Unknown Primary Care [...] on filedocumented in this encounter Care Teams Account Installer Relationship Specialty Start Date End Date Unknown None PCP - General 02/20/22 documented as of this encounter
--- OUTSIDE RECORDS SUMMARY | 2024-04-01 00:18 | XMS_ITS | Encounter Summary ---
Author Organization [facility] [place] [address] Care Team Providers Care Lab Rn Name Role Phone Unknown Primary Care Provider Unavailabl e Reason for Visit * Reason Comments Ultrasound Encounter Details Date Type Department Care Team (Late st Contact Info) Description 03/23/2022 3:00 PM EDT Office Visit Obstetrics [place] [address] Eva Lawson MD [facility] DR OBSTETRICS [place] [address] Family history of defect Social History Tobacco [...] evaluation and genetic counseling with Walter Leigh [facility]. The patient reports that this has been [...] a significantly increased genetic risk. Meds: (PNV,calcium 96-uoya-hwgkl acid), aspirin EC, bisacodyl EC, docusate sodium, [...] anomalies documented in this encounter Care Teams Lab Rn Relationship Specialty Start Date End Date Unknown None PCP - General 02/20/22 documented as of this encounter
--- OUTSIDE RECORDS SUMMARY | 2024-04-01 00:18 | XMS_ITS | Encounter Summary ---
Author Organization [facility] Address [facility] [place] [address] Care Team Providers Care Business Development Recruiter Name Role Phone KevinCarito Annette HARRIS Primary Care Provider +1- [phone] Encounter Details Date Type Department Care Team (Late st Contact Info) Description 03/16/2013 Orders Only [place] [address] Kim Hoover MD [facility] [place] [address] Social History Tobacco Use Types Packs/Day Years [...] AM EDT) 03/16/2013 6:40 AM EDT Narrative [facility][NOTE 3] - 01/23/2014 4:47 PM EDT This is a non-reportable exam. Procedure Note Andrew Dutton - 01/23/2014 This is a non-reportable exam. Kim Hoover MD [facility] FILM LIBRARY ORD ERABLES [facility] [address] [place] [address] documented in this encounter Visit Diagnoses Not on filedocumented in this encounter Care Teams Business Development Recruiter Relationship Specialty Start Date End Date Carito Brown, HEAD BAKER [address] [place] [address] PCP - General 11/13/12 01/24/22 documented as of this encounter
--- OUTSIDE RECORDS SUMMARY | 2024-04-01 00:18 | XMS_ITS | Encounter Summary ---
[place] [address] Care Team Providers Care Restaurant Crew Name Role Phone Unknown Primary Care Provider Unavailabl e Reason for Visit * Reason Comments Family History Cleft lip * Consultation (Routine) - Closed Specialty Diagnoses / Procedures Referred By Kt jj Referred To Contact Obstetrics and Gynecology Diagnoses Family history of other congenital malformations, deformations and chromosomal abnormalities Encounter for supervision of normal , unspecified, unspecified trimester Irritable bowel syndrome, unspecified Marbella Musa[address] [place] [address] [facility] Bee Tender [address] [place] [address] Referral ID Status Reason Start Date Expiration Date V isits Requested Visits Authorized [id number] Closed Consult, Test & Treat PCP Updated and/or Approved 01/25/2022 01/25/2023 2 2 Encounter Details Date Type Department Care Team ([facility] Contact Info) Description 03/23/2022 1:00 PM EDT Office Visit Obstetrics [place] [address] Walter Leigh, [facility] OBSTETRICS [place] [address] Encounter for procreative genetic counseling [...] this encounter Progress Notes * Walter Leigh, [facility] - 03/23/2022 1:00 PM EDT Reproductive Genetics Nayeli Wright is a 26 y.o. female currently at 20w5d gestation. I met with Nayeli for a 50-minute office visit at the [facility]. She was accompanied by her partner, Abdelrahman. Referring Provider: Marbella Musa CNM [address] [place] [address] [place] [address] Chief Concern Patient presents with ??? Family History Cleft lip Patient History Past Medical History: Diagnosis Date ??? ADHD ??? Depression ??? Irritable bowel syndrome with constipation Ancestry: Tristan[place], [place] Partner History Name: Abdelrahman Sam : 1995 Sex: Male Medical History: Cleft lip Ancestry: German [place] Family History Family History Problem (# of [...] counseling documented in this encounter Care Teams Restaurant Crew Relationship Specialty Start Date End Date Unknown None PCP - General 02/20/22 documented as of this encounter
--- OUTSIDE RECORDS SUMMARY | 2024-04-01 00:18 | XMS_ITS | Encounter Summary ---
[place] [address] Care Team Providers Care Skid Worker Name Role Phone Unknown Primary Care Provider Unavailabl e Reason for Referral * Diagnostic Test (Routine) - Closed Specialty Diagnoses / Procedures Referred By Kt t Referred To Contact Radiology Diagnoses Family history of congenital anomalies , unspecified gestational age Irritable bowel syndrome complicating , second trimester Procedures US OB Detailed Morphology Marbella Musa CNM [address] [place] [address] [address] [place] [address] [place] [address] Referral ID Status Reason Start Date Expiration Date V isits Requested Visits Authorized [id number] Closed Specialty Service Requested 02/03/2022 08/04/2023 1 1 Reason for Visit * Diagnostic Test (Routine) - Closed Specialty Diagnoses / Procedures Referred By Contac t Referred To Contact Radiology Diagnoses Family history of congenital anomalies , unspecified gestational age Irritable bowel syndrome complicating , second trimester Procedures US OB Detailed Morphology Marbella Musa CNM [address] [place] [address] [address] [place] [address] [facility] [place] [address] Referral ID Status Reason Start Date Expiration Date V isits Requested Visits Authorized [id number] Closed Specialty Service Requested 02/03/2022 08/04/2023 1 1 Encounter Details Date Type Department Care Team (Latest Contact Info) Description 03/23/2022 12:50 PM EDT - 03/23/2022 11:59 PM EDT Hospital En[place] [address] Marbella Musa, [facility] [address] [place] [address] [address] [place] [address] Family history of congenital anomalies; , unspecified [...] who have questions, please contact the health care coordination manager that requested your imaging first. ?Eva Lawson, Leather Sprayer Electronically Signed Final Report ?? 03/23/2022 03:26 pm Narrative 03/23/2022 3:27 PM EDT OBSTETRICS REPORT ?(Signed Final 03/23/2022 03:26 pm) PATIENT INFO: ID #: ? [id number] ?: ??[birth year] (26 yrs)(F) Name: ? RANDEE WRIGHT ? Visit Date: 03/23/2022 02:24 pm PERFORMED BY: Performed By: ? Stephen LARES, ??Stephanie Attending: ?Lulu BASHIR, Eva Taylor Referred By: ?MARBELLA MUSA Location: ? [place] SERVICE(S) PROVIDED: [facility] - Detailed Morphology - [id number] ? [id number] INDICATIONS: 20 weeks gestation of ?Z3A.20 FOB [...] Arch: ? Visualized SVC: ? Visualized Cardiac Empire: ?Visualized Diaphragm: ? Visualized 3 Vessel View: [...] 03/23/2022 03:26 pm) PATIENT INFO: ID #: [id number] : [birth year] (26 yrs)(F) Name: RANDEE WRIGHT Visit Date: 03/23/2022 02:24 pm PERFORMED BY: Performed By: Stephanie Mitchell RDMS Attending: Eva Lawson MD Referred By: MARBELLA UMSA Location: [place] SERVICE(S) PROVIDED: [facility] - Detailed Morphology - [id number] INDICATIONS: 20 weeks gestation of Z3A.20 FOB [...] Visualized Ductal Arch: Visualized SVC: Visualized Cardiac Empire: Visualized Diaphragm: Visualized 3 Vessel View: Visualized [...] who have questions, please contact the health care coordination manager that requested your imaging first. Eva Lawson, Leather Sprayer Electronically Signed Final Report 03/23/2022 03:26 pm Marbella Musa CNM [facility] OB ORDERABLES documented in this encounter Visit Diagnoses Diagnosis Family history of congenital anomalies , unspecified gestational age Irritable bowel syndrome complicating , second trimester documented in this encounter Care Teams Skid Worker Relationship Specialty Start Date End Date Unknown None PCP - General 02/20/22 documented as of this encounter
--- OUTSIDE RECORDS SUMMARY | 2024-04-01 00:18 | XMS_ITS | Encounter Summary ---
Author Organization [facility] Address [facility] [place] [address] Care Team Providers Care Morale Officer Name Role Phone Carito Brown APRN Primary Care Provider +1- [phone] Encounter Details Date Type Department Care Team (Late st Contact Info) Description 12/28/2012 10:32 AM EDT - 12/28/2012 11:59 PM EDT Hospital Encounter XRay at [address] [place] [address] Constipation Social History Tobacco Use Types Packs/Day [...] within the rectal vault. ??There are 5 cxn-tmq-monktav lumbar type vertebral bodies in the right [...] material within therectal vault. There are 5 ntx-boh-obftpql lumbar type vertebral bodies in theright and [...] constipation documented in this encounter Care Teams Morale Officer Relationship Specialty Start Date End Date Carito Brown, PEDIGREE TRACER [address] [place] [address] PCP - General 11/13/12 01/24/22 documented as of this encounter
--- OUTSIDE RECORDS SUMMARY | 2024-04-01 00:18 | XMS_ITS | Encounter Summary ---
Author Organization [facility] Address [address] [place] [address] Care Team Providers Care Director Of Manufacturing Name Role Phone Unavailable Primary Care Provider Unavailabl e Encounter Details Date Type Department Care Team (Late st Contact Info) Description 01/22/2022 Lab Requisition [facility] Pathology & Laboratory Medicine - [facility] [address] [place] [address] Outr Resulting Lab, Provider Social History Tobacco [...] Negative Negative 01/25/2022 10:08 EDT [facility] Blood VENOUS BLOOD / Unknown 01/22/2022 10:36 EDT 01/22/2022 17:36 EDT Provider Outr Resulting Lab CHEMISTRY & BLOOD GAS ORDERABLES [facility] [address] [place] [address] * HEPATITIS C AB W REFLEX TO HCV RNA BY PCR (01/22/2022 10:36 EDT) Hep C Antibody Negative Negative 01/25/2022 10:47 EDT [facility] Blood VENOUS BLOOD / Unknown 01/22/2022 10:36 EDT 01/22/2022 17:36 EDT Provider Outr Resulting Lab CHEMISTRY & BLOOD GAS ORDERABLES [facility] [address] [place] [address] documented in this encounter Visit Diagnoses Not on filedocumented in this encounter
--- OUTSIDE RECORDS SUMMARY | 2024-04-01 00:18 | XMS_ITS | Encounter Summary ---
Author Organization [facility] [place] [address] Care Team Providers Care Gate Mortiser Operator Name Role Phone Kevin Carito Bryant APRN Primary Care Provider +1- [phone] Reason for Visit * Reason Onset Date Comments Constipation 01/18/2013 Encounter Details Date Type Department Care Team (Late st Contact Info) Description 01/18/2013 Telephone Pediatric [place] [address] Kim Hoover MD [facility] DR [place] [address] Constipation Social History Tobacco Use Types Packs/Day [...] on filedocumented in this encounter Care Teams Gate Mortiser Operator Relationship Specialty Start Date End Date Carito Brown, SWITCH CLEANER [address] [place] [address] PCP - General 11/13/12 01/24/22 documented as of this encounter
--- OUTSIDE RECORDS SUMMARY | 2024-04-01 00:18 | XMS_ITS | Encounter Summary ---
[place] [address] Care Team Providers Care Lay Out Drafter Name Role Phone Luiza Cole APRN Primary Care Provider Reason for Referral * Consultation (Routine) - Closed Specialty Diagnoses / Procedures Referred By Kt t Referred To Contact Obstetrics and Gynecology Diagnoses Family history of other congenital malformations, deformations and chromosomal abnormalities Encounter for supervision of normal , unspecified, unspecified trimester Irritable bowel syndrome, unspecified Marbella Musa CNM [address] [place] [address] [address] [place] [address] [facility] Power Checker [address] [place] [phone] Referral ID Status Reason Start Date Expiration Date V isits Requested Visits Authorized [id number] Closed Consult, Test & Treat PCP Updated and/or Approved 01/25/2022 01/25/2023 2 2 Encounter Details Date Type Department Care Team (Late st Contact Info) Description 01/25/2022 Transcribe Orders eDH Incoming Referrals [phone] Marbella Musa CNM [address] [place] [address] [address] [place], [place] [id number] Family history of congenital anomalies Social History [...] anomalies documented in this encounter Care Teams Lay Out Drafter Relationship Specialty Start Date End Date Luiza Cole APRN [address] [place] [address] [address] [place] [address] PCP - General Family Medicine 01/25/22 02/19/22 documented as of this encounter
--- OUTSIDE RECORDS SUMMARY | 2024-04-01 00:18 | XMS_ITS | Encounter Summary ---
Author Organization [facility] [place] [address] Care Team Providers Care Public Relations Consultant Name Role Phone Carito Brown SUPERVISOR REWORK Primary Care Provider +1- [phone] Encounter Details Date Type Department Care Team (Late st Contact Info) Description 03/25/2013 Telephone [place] [address] Kim Hoover MD [facility] [place] [address] Social History Tobacco Use Types Packs/Day Years [...] on filedocumented in this encounter Care Teams Public Relations Consultant Relationship Specialty Start Date End Date Carito Brown, SUPERVISOR REWORK [address] [place] [address] PCP - General 11/13/12 01/24/22 documented as of this encounter
--- OUTSIDE RECORDS SUMMARY | 2024-04-01 00:18 | XMS_ITS | Encounter Summary ---
Author Organization [facility] [place] [address] Care Team Providers Care Slack Cooper Name Role Phone Carito Brown APRN Primary Care Provider +1- [phone] Encounter Details Date Type Department Care Team (Late st Contact Info) Description 03/19/2013 External Results XRay at [address] [place] [address] Provider, Scanning Social History Tobacco Use Types [...] on filedocumented in this encounter Care Teams Slack Cooper Relationship Specialty Start Date End Date Carito Brown APRN [address] [place] [address] PCP - General 11/13/12 01/24/22 documented as of this encounter
--- OUTSIDE RECORDS SUMMARY | 2024-04-01 00:18 | XMS_ITS | Encounter Summary ---
Author Organization [facility] Address [address] [place] [address] Care Team Providers Care Plastic Surgery Technician Name Role Phone Unavailable Primary Care Provider Unavailabl e Encounter Details Date Type Department Care Team (Late st Contact Info) Description 01/22/2022 Lab Requisition [facility] Pathology & Laboratory Medicine - [facility] [address] [place] [address] Outr Resulting Lab, Provider Social History Tobacco [...] 4th Generation Negative Negative 01/23/2022 9:19 EDT [facility] Comment:If acute HIV-1 infec tion is suspected in a high risk patient, submit plasma specimen for HIV-1 RNA quantitation test. Blood VENOUS BLOOD / Unknown 01/22/2022 10:36 EDT 01/22/2022 17:36 EDT Narrative [facility] - 01/23/2022 9:19 EDT Fourth Generation assay performed on the Siemens Centaur XPT. Provider Outr Resulting Lab IMMUNOLOGY A ND SEROLOGY ORDERABLES [facility] [address] [place] [address] documented in this encounter Visit Diagnoses Not on filedocumented in this encounter
--- OUTSIDE RECORDS SUMMARY | 2024-04-01 00:18 | XMS_ITS | Encounter Summary ---
Author Organization [facility] Address [address] [place] [address] Care Team Providers Care Access Services Representative Name Role Phone Unavailable Primary Care Provider Unavailabl e Encounter Details Date Type Department Care Team (Late st Contact Info) Description 02/25/2022 Lab Requisition [facility] Pathology & Laboratory Medicine - [facility] [address] [place] [address] Outr Resulting Lab, Provider Social History Tobacco [...] gonorrhoeae Result Negative Negative 02/26/2022 15:08 EDT [facility] Chlamydia trachomatis Result Positive(A) Negative 02/26/2022 15:08 EDT [facility] Urine URINE / Unknown 02/24/2022 1 5:05 EDT 02/25/2022 19:03 EDT Narrative [facility] - 02/26/2022 15:08 EDT A first catch urine specimen is acceptable for detection of Gonorrhea and Chlamydia, but might detect up to 10% fewer infections when compared with vaginal and endocervical swab samples. Provider Outr Resulting Lab MICROBIOLOGY - GENERAL ORDERABLES [facility] [address] [place] [address] documented in this encounter Visit Diagnoses Not on filedocumented in this encounter
--- OUTSIDE RECORDS SUMMARY | 2024-04-01 00:18 | XMS_ITS | Encounter Summary ---
Author Organization [facility] [place] [address] Care Team Providers Care Modeler Name Role Phone Carito Brown APRN Primary Care Provider +1- [phone] Encounter Details Date Type Department Care Team (Late st Contact Info) Description 03/18/2013 Telephone Pediatric [place] [address] Kim Hoover MD [facility] [place] [address] Social History Tobacco Use Types Packs/Day Years [...] on filedocumented in this encounter Care Teams Modeler Relationship Specialty Start Date End Date Carito Brown APRN [address] [place] [address] PCP - General 11/13/12 01/24/22 documented as of this encounter
--- OUTSIDE RECORDS SUMMARY | 2024-04-01 00:18 | XMS_ITS | Encounter Summary ---
Author Organization [facility] Address [address] [place] [address] Care Team Providers Care Dehorner Name Role Phone Unavailable Primary Care Provider Unavailabl e Encounter Details Date Type Department Care Team (Late st Contact Info) Description 03/25/2022 Lab Requisition [facility] Pathology & Laboratory Medicine - [facility] [address] [place] [address] Outr Resulting Lab, Provider Social History Tobacco [...] gonorrhoeae Result Negative Negative 03/26/2022 15:58 EDT [facility] Chlamydia trachomatis Result Negative Negative 03/26/2022 15:58 EDT [facility] Swab ENTIRE ENDOCERVIX / Unknown 03/24/2022 15:30 EDT 03/25/2022 18:09 EDT Provider Outr Resulting Lab MICROBIOLOGY - GENERAL ORDERABLES [facility] [address] [place] [address] documented in this encounter Visit Diagnoses Not on filedocumented in this encounter
[2024-04-01 00:47] LABS: Abs Immature Grans 0.05 10^3/uL (0.0-0.06); Absolute Basophil Count 0.02 10^3/uL (0.0-0.2); Absolute Eosinophil Count 0.02 10^3/uL (0.0-0.7); Absolute Lymphocyte Count 1.39 10^3/uL (1.2-3.4); Absolute Monocyte Count 0.66 10^3/uL (0.1-0.8); Basophils % 0.1 %; Eosinophils % 0.1 %; HCT 38.6 % (36.0-46.0); HGB 13.6 g/dL (11.2-15.7); Immature Grans % 0.3 %; Lymphocytes % 9.1 %; MCHC 35.2 % (32.0-36.0); MCV 91 fL (80-95); MPV 12.4 fL (8.0-11.0); Monocytes % 4.3 %; Neutrophils % 86.1 %; Platelet Count 211 10^3/uL (130-400); RBC 4.25 10^6/uL (3.93-5.22); RDW 12.7 % (11.7-14.6); RDW-SD 41.8 fL; WBC 15.28 10^3/uL (4.4-10.8)
[2024-04-01 00:48] LABS: Absolute Neutrophil Count 13.16 10^3/uL (1.2-6.7)
[2024-04-01] MEDS: Famotidine 20 MG/2 ML VIAL IVP (00:48)
[2024-04-01] MEDS: Metoclopramide 10 MG/2 ML VIAL IVP ×2 (00:48→04:42)
[2024-04-01] MEDS: ACETAMINOPHEN 650 MG/65 ML BAG 260 MG IVPB (00:48)
[2024-04-01] MEDS: Normal Saline 1,000 ML 1000 ML IV (00:49)
[2024-04-01 00:58] LABS: ALT 25 U/L (14-59); AST 17 U/L (15-37); Albumin 4.2 g/dL (3.4-5.0); Alkaline Phosphatase 46 U/L (46-116); Anion Gap 12.5 mmol/L (3-11); BUN 8 mg/dL (7-18); Bilirubin, Total 0.36 mg/dL (0.2-1.0); CO2 23.5 mmol/L (21.0-32.0); CREATININE 0.7 mg/dL (0.55-1.02); Chloride 105 mmol/L (98-107); Estimated GFR 121.49 (mL/min/1.73m2); Glucose 107 mg/dL (74-106); Lipase 32 U/L (16-77); Potassium 3.6 mmol/L (3.5-5.1); Sodium 141 mmol/L (136-145); Total Protein 7.4 g/dL (6.4-8.2)
[2024-04-01 01:04] LABS: Calcium 9.7 mg/dL (8.5-10.1)
[2024-04-01] MEDS: DEXTROSE 5%-0.9% SALINE 1,000 ML 125 ML IV (01:23)
[2024-04-01 01:29] LABS: Bilirubin Negative (Negative); Blood Negative (Negative); Clarity Clear (Clear); Glucose Negative (Negative); Ketones 80 mg/dL (Negative); Leukocyte Esterase Negative (Negative); Nitrite Negative (Negative); Specific Gravity >= 1.030 (1.005-1.025); Urobilinogen 0.2 mg/dL (Up to 0.2); pH 6.5 (5-8)
[2024-04-01 01:31] LABS: Bacteria Rare HPF (Negative); C & S Indicated? No; Casts Negative LPF (Negative); Crystals Negative HPF (Negative); Epithelial Cells Moderate HPF (Negative); Mucus Trace (Negative); RBC Negative HPF (0-2); WBC Negative HPF (0-5)
[2024-04-01] MEDS: cefTRIAXone 1 GM/50 ML BAG IVPB (04:21)
[2024-04-01] MEDS: MORPHine 10 MG/ML VIAL 2 MG IVP (04:42)
--- NOTE | 2024-04-01 07:38 | DI.US_ITS ---
Exam(s) US ABDOMEN LIMITED EXAM: US ABDOMEN LIMITED CLINICAL HISTORY: eval RLQ and RUQ for GB and appe pathology TECHNIQUE: Ultrasound abdomen performed using standard protocol. COMPARISON: No exams were available for comparison FINDINGS: LIVER: Normal size and echogenicity. No focal liver lesions are seen. GALLBLADDER: No evidence of cholelithiasis. No evidence of wall thickening. No pericholecystic fluid identified. LANDRY'S SIGN: Negative. BILIARY SYSTEM: No intrahepatic or extrahepatic biliary ductal dilation. KIDNEYS: Kidneys are symmetric in size. No evidence of renal calculi. No evidence of hydronephrosis. No renal mass or cyst identified. PANCREAS: Normal where visualized. SPLEEN: Not enlarged. ABDOMINAL AORTA AND IVC: Visualized portions normal caliber. ASCITES: None seen. Right lower quadrant was also scanned. The appendix was not visualized. Normal appearing groin lymp h nodes are present.. IMPRESSION: Normal sonographic appearance of the upper abdomen. The appendix was not identified. No right lower quadrant fluid. DATA REPOSITORY:
[2024-04-01 09:20] LABS: Abs Immature Grans 0.04 10^3/uL (0.0-0.06); Absolute Eosinophil Count 0.01 10^3/uL (0.0-0.7); Absolute Lymphocyte Count 1.58 10^3/uL (1.2-3.4); Basophils % 0.1 %; Eosinophils % 0.1 %; HCT 37.1 % (36.0-46.0); HGB 12.7 g/dL (11.2-15.7); Immature Grans % 0.3 %; Lymphocytes % 11.6 %; MCH 31.3 pg (27.0-33.0); MCHC 34.2 % (32.0-36.0); MCV 91 fL (80-95); Monocytes % 6.5 %; Neutrophils % 81.4 %; RBC 4.06 10^6/uL (3.93-5.22); RDW 12.6 % (11.7-14.6); RDW-SD 42.5 fL; WBC 13.61 10^3/uL (4.4-10.8)
[2024-04-01 09:22] LABS: Absolute Basophil Count 0.01 10^3/uL (0.0-0.2); Absolute Monocyte Count 0.88 10^3/uL (0.1-0.8); Absolute Neutrophil Count 11.08 10^3/uL (1.2-6.7)
[2024-04-01] MEDS: ACETAMINOPHEN 1,000 MG/100 ML BAG 400 MG IVPB (10:10)
--- NOTE | 2024-04-01 11:47 | DI.VRAD_ITS ---
PROCEDURE INFORMATION: Exam: US Abdomen, Limited; Right Upper Quadrant Exam date and time: 04/01/2024 8:27 AM Age: 28 years old Clinical indication: Abdominal pain; Patient HX: Patient is approximately 9 weeks TECHNIQUE: Imaging protocol: Real time ultrasound of the abdomen with image documentation. Limited exam focused on the right upper quadrant. COMPARISON: US OB 1ST TRIMESTER 02/27/2024 7:30 PM FINDINGS: Liver: Normal. No masses. Gallbladder: Normal. No gallstones. There is no gallbladder wall thickening. Biliary ducts: Normal. No stones. No dilation. Pancreas: Visualized pancreas is unremarkable. Right kidney: Normal. No mass. No hydronephrosis. Appendix: The appendix is not identified. There are no thickened bowel loops in the right lower quadrant. Prominent lymph nodes in the right lower quadrant measuring up to 15 mm. IMPRESSION: 1. No acute findings. 2. Prominent lymph nodes in the right lower quadrant of the abdomen. Possible mesenteric adenitis. Correlate clinically. Dictated and Authenticated by: Gen Nelson MD. Ordering:GAGAN Prince MD
--- NOTE | 2024-04-01 11:47 | HPE_ITS ---
Date of service: 04/01/24 Time of Service: 11:47 Assessment and Plan Assessment and plan (1) Abdominal pain, right lower quadrant: Status: Acute (2) ADHD (attention deficit hyperactivity disorder): Qualifiers: Attention deficit-hyperactivity disorder type: predominantly inattentive Qualified Code(s): F90.0 - Attention-deficit hyperactivity disorder, predominantly inattentive type (3) Irritable bowel syndrome with constipation: (4) Abdominal pain during intrauterine : Status: Acute Assessment and plan: Findings are equivocal for appendicitis. She is 9 weeks . We did discuss the pros and cons of doing surgery and an appendectomy versus treating this medically. There is a risk of congenital defects from antibiotics or from anesthesia. There is a risk for loss of with surgery or with infection. Currently her symptoms are slightly improved after 1 dose of Rocephin. And she is decided that she wants to go with medical treatment at this point to try to save the . We did discuss that if she should become sicker with increasing pain fever chills vomiting or signs of sepsis that we would be forced to surgery to operate to save her life and she understands admit her up to [facility] for close monitoring and observation I did review antibiotic safety profiles with pharmacy and we have elected to go with Zosyn (5) Leukocytosis (leucocytosis): Status: Acute History of Present Illness Narrative: Patient is a 28-year-old female who is 9 weeks . This is not her first . This is very much a wanted . She has had children before. So far she has not had any bleeding morning sickness with this . She did not have any round ligament pain with any of her previous pregnancies. She does have a history of IBS which is significant for cramping abdominal pain and constipation. Usually once she moves her bowels then her symptoms subside. She did have a bowel movement yesterday which was a good amount. This does not relieve her abdominal pain. No one else at home is ill. None of her other children or are ill. She denies any eating any unusual foods. She has not traveled. Everyone ate the same food at home and no one else is ill. She has not been around anyone who has been ill. No changes in diet or supplements. Her symptoms started Tuesday with loss of appetite. She still does not have much of an appetite right now. The pain started Tuesday morning it was felt like it was mid periumbilical but when she touched her abdomen and it appeared to be sore in the right lower quadrant. She has had an increase in pain and nausea over night and came into the ER last night. She did have a 15,000 white count. She did receive 1 dose of ceftriaxone and the white count came down to 13,000. Urine was negative. She did have a ultrasound done but they could not see the appendix. They did see a lot of enlarged lymph nodes. There is a intrauterine and no adnexal abnormalities. Had no abnormal bleeding or spotting or discharge. She had a yeast infection last week which was treated and resolved. She has not felt the baby moving/she is only 9 weeks . Currently the pain is slightly better since she got antibiotics and Tylenol. She has had no fever or chills. She would like to try drinking some water. Blood pressure and heart rate are reassuring. We will not be checking heart tones She has never had any abdominal surgery/surgery previously. She has never had anesthesia before. Review of Systems All systems reviewed & are unremarkable except as noted in HPI and below PFSH All Active Problems (Updated 04/01/24 @ 12:58 by Stephanie Fernando DO) Leukocytosis (leucocytosis) (Acute) Abdominal pain during intrauterine (Acute) Abdominal pain, right lower quadrant (Acute) Medical History Irritable bowel syndrome with constipation ADHD (attention deficit hyperactivity disorder) Major depressive disorder Surgical History No pertinent past surgical history Family History Mother , 37 from suicide Depression Father Asthma Brother No problems noted. Brother Asthma Sister No problems noted. Daughter No problems noted. Maternal Grandfather No problems noted. Maternal Grandmother Breast cancer x 3 Paternal Grandfather No problems noted. Paternal Grandmother No problems noted. Social History Smoking/Tobacco Use Status: Current-Occasional Tobacco: How many years used: 2 Second Hand Exposure: Yes Smoking risk assessment performed?: Yes Alcohol Intake: current Alcohol Intake frequency: a few times a week Alcohol type: wine Drug use: Never Substance use type: does not use Counseling provided: none Caregiver/Support person: No Household members: friend(s) Housing: house Communication Needs: Corrective Lenses Do you need help understanding health information?: Never Pets and animals: Yes Pets and animals: dog(s) Sexually active: Yes Do you think of yourself as: straight/heterosexual Current gender identity: female What is your relationship status?: never How often do you talk on the phone with friends or family?: once per week Do you belong to any clubs or organized social groups?: no Panel score (0-1 are the most socially isolated patients): 0 What type of physical activity do you participate in: walking Duration: > 90 minutes/day Frequency: 3-4 times per week Chantal/Confucianist: None Special chantal needs: No Seatbelt use: always Helmet use: Yes Helmet use: always Drive intox or ride w/intox driver/refuse collector: No Do you feel safe at home: Yes Do you feel safe in your relationship?: Yes Female Reproductive History Menstrual control method: none History History 2 3 Para 1 Hx # Term Pregnancies 1 Multiple births 0 Hx # Pregnancies 0 Ectopic pregnancies 0 AB induced 1 Hx Number of Living Children 1 AB spontaneous 0 Past Pregnancies Del. Date GA/Weeks # Preg Succ Route Wgt Sex Labor Lgth Anesth esia Location [facility] 02/27/21 10 No 08/18/22 41 No Yes vaginal 3599.822 g Female 24hrs 9min regional [facility] Delivery Date: 02/27/21 Last Updated by: Marbella Musa Elective Ab Delivery Date: 08/18/22 Last Updated by: HARLAN Reyes Meds Allergies and Home Medications Allergies Allergy/AdvReac Type Severity Reaction Status Date / Time hydrocodone (From Vicodin) AdvReac Nausea Verified 04/01/24 00:23 Home Medications ?Medication ?Instructions ?Recorded ?Confirmed ?Type polyethylene glycol 3350 17 17 g PO DAILY PRN constipation 07/13/22 04/01/24 Rx gram/dose oral powder (Miralax) #510 grams magnesium 250 mg tablet 250 mg PO DAILY PRN 01/16/24 04/01/24 History vitamin with calcium 1 tab PO DAILY #90 tabs 01/16/24 04/01/24 Rx no.72-iron 27 mg-folic acid 1 mg tablet salicylic acid 40 % topical plaster 1 applic topical Q2D PRN callus 02/02/24 04/01/24 Rx removal #18 ea Exam Const Other: PHYSICAL EXAM GENERAL APPEARANCE: Alert, healthy appearance, oriented, x 3,? in no acute distress HYDRATION: Well hydrated HEAD, EYES, EARS, NECK, THROAT: Head is normocephalic, pupils equal, round, reactive to light and accommodation, ocular movement intact, sclera clear and no jaundice. ?Dentition intact. No sore throat.? No thrush LUNGS: normal respiration/normal chest excursion. ?Clear to auscultation bilaterally. ?No wheeze. ?HEART: Regular rate and rhythm. no murmurs EXTREMITY: No edema or cyanosis.? no leg pain, redness, swelling.? ABDOMEN: ? Normal bowel sounds.? No hernias.? Mild tenderness in the right lower quadrant. Minimal guarding and no rebound. Heelstrike and Rovsing's are negative. Results Labs 04/01/24 09:12 04/01/24 00:21 Labs: Laboratory Results - last 24 hr 04/01/24 04/01/24 04/01/24 00:21 01:20 EST 09:12 WBC 15.28 H 13.61 H RBC 4.25 4.06 Hgb 13.6 12.7 Hct 38.6 37.1 MCV 91 91 MCH 32.0 31.3 MCHC 35.2 34.2 RDW 12.7 12.6 Plt Count 211 MPV 12.4 H Immature Gran % 0.3 0.3 Neutrophils % 86.1 81.4 Lymphocytes % 9.1 11.6 Monocytes % 4.3 6.5 Eosinophils % 0.1 0.1 Basophils % 0.1 0.1 Nucleated RBC % 0.0 0.0 Absolute Neutrophils 13.16 H 11.08 H Absolute Lymphocytes 1.39 1.58 Absolute Monocytes 0.66 0.88 H Absolute Eosinophils 0.02 0.01 Absolute Basophils 0.02 0.01 Sodium 141 Potassium 3.6 Chloride 105 Carbon Dioxide 23.5 Anion Gap 12.5 H BUN 8 Creatinine 0.7 Est GFR (CKD-EPI 2020) 121.49 Glucose 107 H Calcium 9.7 Total Bilirubin 0.36 AST 17 ALT 25 Alkaline Phosphatase 46 Total Protein 7.4 Albumin 4.2 Lipase 32 Urine Color Yellow Urine Clarity Clear Urine pH 6.5 Ur Specific [place] >= 1.030 H Urine Protein 30 H Urine Ketones 80 H Urine Blood Negative Urine Nitrite Negative Urine Bilirubin Negative Urine Urobilinogen 0.2 Ur Leukocyte Esterase Negative Urine RBC Negative Urine WBC Negative Ur Epithelial Cells Moderate Urine Crystals Negative Urine Bacteria Rare Urine Casts Negative Urine Mucus Trace Ur Culture Indicated? No Urine Glucose Negative Add-On Test Request 04/01/24 Unknown WBC RBC Hgb Hct MCV MCH MCHC RDW Plt Count MPV Immature Gran % Neutrophils % Lymphocytes % Monocytes % Eosinophils % Basophils % Nucleated RBC % Absolute Neutrophils Absolute Lymphocytes Absolute Monocytes Absolute Eosinophils Absolute Basophils Sodium Potassium Chloride Carbon Dioxide Anion Gap BUN Creatinine Est GFR (CKD-EPI 2020) Glucose Calcium Total Bilirubin AST ALT Alkaline Phosphatase Total Protein Albumin Lipase Urine Color Urine Clarity Urine pH Ur Specific Ames Urine Protein Urine Ketones Urine Blood Urine Nitrite Urine Bilirubin Urine Urobilinogen Ur Leukocyte Esterase Urine RBC Urine WBC Ur Epithelial Cells Urine Crystals Urine Bacteria Urine Casts Urine Mucus Ur Culture Indicated? Urine Glucose Add-On Test Request Cancelled Last Vital Signs Temp 36.6 C 04/01/24 00:12 Pulse 66 04/01/24 10:31 Resp 16 04/01/24 06:05 BP 97/43 L 04/01/24 10:31 Pulse Ox 99 04/01/24 10:40 Time Spent Time spent with Patient: 55-74 minutes Time was spent: preparing to see the patient(eg.review tests), obtaining and/or reviewing separately otained hiistory, ordering medications,tests, procedures, referring, communicating with other health critical care educator, indepentently interpreting results, counseling the patient, care coordination and other
[2024-04-01] MEDS: PIPERACILLIN/TAZO 3.375 GM in Normal Saline 50 ML IVPB ×2 (12:37→18:17)
--- NOTE | 2024-04-01 12:40 | ED.PROG_ITS ---
Date of service: 04/01/24 Time of Service: 12:40 Medical Decision Making Patient was signed out to me pending evaluation by surgery. Please refer to Dr. Woody's HPI, physical exam, assessment and plan. On reassessment patient's pain is minimally improved. But certainly not significantly worsened. Repeat CBC demonstrates slightly dropping white count at 13. She still has notable left shift, but no bandemia. Repeat exam shows continued right lower quadrant pain. History and exam are concerning for potential appendicitis. Dr. Fernando has come and evaluated the patient, the ultrasound that I did order here she was not able to identify the appendix. They did not see any other significant abnormalities otherwise. Because of the current clinical picture lack of ultrasonographic evidence of acute appendicitis, and the patient's current noted stability in the setting of her , the decision has been made through shared decision-making process with surgery and the patient to hold off on surgery for the time being continue close observation from the admitted status. Antibiotics have already been given. Patient will be admitted upstairs for continued monitoring. I have extensively reviewed the treatment plan with the patient. I have addressed all patient concerns at this time. I have also discussed the plan with the admitting physician and they agree with the current assessment and plan and have agreed to assume responsibility for the patient. All parties demonstrate verbal understanding and agreement with our assessment and plan at this time. The documentation in this chart was dictated using Care Team Connect dictation software. Please excuse any dictation errors. FINDINGS: LIVER: Normal size and echogenicity. No focal liver lesions are seen. GALLBLADDER: No evidence of cholelithiasis. No evidence of wall thickening. No pericholecystic fluid identified. LANDRY'S SIGN: Negative. BILIARY SYSTEM: No intrahepatic or extrahepatic biliary ductal dilation. KIDNEYS: Kidneys are symmetric in size. No evidence of renal calculi. No evidence of hydronephrosis. No renal mass or cyst identified. PANCREAS: Normal where visualized. SPLEEN: Not enlarged. ABDOMINAL AORTA AND IVC: Visualized portions normal caliber. ASCITES: None seen. Right lower quadrant was also scanned. The appendix was not visualized. Normal appearing groin lymph nodes are present.. IMPRESSION: Normal sonographic appearance of the upper abdomen. The appendix was not identified. No right lower quadrant fluid. Quality:SDOH Health Related Social Needs: No Data to Display Sign Out Sign Out Data: Sign Out Comment: Pending surgical evaluation this morning Last updated by Philippe Kessler MD at 04/01/24 07:12 Discharge Plan Disposition Patient Disposition: Admit to [facility] Condition: Good Condition: Stable Discharge Details Chief Complaint: Abd Prob Clinical Impression: Abdominal pain, right lower quadrant Primary Care Provider: Shani Gomez ED Provider: Suresh Ashley Home Meds and New Rx's Prescriptions: No Action salicylic acid 40 % plaster 1 applic topical Q2D PRN (Reason: callus removal) Qty: 18 0RF magnesium 250 mg tablet 250 mg PO DAILY PRN PNV,calcium 76-vfsc-orllk acid 27 mg iron- 1 mg tablet 1 tab PO DAILY Qty: 90 4RF Rx Instructions: give with food (meal/snack) polyethylene glycol 3350 [Miralax] 17 gram/dose powder 17 g PO DAILY PRN (Reason: constipation) Qty: 510 4RF
--- OUTSIDE RECORDS SUMMARY | 2024-04-01 13:11 | XMS_ITS | Encounter Summary ---
Author Organization [facility] Address [address] [place] [id number] Care Team Providers Care Agriculture Consultant Name Role Phone Unavailable Primary Care Provider Unavailabl e Encounter Details Date Type Department Care Team (Late st Contact Info) Description 03/25/2022 Lab Requisition [facility] Pathology & Laboratory Medicine - [place] [facility] [address] [place] [address] Outr Resulting Lab, Provider Social History Tobacco [...] gonorrhoeae Result Negative Negative 03/26/2022 15:58 EDT [facility] Chlamydia trachomatis Result Negative Negative 03/26/2022 15:58 EDT [facility] Swab ENTIRE ENDOCERVIX / Unknown 03/24/2022 15:30 EDT 03/25/2022 18:09 EDT Provider Outr Resulting Lab MICROBIOLOGY - GENERAL ORDERABLES [facility] [address] [place] [address] documented in this encounter Visit Diagnoses Not on filedocumented in this encounter
--- OUTSIDE RECORDS SUMMARY | 2024-04-01 13:11 | XMS_ITS | Encounter Summary ---
[place] [address] Care Team Providers Care Coding And Reimbursement Specialist Name Role Phone Unknown Primary Care Provider Unavailabl e Reason for Referral * Diagnostic Test (Routine) - Closed Specialty Diagnoses / Procedures Referred By Kt t Referred To Contact Radiology Diagnoses Family history of congenital anomalies , unspecified gestational age Irritable bowel syndrome complicating , second trimester Procedures US OB Detailed Morphology Marbella Musa CNM [address] [place] [address] [address] [place] [address] [place] [address] Referral ID Status Reason Start Date Expiration Date V isits Requested Visits Authorized [id number] Closed Specialty Service Requested 02/03/2022 08/04/2023 1 1 Reason for Visit * Diagnostic Test (Routine) - Closed Specialty Diagnoses / Procedures Referred By Contac t Referred To Contact Radiology Diagnoses Family history of congenital anomalies , unspecified gestational age Irritable bowel syndrome complicating , second trimester Procedures US OB Detailed Morphology Marbella Musa CNM [address] [place] [address] [address] [place] [address] [facility] [address] Referral ID Status Reason Start Date Expiration Date V isits Requested Visits Authorized [id number] Closed Specialty Service Requested 02/03/2022 08/04/2023 1 1 Encounter Details Date Type Department Care Team (Latest Contact Info) Description 03/23/2022 12:50 PM EDT - 03/23/2022 11:59 PM EDT Hospital [place] [address] Marbella Musa, [facility] [address] [place] [address] [address] [place] [address] Family history of congenital anomalies; , unspecified [...] who have questions, please contact the health post acute care nurse practitioner that requested your imaging first. ?Eva Lawson, Manager Aviation Electronically Signed Final Report ?? 03/23/2022 03:26 pm Narrative 03/23/2022 3:27 PM EDT OBSTETRICS REPORT ?(Signed Final 03/23/2022 03:26 pm) PATIENT INFO: ID #: ? [id number] ?: ??[birth year] (26 yrs)(F) Name: ? RANDEE WRIGHT ? Visit Date: 03/23/2022 02:24 pm PERFORMED BY: Performed By: ? Stephen LARES, ??Stephanie Attending: ?Lulu BASHIR, Eva Taylor Referred By: ?MARBELLA MUSA Location: ? [place] SERVICE(S) PROVIDED: FM - Detailed Morphology - [id number] ? [id number] INDICATIONS: 20 weeks gestation of ?Z3A.20 FOB [...] Arch: ? Visualized SVC: ? Visualized Cardiac Compton: ?Visualized Diaphragm: ? Visualized 3 Vessel View: [...] 03/23/2022 03:26 pm) PATIENT INFO: ID #: [id number] : [birth year] (26 yrs)(F) Name: RANDEE WRIGHT Visit Date: 03/23/2022 02:24 pm PERFORMED BY: Performed By: Stephanie Mitchell RDMS Attending: Eva Lawson MD Referred By: MARBELLA MUSA Location: [place] SERVICE(S) PROVIDED: [facility] - Detailed Morphology - [id number] INDICATIONS: 20 weeks gestation of Z3A.20 FOB [...] Visualized Ductal Arch: Visualized SVC: Visualized Cardiac Compton: Visualized Diaphragm: Visualized 3 Vessel View: Visualized [...] who have questions, please contact the health post acute care nurse practitioner that requested your imaging first. Eva Lawson, Manager Aviation Electronically Signed Final Report 03/23/2022 03:26 pm Marbella Musa CNM [facility] OB ORDERABLES documented in this encounter Visit Diagnoses Diagnosis Family history of congenital anomalies , unspecified gestational age Irritable bowel syndrome complicating , second trimester documented in this encounter Care Teams Coding And Reimbursement Specialist Relationship Specialty Start Date End Date Unknown None PCP - General 02/20/22 documented as of this encounter
--- OUTSIDE RECORDS SUMMARY | 2024-04-01 13:11 | XMS_ITS | Encounter Summary ---
Author Organization [facility] Address [facility] [place] [address] Care Team Providers Care Party Chief Name Role Phone Carito Brown APRN Primary Care Provider [phone]- [phone] Encounter Details Date Type Department Care Team (Late st Contact Info) Description 12/28/2012 10:32 AM EDT - 12/28/2012 11:59 PM EDT Hospital Encounter XRay at [address] [place] [address] Constipation Social History Tobacco Use Types Packs/Day [...] within the rectal vault. ??There are 5 eau-zqf-xopormx lumbar type vertebral bodies in the right [...] material within therectal vault. There are 5 dba-eur-rushhau lumbar type vertebral bodies in theright and [...] constipation documented in this encounter Care Teams Party Chief Relationship Specialty Start Date End Date Carito Brown, MULTILITH OPERATOR [address] [place] [address] PCP - General 11/13/12 01/24/22 documented as of this encounter
--- OUTSIDE RECORDS SUMMARY | 2024-04-01 13:11 | XMS_ITS | Encounter Summary ---
Author Organization [facility] [place] [address] Care Team Providers Care Manufacturing Project Engineer Name Role Phone Carito Brown APRN Primary Care Provider [phone]- [phone] Reason for Visit * Reason Comments Abdominal Pain Constipation Encounter Details Date Type Department Care Team (Latest Contact Info) Description 12/28/2012 9:30 AM EDT Office Visit [place] [address] Kim Hoover MD [facility] [place] [address] Constipation (Primary Dx) Discharge Disposition: Home Social [...] in the past. Frequent vaginal yeast infections. [place] a bit tired for a year. She [...] progress. Mother's work number, . Cell is [phone]. documented in this encounter Plan of Treatment [...] within the rectal vault. ??There are 5 aya-oqq-xyaceld lumbar type vertebral bodies in the right [...] material within therectal vault. There are 5 neq-vud-srstgrx lumbar type vertebral bodies in theright and [...] constipation documented in this encounter Care Teams Manufacturing Project Engineer Relationship Specialty Start Date End Date Carito Brown, CONCRETE ENGINEER [address] [place] [address] PCP - General 11/13/12 01/24/22 documented as of this encounter
--- OUTSIDE RECORDS SUMMARY | 2024-04-01 13:11 | XMS_ITS | Encounter Summary ---
Author Organization [facility] [place] [address] Care Team Providers Care Tool And Die Maker Level Five Name Role Phone Carito Brown APRN Primary Care Provider +1- [phone] Reason for Visit * Reason Comments Follow-up Encounter Details Date Type Department Care Team (Latest Contact Info) Description 03/13/2013 10:00 AM EDT Follow-Up [place] [address] Kim Hoover MD [facility] [place] [address] Constipation (Primary Dx); Weight loss Discharge Disposition: [...] Hoover MD CHEMISTRY ORDERABLES Performing Organization Address [facility] de Phone Number CERNER MILLENNIUM * Sedimentation rate (03/13/2013 11:00 AM EDT) Sedimentation Rate Automated 7 0 - 20 mm/hr CERNER MILLENNIUM Blood specimen (specimen) 03/13/2013 11:00 AM EDT 03/13/2013 11:06 AM EDT Narrative Resulting Agency Comment Spec In Lab Kim Hoover MD HEMATOLOGY ORDERABLE S Performing Organization Address [facility] de Phone Number CERJOYCE TAVARESIUM [...] Hoover MD CHEMISTRY ORDERABLES Performing Organization Address [facility] Co de Phone Number CERNER MILLENNIUM * [...] MD HEMATOLOGY ORDERABLE S Performing Organization Address City/[facility]/ZIP Co de Phone Number ISAC GAR documented in this encounter Visit Diagnoses Diagnosis Constipation- Primary Unspecified constipation Weight loss Loss of weight documented in this encounter Care Teams Tool And Die Maker Level Five Relationship Specialty Start Date End Date Carito Brown, BUSINESS ENGLISH INSTRUCTOR [address] [place] [address] PCP - General 11/13/12 01/24/22 documented as of this encounter
--- OUTSIDE RECORDS SUMMARY | 2024-04-01 13:11 | XMS_ITS | Encounter Summary ---
Author Organization [facility] Address [address] [place] [address] Care Team Providers Care Vegetable Trimmer Name Role Phone Unavailable Primary Care Provider Unavailabl e Encounter Details Date Type Department Care Team (Late st Contact Info) Description 01/22/2022 Lab Requisition [facility] Pathology & Laboratory Medicine - [facility] [address] [place] [address] Outr Resulting Lab, Provider Social History Tobacco [...] Generation Negative Negative 01/23/2022 9:[address] [facility] Comment:If acute HIV-1 infec tion is suspected in a high risk patient, submit plasma specimen for HIV-1 RNA quantitation test. Blood VENOUS BLOOD / Unknown 01/22/2022 10:36 EDT 01/22/2022 17:[address] [facility] - 01/23/2022 9:19 EDT Fourth Generation assay performed on the Siemens Centaur XPT. Provider Outr Resulting Lab IMMUNOLOGY A ND SEROLOGY ORDERABLES [facility] [address] [place] [id number] documented in this encounter Visit Diagnoses Not on filedocumented in this encounter
--- OUTSIDE RECORDS SUMMARY | 2024-04-01 13:11 | XMS_ITS | Encounter Summary ---
Author Organization [facility] [place] [address] Care Team Providers Care Computer Animator Name Role Phone Kevin Carito Bryant APRN Primary Care Provider +1- [phone] Reason for Visit * Reason Onset Date Comments Constipation 01/18/2013 Encounter Details Date Type Department Care Team (Late st Contact Info) Description 01/18/2013 Telephone [place] [address] Kim Hoover MD [facility] [place] [address] Constipation Social History Tobacco Use Types Packs/Day [...] on filedocumented in this encounter Care Teams Computer Animator Relationship Specialty Start Date End Date Carito Brown, CRYSTALIZER [address] [place] [address] PCP - General 11/13/12 01/24/22 documented as of this encounter
--- OUTSIDE RECORDS SUMMARY | 2024-04-01 13:11 | XMS_ITS | Encounter Summary ---
Author Organization [facility] Address [address] [place] [address] Care Team Providers Care Psychological Assistant Name Role Phone Unavailable Primary Care Provider Unavailabl e Encounter Details Date Type Department Care Team (Late st Contact Info) Description 01/22/2022 Lab Requisition [facility] Pathology & Laboratory Medicine - [facility] [address] [place] [address] Outr Resulting Lab, Provider Social History Tobacco [...] Surface Ag Negative Negative 01/25/2022 10:08 EDT [facility] Blood VENOUS BLOOD / Unknown 01/22/2022 10:36 EDT 01/22/2022 17:36 EDT Provider Outr Resulting Lab CHEMISTRY & BLOOD GAS ORDERABLES [facility] [address] [place] [address] * HEPATITIS C AB W REFLEX TO HCV RNA BY PCR (01/22/2022 10:36 EDT) Hep C Antibody Negative Negative 01/25/2022 10:47 EDT [facility] Blood VENOUS BLOOD / Unknown 01/22/2022 10:36 EDT 01/22/2022 17:36 EDT Provider Outr Resulting Lab CHEMISTRY & BLOOD GAS ORDERABLES [facility] [address] [place] [address] documented in this encounter Visit Diagnoses Not on filedocumented in this encounter
--- OUTSIDE RECORDS SUMMARY | 2024-04-01 13:11 | XMS_ITS | Encounter Summary ---
Author Organization [facility] [place] [address] Care Team Providers Care Welder Production Line Gas Name Role Phone Unknown Primary Care Provider Unavailabl e Reason for Visit * Reason Comments Ultrasound Encounter Details Date Type Department Care Team (Late st Contact Info) Description 03/23/2022 3:00 PM EDT Office Visit Obstetrics [place] [address] Eva Lawson MD [facility] [address] OBSTETRICS [place] [address] Family history of defect Social History Tobacco [...] evaluation and genetic counseling with [facility] The patient reports that this has been [...] a significantly increased genetic risk. Meds: (PNV,calcium 28-[id number] acid), aspirin EC, bisacodyl EC, docusate sodium, [...] anomalies documented in this encounter Care Teams Welder Production Line Gas Relationship Specialty Start Date End Date Unknown None PCP - General 02/20/22 documented as of this encounter
--- OUTSIDE RECORDS SUMMARY | 2024-04-01 13:11 | XMS_ITS | Encounter Summary ---
Author Organization [facility] [place] [address] Care Team Providers Care Cattle Broker Name Role Phone Carito Brown APRN Primary Care Provider +1- [phone] Encounter Details Date Type Department Care Team (Late st Contact Info) Description 03/19/2013 External Results XRay at [address] [place] [address] Provider, Scanning Social History Tobacco Use Types [...] on filedocumented in this encounter Care Teams Cattle Broker Relationship Specialty Start Date End Date Carito Brown APRN [address] [place] [address] PCP - General 11/13/12 01/24/22 documented as of this encounter
--- OUTSIDE RECORDS SUMMARY | 2024-04-01 13:11 | XMS_ITS | Encounter Summary ---
Author Organization [facility] Address [address] [place] [address] Care Team Providers Care Dye Automation Operator Name Role Phone Unavailable Primary Care Provider Unavailabl e Encounter Details Date Type Department Care Team (Late st Contact Info) Description 01/22/2022 Lab Requisition [facility] Pathology & Laboratory Medicine - [facility] [address] [place] [address] Outr Resulting Lab, Provider Social History Tobacco [...] 10:36 EDT) Hold Hold 01/22/2022 18:45 EDT [facility] Blood VENOUS BLOOD / Unknown 01/22/2022 10:36 EDT 01/22/2022 17:37 EDT Provider Outr Resulting Lab LAB INFO SER VICE AND SUPPORT & PHONE RESULT [facility] [address] [place] [address] * HOLD SST (01/22/2022 10:36 EDT) Hold Hold 01/22/2022 18:45 EDT [facility] Blood VENOUS BLOOD / Unknown 01/22/2022 10:36 EDT 01/22/2022 17:37 EDT Provider Outr Resulting Lab LAB INFO SER VICE AND SUPPORT & PHONE RESULT Performing Organization Address City/[facility] Co de Phone Number [facility] [address] [place] [address] * VARICELLA IGG ANTIBODY (01/22/2022 10:36 EDT) Varicella IgG Ab Positive See Note 01/25/2022 10:08 EDT [facility] Comment:Presence of detectab le Varicella Zoster virus IgG antibodies. Blood VENOUS BLOOD / Unknown 01/22/2022 10:36 EDT 01/22/2022 17:36 EDT Provider Outr Resulting Lab IMMUNOLOGY A ND SEROLOGY ORDERABLES Performing Organization Address [facility]/ZIP Co de Phone Number [facility] [address] [place] [address] * RUBELLA IGG ANTIBODY (01/22/2022 10:36 EDT) Rubella IgG Ab Positive See Note 01/25/2022 10:09 EDT [facility] Comment:Positive for IgG ant ibodies to Rubella virus. Blood VENOUS BLOOD / Unknown 01/22/2022 10:36 EDT 01/22/2022 17:36 EDT Provider Outr Resulting Lab CHEMISTRY & BLOOD GAS ORDERABLES Performing Organization Address [facility] Co de Phone Number [facility] [address] [place] [address] documented in this encounter Visit Diagnoses Not on filedocumented in this encounter
--- OUTSIDE RECORDS SUMMARY | 2024-04-01 13:11 | XMS_ITS | Referral Summary ---
Author Organization [facility] Address [address] [place] [address] Care Team Providers Care Laborer/Grade Check Name Role Phone Unavailable Primary Care Provider [...] C Antibody Negative Negative 01/25/2022 10:47 EDT [facility] Blood VENOUS BLOOD / Unknown 01/22/2022 10:36 EDT 01/22/2022 17:36 EDT Provider Outr Resulting Lab CHEMISTRY & BLOOD GAS ORDERABLES [facility] [address] [place] [address] from Last 3 Months or Most Recently Relevant to Health Maintenance
--- OUTSIDE RECORDS SUMMARY | 2024-04-01 13:11 | XMS_ITS | Clinical Summary ---
Author Organization [facility] Address [address] [place] [address] Care Team Providers Care Communications Administrator Name Role Phone Unavailable Primary Care [...] Antibody Negative Negative 01/25/2022 10:47 EDT [facility] Blood VENOUS BLOOD / Unknown 01/22/2022 10:36 EDT 01/22/2022 17:36 EDT Provider Outr Resulting Lab CHEMISTRY & BLOOD GAS ORDERABLES [facility] [address] [place] [address] from Last 3 Months or Most Recently Relevant to Health Maintenance
--- OUTSIDE RECORDS SUMMARY | 2024-04-01 13:11 | XMS_ITS | Encounter Summary ---
Author Organization [facility] [place] [address] Care Team Providers Care Sap Solutions Architect Name Role Phone Carito Brown APRN Primary Care Provider +1- [phone] Encounter Details Date Type Department Care Team (Late st Contact Info) Description 03/18/2013 Telephone Pediatric [place] [address] Kim Hoover MD [facility] [place] [address] Social History Tobacco Use Types Packs/Day Years [...] on filedocumented in this encounter Care Teams Sap Solutions Architect Relationship Specialty Start Date End Date Carito Brown APRN [address] [place] [address] PCP - General 11/13/12 01/24/22 documented as of this encounter
--- OUTSIDE RECORDS SUMMARY | 2024-04-01 13:11 | XMS_ITS | Encounter Summary ---
[place] [address] Care Team Providers Care Energy Economist Name Role Phone Luiza Cole APRN Primary Care Provider Reason for Referral * Consultation (Routine) - Closed Specialty Diagnoses / Procedures Referred By Kt t Referred To Contact Obstetrics and Gynecology Diagnoses Family history of other congenital malformations, deformations and chromosomal abnormalities Encounter for supervision of normal , unspecified, unspecified trimester Irritable bowel syndrome, unspecified Marbella Musa CNM [address] [place] [address] [address] [place] [address] [facility] Customer Support Executive [address] [place] [phone] Referral ID Status Reason Start Date Expiration Date V isits Requested Visits Authorized [id number] Closed Consult, Test & Treat PCP Updated and/or Approved 01/25/2022 01/25/2023 2 2 Encounter Details Date Type Department Care Team (Late st Contact Info) Description 01/25/2022 Transcribe Orders eDH Incoming Referrals [phone] Marbella Musa CNM [address] [place] [address] [address] [place], [place] [id number] Family history of congenital anomalies Social History [...] anomalies documented in this encounter Care Teams Energy Economist Relationship Specialty Start Date End Date Luiza Cole APRN [address] [place] [address] [address] [place] [address] PCP - General Family Medicine 01/25/22 02/19/22 documented as of this encounter
--- OUTSIDE RECORDS SUMMARY | 2024-04-01 13:11 | XMS_ITS | Encounter Summary ---
Author Organization [facility] Address [address] [place] [address] Care Team Providers Care Return Agent Airport Name Role Phone Unavailable Primary Care Provider Unavailabl e Encounter Details Date Type Department Care Team (Late st Contact Info) Description 02/25/[address] [facility] Pathology & Laboratory Medicine - [facility] [address] [place] [address] Outr Resulting Lab, Provider Social History Tobacco [...] gonorrhoeae Result Negative Negative 02/26/2022 15:08 EDT [facility] Chlamydia trachomatis Result Positive(A) Negative 02/26/2022 15:08 EDT [facility] Urine URINE / Unknown 02/24/2022 1 5:05 EDT 02/25/2022 19:03 EDT Narrative [facility] - 02/26/2022 15:08 EDT A first catch urine specimen is acceptable for detection of Gonorrhea and Chlamydia, but might detect up to 10% fewer infections when compared with vaginal and endocervical swab samples. Provider Outr Resulting Lab MICROBIOLOGY - GENERAL ORDERABLES [facility] [address] [place] [address] documented in this encounter Visit Diagnoses Not on filedocumented in this encounter
--- OUTSIDE RECORDS SUMMARY | 2024-04-01 13:11 | XMS_ITS | Clinical Summary ---
Author Organization [facility] Address [facility] [place] [address] Care Team Providers Care Printed Circuit Board Designer Name Role Phone Unknown Primary Care Provider [...] - Influenza standard series) 01/29/2024 Care Teams Printed Circuit Board Designer Relationship Specialty Start Date End Date Unknown None PCP - General 02/20/22
--- OUTSIDE RECORDS SUMMARY | 2024-04-01 13:11 | XMS_ITS | Encounter Summary ---
Author Organization [facility] [place] [address] Care Team Providers Care Facilities Maintenance Technician Name Role Phone Carito Brown SURVEY RESEARCH MANAGER Primary Care Provider +1- [phone] Encounter Details Date Type Department Care Team (Late st Contact Info) Description 03/25/2013 Telephone [place] [address] Kim Hoover MD [facility] [place] [address] Social History Tobacco Use Types Packs/Day Years [...] on filedocumented in this encounter Care Teams Facilities Maintenance Technician Relationship Specialty Start Date End Date Carito Brown, SURVEY RESEARCH MANAGER [address] [place] [address] PCP - General 11/13/12 01/24/22 documented as of this encounter
--- OUTSIDE RECORDS SUMMARY | 2024-04-01 13:11 | XMS_ITS | Encounter Summary ---
Author Organization [facility] Address [facility] [place] [address] Care Team Providers Care Biology Tutor Name Role Phone KevinCarito Annette HARRIS Primary Care Provider +1- [phone] Encounter Details Date Type Department Care Team (Late st Contact Info) Description 03/16/2013 Orders Only Pediatric [place] [address] Kim Hoover MD [facility] [place] [address] Social History Tobacco Use Types Packs/Day Years [...] EDT) 03/16/2013 6:40 AM EDT Narrative [facility] - 01/23/2014 4:47 PM EDT This is a non-reportable exam. Procedure Note Andrew Dutton - 01/23/2014 This is a non-reportable exam. Kim Hoover MD [facility] [place] FILM LIBRARY ORD ERABLES [facility] [address] [facility] [place] [address] documented in this encounter Visit Diagnoses Not on filedocumented in this encounter Care Teams Biology Tutor Relationship Specialty Start Date End Date Carito Brown, AIR BRAKE OPERATOR [address] [place] [address] PCP - General 11/13/12 01/24/22 documented as of this encounter
--- OUTSIDE RECORDS SUMMARY | 2024-04-01 13:11 | XMS_ITS | Encounter Summary ---
[place] [address] Care Team Providers Care Rodeo Rider Name Role Phone Unknown Primary Care Provider Unavailabl e Reason for Visit * Reason Comments Family History Cleft lip * Consultation (Routine) - Closed Specialty Diagnoses / Procedures Referred By Kt jj Referred To Contact Obstetrics and Gynecology Diagnoses Family history of other congenital malformations, deformations and chromosomal abnormalities Encounter for supervision of normal , unspecified, unspecified trimester Irritable bowel syndrome, unspecified Marbella Musa[address] [place] [address] [facility] Classification Clerk [address] [place] [address] Referral ID Status Reason Start Date Expiration Date V isits Requested Visits Authorized [id number] Closed Consult, Test & Treat PCP Updated and/or Approved 01/25/2022 01/25/2023 2 2 Encounter Details Date Type Department Care Team ([facility] Contact Info) Description 03/23/2022 1:00 PM EDT Office Visit Obstetrics [place] [address] Walter Leigh, [facility] OBSTETRICS & [place] [address] Encounter for procreative genetic counseling [...] this encounter Progress Notes * Walter Leigh, [facility] - 03/23/2022 1:00 PM EDT Reproductive Genetics Nayeli Wright is a 26 y.o. female currently at 20w5d gestation. I met with Nayeli for a 50-minute office visit at the [facility]. She was accompanied by her partner, Abdelrahman. Referring Provider: Marbella Musa CNM [address] [place] [address] [place] [address] Chief Concern Patient presents with ??? Family History Cleft lip Patient History Past Medical History: Diagnosis Date ??? ADHD ??? Depression ??? Irritable bowel syndrome with constipation Ancestry: [place], [place] Partner History Name: Abdelrahman Sam : 1995 Sex: Male Medical History: Cleft lip Ancestry: [place] Family History Family History Problem (# of [...] counseling documented in this encounter Care Teams Rodeo Rider Relationship Specialty Start Date End Date Unknown None PCP - General 02/20/22 documented as of this encounter
--- OUTSIDE RECORDS SUMMARY | 2024-04-01 13:11 | XMS_ITS | Encounter Summary ---
[place] [address] Care Team Providers Care Telephonic Case Manager Name Role Phone Unknown Primary Care Provider [...] on filedocumented in this encounter Care Teams Telephonic Case Manager Relationship Specialty Start Date End Date Unknown None PCP - General 02/20/22 documented as of this encounter
[2024-04-01] MEDS: MAGNESIUM SULFATE 1 GM/100 ML BAG IV_INF ×2 (13:41→23:33)
--- NOTE | 2024-04-01 14:24 | W.PC.ACHO ---
Registration Status: Primary Language: Preferred Language: ED Information & Data Chief Complaint Abd Prob 04/01/24 00:17 Chief Complaint Abd Prob 04/01/24 00:12 Triage Note Pt c/o generalized abd pain 04/01/24 00:12 that started 3 hours ago. Pt states she became nauseous at 0900 this morning by denied vomiting at that time. Pt states she has been belching and vomiting for the past 2 hours. Pt describes pain as cramping, burning, constant . Pt states she is 9 weeks - confirmed by PCP. Pt took 500mg tylenol at [address] and 'way to many tums'. Normal BM, last today. Pt is just completed last day of tx for vaginal yeast infection yesterday. No spotting reported. No other urinary s/s. Denies CP/SOB , h/a, fever, chills, lightheadedness. Medical / Surgical History (Last Reviewed 04/01/24 @ 12:53 by Stephanie Fernando DO) Irritable bowel syndrome with constipation ADHD (attention deficit hyperactivity disorder) Major depressive disorder (Last Reviewed 04/01/24 @ 12:53 by Stephanie Fernando DO) No pertinent past surgical history Most Recent Vital Signs Temperature 36.5 C 04/01/24 14:10 Temperature Source Temporal Artery Scan 04/01/24 00:12 Pulse 80 04/01/24 14:10 Respiratory Rate 18 04/01/24 14:10 Respiratory Effort Normal, Non-Labored 04/01/24 14:10 Respiratory Depth Normal 04/01/24 14:10 Respiratory Pattern Normal 04/01/24 14:10 Blood Pressure 106/66 04/01/24 14:10 Blood Pressure Mean 77 04/01/24 12:30 Blood Pressure Position Supine 04/01/24 06:05 Pulse Oximetry 100 04/01/24 14:10 Oxygen Delivery Method Room Air 04/01/24 14:10 Oxygen Flow Rate 0 04/01/24 14:10 Pain Level 1 04/01/24 14:10 Allergies hydrocodone (From Vicodin) Adverse Reaction (Verified 04/01/24 00:23) Nausea makes her pass out Active Medications Generic Name Dose Route Start Last Admin Trade Name Freq PRN Reason Stop Dose Admin Piperacillin Sod/Tazobactam 50 mls @ 100 mls/hr 04/01/24 12:00 04/01/24 12:37 Sod 3.375 gm/ Sodium Chloride IVPB 100 mls/hr Q6H PAULINA Administration Metoclopramide HCl 10 mg 04/01/24 04:27 04/01/24 04:42 Metoclopramide 10 Mg/2 Ml Vial IVP 10 mg Q6H PRN PRN Administration Morphine Sulfate 2 mg 04/01/24 04:27 04/01/24 04:42 Morphine 10 Mg/Ml Vial IVP 2 mg DIRECTED PRN Administration IV IV Catheter Type [Left Saline Lock Antecubital] IV Catheter Gauge [Left 20 Antecubital] Diet Orders Category Date Time Status Nothing Per Oral [DIET] Nutrition 04/01/24 Lunch Active npo [Nothing Per Oral] [DIET] Nutrition 04/01/24 Breakfast Active Diagnostics 04/01/24 04/01/24 04/01/24 Range/Units Unknown 09:12 01:20 EST WBC 13.61 H (4.4-10.8) 10^3/uL RBC 4.06 (3.93-5.22) 10^6/uL Hgb 12.7 (11.2-15.7) g/dL Hct 37.1 (36.0-46.0) % MCV 91 (80-95) fL MCH 31.3 (27.0-33.0) pg MCHC 34.2 (32.0-36.0) % RDW 12.6 (11.7-14.6) % Plt Count (130-400) 10^3/uL MPV (8.0-11.0) fL Immature Gran % 0.3 % Neutrophils % 81.4 % Lymphocytes % 11.6 % Monocytes % 6.5 % Eosinophils % 0.1 % Basophils % 0.1 % Nucleated RBC % 0.0 (0.0-0.3) % Absolute Neutrophils 11.08 H (1.2-6.7) 10^3/uL Absolute Lymphocytes 1.58 (1.2-3.4) 10^3/uL Absolute Monocytes 0.88 H (0.1-0.8) 10^3/uL Absolute Eosinophils 0.01 (0.0-0.7) 10^3/uL Absolute Basophils 0.01 (0.0-0.2) 10^3/uL Sodium (136-145) mmol/L Potassium (3.5-5.1) mmol/L Chloride (98-107) mmol/L Carbon Dioxide (21.0-32.0) mmol/L Anion Gap (3-11) mmol/L BUN (7-18) mg/dL Creatinine (0.55-1.02) mg/dL Est GFR (CKD-EPI 2020) (mL/min/1.73m2) Glucose (74-106) mg/dL Calcium (8.5-10.1) mg/dL Total Bilirubin (0.2-1.0) mg/dL AST (15-37) U/L ALT (14-59) U/L Alkaline Phosphatase (46-116) U/L Total Protein (6.4-8.2) g/dL Albumin (3.4-5.0) g/dL Lipase (16-77) U/L Urine Color Yellow (Yellow) Urine Clarity Clear (Clear) Urine pH 6.5 (5-8) Ur Specific Atkins >= 1.030 H (1.005-1.025) Urine Protein 30 H (Neg-Trace) mg/dL Urine Ketones 80 H (Negative) mg/dL Urine Blood Negative (Negative) Urine Nitrite Negative (Negative) Urine Bilirubin Negative (Negative) Urine Urobilinogen 0.2 (Up to 0.2) mg/dL Ur Leukocyte Esterase Negative (Negative) Urine RBC Negative (0-2) HPF Urine WBC Negative (0-5) HPF Ur Epithelial Cells Moderate (Negative) HPF Urine Crystals Negative (Negative) HPF Urine Bacteria Rare (Negative) HPF Urine Casts Negative (Negative) LPF Urine Mucus Trace (Negative) Ur Culture Indicated? No Urine Glucose Negative (Negative) mg/dL Add-On Test Request Cancelled 04/01/24 Range/Units 00:21 WBC 15.28 H (4.4-10.8) 10^3/uL RBC 4.25 (3.93-5.22) 10^6/uL Hgb 13.6 (11.2-15.7) g/dL Hct 38.6 (36.0-46.0) % MCV 91 (80-95) fL MCH 32.0 (27.0-33.0) pg MCHC 35.2 (32.0-36.0) % RDW 12.7 (11.7-14.6) % Plt Count 211 (130-400) 10^3/uL MPV 12.4 H (8.0-11.0) fL Immature Gran % 0.3 % Neutrophils % 86.1 % Lymphocytes % 9.1 % Monocytes % 4.3 % Eosinophils % 0.1 % Basophils % 0.1 % Nucleated RBC % 0.0 (0.0-0.3) % Absolute Neutrophils 13.16 H (1.2-6.7) 10^3/uL Absolute Lymphocytes 1.39 (1.2-3.4) 10^3/uL Absolute Monocytes 0.66 (0.1-0.8) 10^3/uL Absolute Eosinophils 0.02 (0.0-0.7) 10^3/uL Absolute Basophils 0.02 (0.0-0.2) 10^3/uL Sodium 141 (136-145) mmol/L Potassium 3.6 (3.5-5.1) mmol/L Chloride 105 (98-107) mmol/L Carbon Dioxide 23.5 (21.0-32.0) mmol/L Anion Gap 12.5 H (3-11) mmol/L BUN 8 (7-18) mg/dL Creatinine 0.7 (0.55-1.02) mg/dL Est GFR (CKD-EPI 2020) 121.49 (mL/min/1.73m2) Glucose 107 H (74-106) mg/dL Calcium 9.7 (8.5-10.1) mg/dL Total Bilirubin 0.36 (0.2-1.0) mg/dL AST 17 (15-37) U/L ALT 25 (14-59) U/L Alkaline Phosphatase 46 (46-116) U/L Total Protein 7.4 (6.4-8.2) g/dL Albumin 4.2 (3.4-5.0) g/dL Lipase 32 (16-77) U/L Urine Color (Yellow) Urine Clarity (Clear) Urine pH (5-8) Ur Specific Atkins (1.005-1.025) Urine Protein (Neg-Trace) mg/dL Urine Ketones (Negative) mg/dL Urine Blood (Negative) Urine Nitrite (Negative) Urine Bilirubin (Negative) Urine Urobilinogen (Up to 0.2) mg/dL Ur Leukocyte Esterase (Negative) Urine RBC (0-2) HPF Urine WBC (0-5) HPF Ur Epithelial Cells (Negative) HPF Urine Crystals (Negative) HPF Urine Bacteria (Negative) HPF Urine Casts (Negative) LPF Urine Mucus (Negative) Ur Culture Indicated? Urine Glucose (Negative) mg/dL Add-On Test Request Intake and Output - 24 Hour Total 04/01/24 00:11 thru 04/01/24 14:10 Intake Total 2215 Balance 2215 Weight 72.57 kg Intake: IV 2215 Falls Risk Assessment History of Falls No History 04/01/24 14:10 Contributing Factors No Factors 04/01/24 14:10 Ambulatory Aids Independent 04/01/24 14:10 Tubes/Lines W/no contributing factors 04/01/24 14:10 Gait Evaluation No gait disturbance 04/01/24 14:10 Cognition No cognitive impairment 04/01/24 14:10 Fall Total Score 10 04/01/24 14:10 Level of Risk Standard/Low Risk 04/01/24 14:10 Problems (Last Reviewed 04/01/24 @ 12:53 by Stephanie Fernando DO) Leukocytosis (leucocytosis) (Acute) Abdominal pain during intrauterine (Acute) Abdominal pain, right lower quadrant (Acute) v v v v v v v v v Sending and/or Receiving Nurses: Please use comment section below to note any information pertinent to the patient hand-off not included above. Information / Comments: Report received from: OTONIEL Gimenez RN
[2024-04-01] MEDS: DEXTROSE 5%-0.45% SALINE 1,000 ML 100 ML IV (15:09)
[2024-04-01] MEDS: Heparin 5,000 UNITS/ML VIAL 5000 UNITS SC (18:23)
--- NOTE | 2024-04-01 20:08 | PGE_ITS ---
Date of Service Date of service: 04/01/24 Time of Service: 20:08 Exam Narrative Exam Narrative: Patient is seen and examined: they are doing better than this am. THey have : no headaches. No CP or SOB. no productive cough. no dysuria. no leg pain or swelling. She has been able to get up to the bathroom and has been urinating clear. She will occasionally have a small twinge but for the most part her pain is pretty much resolved and is maybe a 1 or 2. She was hungry and was able to eat a little bit of toast and some vegetable soup. No N/V She has minimal tenderness in the right lower quadrant currently. labs are pd. She has had no bleeding spotting or discharge vaginally. Continue with conservative medical management Objective Last Vital Signs Temp 37.0 C 04/01/24 15:20 Pulse 74 04/01/24 15:20 Resp 18 04/01/24 15:20 BP 106/60 04/01/24 15:20 Pulse Ox 99 04/01/24 15:20 Laboratory Results - last 24 hr 04/01/24 04/01/24 04/01/24 00:21 01:20 EST 09:12 WBC 15.28 H 13.61 H RBC 4.25 4.06 Hgb 13.6 12.7 Hct 38.6 37.1 MCV 91 91 MCH 32.0 31.3 MCHC 35.2 34.2 RDW 12.7 12.6 Plt Count 211 MPV 12.4 H Immature Gran % 0.3 0.3 Neutrophils % 86.1 81.4 Lymphocytes % 9.1 11.6 Monocytes % 4.3 6.5 Eosinophils % 0.1 0.1 Basophils % 0.1 0.1 Nucleated RBC % 0.0 0.0 Absolute Neutrophils 13.16 H 11.08 H Absolute Lymphocytes 1.39 1.58 Absolute Monocytes 0.66 0.88 H Absolute Eosinophils 0.02 0.01 Absolute Basophils 0.02 0.01 Sodium 141 Potassium 3.6 Chloride 105 Carbon Dioxide 23.5 Anion Gap 12.5 H BUN 8 Creatinine 0.7 Est GFR (CKD-EPI 2020) 121.49 Glucose 107 H Calcium 9.7 Total Bilirubin 0.36 AST 17 ALT 25 Alkaline Phosphatase 46 Total Protein 7.4 Albumin 4.2 Lipase 32 Urine Color Yellow Urine Clarity Clear Urine pH 6.5 Ur Specific [place] >= 1.030 H Urine Protein 30 H Urine Ketones 80 H Urine Blood Negative Urine Nitrite Negative Urine Bilirubin Negative Urine Urobilinogen 0.2 Ur Leukocyte Esterase Negative Urine RBC Negative Urine WBC Negative Ur Epithelial Cells Moderate Urine Crystals Negative Urine Bacteria Rare Urine Casts Negative Urine Mucus Trace Ur Culture Indicated? No Urine Glucose Negative Add-On Test Request 04/01/24 Unknown WBC RBC Hgb Hct MCV MCH MCHC RDW Plt Count MPV Immature Gran % Neutrophils % Lymphocytes % Monocytes % Eosinophils % Basophils % Nucleated RBC % Absolute Neutrophils Absolute Lymphocytes Absolute Monocytes Absolute Eosinophils Absolute Basophils Sodium Potassium Chloride Carbon Dioxide Anion Gap BUN Creatinine Est GFR (CKD-EPI 2020) Glucose Calcium Total Bilirubin AST ALT Alkaline Phosphatase Total Protein Albumin Lipase Urine Color Urine Clarity Urine pH Ur Specific [place] Urine Protein Urine Ketones Urine Blood Urine Nitrite Urine Bilirubin Urine Urobilinogen Ur Leukocyte Esterase Urine RBC Urine WBC Ur Epithelial Cells Urine Crystals Urine Bacteria Urine Casts Urine Mucus Ur Culture Indicated? Urine Glucose Add-On Test Request Cancelled Time Spent with Patient Time Spent with Patient: 25-34 minutes Time was spent: preparing to see the patient(eg.review tests), obtaining and/or reviewing separately otained hiistory, ordering medications,tests, procedures, referring, communicating with other health wound care physician, indepentently interpreting results, counseling the patient, care coordination and other
[2024-04-01 20:57] LABS: Abs Immature Grans 0.03 10^3/uL (0.0-0.06); Absolute Basophil Count 0.03 10^3/uL (0.0-0.2); Absolute Eosinophil Count 0.05 10^3/uL (0.0-0.7); Absolute Lymphocyte Count 1.88 10^3/uL (1.2-3.4); Absolute Monocyte Count 0.83 10^3/uL (0.1-0.8); Absolute Neutrophil Count 7.07 10^3/uL (1.2-6.7); Basophils % 0.3 %; Eosinophils % 0.5 %; HCT 33.2 % (36.0-46.0); HGB 11.5 g/dL (11.2-15.7); Immature Grans % 0.3 %; MCH 31.3 pg (27.0-33.0); MCHC 34.6 % (32.0-36.0); MCV 91 fL (80-95); Monocytes % 8.4 %; Neutrophils % 71.5 %; RBC 3.67 10^6/uL (3.93-5.22); RDW 12.8 % (11.7-14.6); RDW-SD 42.3 fL; WBC 9.89 10^3/uL (4.4-10.8)
[2024-04-01 21:10] LABS: BUN 5 mg/dL (7-18); C-Reactive Protein 0.71 mg/dL (<or=0.5); CO2 22.7 mmol/L (21.0-32.0); CREATININE 0.6 mg/dL (0.55-1.02); Calcium 8.7 mg/dL (8.5-10.1); Estimated GFR 126.09 (mL/min/1.73m2); Glucose 129 mg/dL (74-106); Magnesium 1.7 mg/dL (1.8-2.4)
[2024-04-01 21:16] LABS: Anion Gap 11.3 mmol/L (3-11); Chloride 107 mmol/L (98-107); Potassium 3.3 mmol/L (3.5-5.1); Sodium 141 mmol/L (136-145)
[2024-04-01 22:13] LABS: Procalcitonin < 0.1 ng/mL
[2024-04-01] MEDS: Potassium Chloride Liquid 20 MEQ PKT PO (23:33)
[2024-04-02] VITALS (8 sets, daily range): BP systolic 95–102; BP diastolic 58–67; PULSE 65–107; RESP 15–17; TEMP 36.7–37.2; O2SAT 97–100
[2024-04-02] MEDS: PIPERACILLIN/TAZO 3.375 GM in Normal Saline 50 ML IVPB ×3 (01:18→13:34)
[2024-04-02] MEDS: DEXTROSE 5%-0.45% SALINE 1,000 ML 100 ML IV (02:51)
[2024-04-02 06:50] LABS: Abs Immature Grans 0.01 10^3/uL (0.0-0.06); Absolute Basophil Count 0.03 10^3/uL (0.0-0.2); Absolute Eosinophil Count 0.11 10^3/uL (0.0-0.7); Absolute Lymphocyte Count 1.88 10^3/uL (1.2-3.4); Absolute Monocyte Count 0.54 10^3/uL (0.1-0.8); Absolute Neutrophil Count 4.32 10^3/uL (1.2-6.7); Basophils % 0.4 %; Eosinophils % 1.6 %; HCT 32.7 % (36.0-46.0); HGB 11.2 g/dL (11.2-15.7); Immature Grans % 0.1 %; Lymphocytes % 27.3 %; MCH 31.2 pg (27.0-33.0); MCHC 34.3 % (32.0-36.0); MCV 91 fL (80-95); Monocytes % 7.8 %; Neutrophils % 62.8 %; RBC 3.59 10^6/uL (3.93-5.22); RDW-SD 43.3 fL; WBC 6.89 10^3/uL (4.4-10.8)
[2024-04-02 06:54] LABS: Anion Gap 8.8 mmol/L (3-11); BUN 4 mg/dL (7-18); CO2 22.2 mmol/L (21.0-32.0); CREATININE 0.5 mg/dL (0.55-1.02); Calcium 8.2 mg/dL (8.5-10.1); Chloride 109 mmol/L (98-107); Estimated GFR 131.75 (mL/min/1.73m2); Glucose 107 mg/dL (74-106); Potassium 3.8 mmol/L (3.5-5.1); Sodium 140 mmol/L (136-145)
[2024-04-02] MEDS: Normal Saline Flush 10 ML SYR IVP ×2 (08:07→20:13)
--- NOTE | 2024-04-02 09:39 | INITIAL_ITS ---
Date of service: 04/02/24 Time of Service: 09:40 Care Management Initial Assmt Initial Assessment Reason for Hospitalization: RLQ pain/ acute appendicitis. 9 weeks Functional Status/Living Situation Patient Presentation: Nayeli was sitting up in the bed, eating her lunch, when CM met with her. She had a regular diet for lunch. Nayeli was very pleasant. Her sister was also present. Nayeli stated that she is feeling much better. She had not seen the surgeon yet, and was unsure of the plan. Nayeli is still receiving IV abx, CM discussed that when she is on oral antibiotics, she will know she is on her way, and reassured her that the surgeon would be in to see her. Nayeli is 9 weeks , she came to the ER yesterday with c/o RLQ abdominal pain. Findings were equivocal for appendicitis. She discussed with the surgeon the treatment options, especially regarding her , and it was decided to treat the infection medically, as opposed to surgically. Town of Residence: [place] Resides with: Child ( Abdelrahman and 1.5yo daughter Felicia) and Spouse Significant Other/Family: Local (Nayeli's sister was present today. ) Natural Supports: family Instrumental Activities of Daily Living (ADLs): Independent Medications Medication Management: No Issues/Barriers identified Advance Directives Advance Directives: Do you have an Advance Directive: N 02/27/24 10:36 AD On File at [facility]: N 02/27/24 10:36 Date Asked 02/29/24 02/29/24 12:00 AD Date Reviewed COLST On File at [facility] COLST Date Scanned Code Status Resuscitation Status Full Code Insurance Coverage/Financial Issues Insurance: Medicaid Care Team Visit Care Team Role Provider Type Shani Gomez NP Primary Care Provider NURSE PRACTITIONER Suresh Ashley DO Emergency Provider [facility] STAFF PHYSICIAN Stephanie Fernando DO Admit Provider OSTEOPATHIC DOCTOR Attending Provider Other: [facility] Discharge Potential Discharge Needs: PCP F/U Appt, Surgical F/U Appt and Other (OB follow up) Anticipated Barriers to Discharge: None Identified (If Nayeli does not respond well to abx tx, she may need surgery) Patient/Family Education Needs: Review discharge instructions, discuss Ask Me Three Transportation: Private vehicle Plan: Anticipate that Nayeli will discharge home with no new services. She will need to f/u with her OB and her surgeon. She will continue per her plan of care and transport home with family. CM will continue to follow. PFSH All Active Problems (Updated 04/01/24 @ 12:58 by Stephanie Fernando DO) Leukocytosis (leucocytosis) (Acute) Abdominal pain during intrauterine (Acute) Abdominal pain, right lower quadrant (Acute) Medical History Irritable bowel syndrome with constipation ADHD (attention deficit hyperactivity disorder) Major depressive disorder Surgical History No pertinent past surgical history Family History Mother , 37 from suicide Depression Father Asthma Brother No problems noted. Brother Asthma Sister No problems noted. Daughter No problems noted. Maternal Grandfather No problems noted. Maternal Grandmother Breast cancer x 3 Paternal Grandfather No problems noted. Paternal Grandmother No problems noted. Social History Smoking/Tobacco Use Status: Current-Occasional Tobacco: How many years used: 2 Second Hand Exposure: Yes Smoking risk assessment performed?: Yes Alcohol Intake: current Alcohol Intake frequency: a few times a week Alcohol type: wine Drug use: Never Substance use type: does not use Counseling provided: none Caregiver/Support person: No Household members: friend(s) Housing: house Communication Needs: Corrective Lenses Do you need help understanding health information?: Never Pets and animals: Yes Pets and animals: dog(s) Sexually active: Yes Do you think of yourself as: straight/heterosexual Current gender identity: female What is your relationship status?: never How often do you talk on the phone with friends or family?: once per week Do you belong to any clubs or organized social groups?: no Panel score (0-1 are the most socially isolated patients): 0 What type of physical activity do you participate in: walking Duration: > 90 minutes/day Frequency: 3-4 times per week Chantal/Christian: None Special chantal needs: No Seatbelt use: always Helmet use: Yes Helmet use: always Drive intox or ride w/intox sweeper driver: No Do you feel safe at home: Yes Do you feel safe in your relationship?: Yes Female Reproductive History Menstrual control method: none History History 3 Para 1 Hx # Term Pregnancies 1 Multiple births 0 Hx # Pregnancies 0 Ectopic pregnancies 0 AB induced 1 Hx Number of Living Children 1 AB spontaneous 0 Past Pregnancies Del. Date GA/Weeks # Preg Succ Route Wgt Sex Labor Lgth Anesth esia Location [facility] [place] 02/27/21 10 No 08/18/22 41 No Yes vaginal 3599.822 g Female 24hrs 9min regional [facility] Delivery Date: 02/27/21 Last Updated by: Marbella Musa Elective Ab Delivery Date: 08/18/22 Last Updated by: HARLAN Reyes Readmission Within the Past 30 Days Yes or No: No SDOH(Care Management) Screening Will the Patient Participate in the Screening?: Yes Do you worry about having a steady place to live?: no Problems where you live: no known problems In the past 12 months, have you had to go without electric, gas, oil or water in your home?: no Have you or anyone in your house had to go without enough food to eat?: no Has lack of transportation kept you from medical appointments or from doing things needed for daily living?: no Has anyone in your support network made you feel unsafe for any reason?: no
--- NOTE | 2024-04-02 15:45 | RT.EKG_ITS ---
APPROVED REPORT Exam: Resting ECG Reason for Exam: flattened P waves Patient Location: I HR:69 bpm ECG Measurements Heart Rate 69 AXIS MA 133 P 30 QRSd 80 QRS 43 QT 381 T 24 QTc 408 Conclusion Sinus rhythm...normal P axis, V-rate 50- 99 RSR' in V1 or V2, probably normal variant...small R' only Normal Electrocardiogram
--- NOTE | 2024-04-02 16:02 | PGE_ITS ---
Date of Service Date of service: 04/02/24 Time of Service: 16:02 Assessment and Plan Assessment and plan (1) Abdominal pain, right lower quadrant: Status: Acute Assessment and plan: Nayeli seems to be responding favorably to antibiotics. Her white blood cell count is normalized, and she has no fevers. I will switch her over to an oral antibiotic, and advance her diet today. Assuming she feels well tomorrow, we can hopefully get her discharged home with a short course of parenteral antibiotics at home. Subjective Subjective Interval history since last seen: Kat is feeling remarkably better compared to when she presented to the emergency department. She is pain-free throughout this morning, and her appetite has come back quite a bit. Exam GI Other: Her abdomen is soft, not at all distended, and not tender. There are no masses. Objective Last Vital Signs Temp 98.6 F 04/02/24 14:56 Pulse 65 04/02/24 14:56 Resp 16 04/02/24 14:56 BP 96/60 L 04/02/24 14:56 Pulse Ox 100 04/02/24 14:56 Laboratory Results - last 24 hr 04/01/24 04/02/24 20:45 06:20 WBC 9.89 6.89 RBC 3.67 L 3.59 L Hgb 11.5 11.2 Hct 33.2 L 32.7 L MCV 91 91 MCH 31.3 31.2 MCHC 34.6 34.3 RDW 12.8 13.0 Plt Count MPV Immature Gran % 0.3 0.1 Neutrophils % 71.5 62.8 Lymphocytes % 19.0 27.3 Monocytes % 8.4 7.8 Eosinophils % 0.5 1.6 Basophils % 0.3 0.4 Nucleated RBC % 0.0 0.0 Absolute Neutrophils 7.07 H 4.32 Absolute Lymphocytes 1.88 1.88 Absolute Monocytes 0.83 H 0.54 Absolute Eosinophils 0.05 0.11 Absolute Basophils 0.03 0.03 Sodium 141 140 Potassium 3.3 L 3.8 Chloride 107 109 H Carbon Dioxide 22.7 22.2 Anion Gap 11.3 H 8.8 BUN 5 L 4 L Creatinine 0.6 0.5 L Est GFR (CKD-EPI 2020) 126.09 131.75 Glucose 129 H 107 H Calcium 8.7 8.2 L Magnesium 1.7 L 2.0 C-Reactive Protein 0.71 H Procalcitonin < 0.1 Time Spent with Patient Time Spent with Patient: 25-34 minutes Time was spent: preparing to see the patient(eg.review tests), referring, communicating with other health primary care pediatrician, indepentently interpreting results and counseling the patient
--- NOTE | 2024-04-02 16:16 | NUR.NOTE ---
Nursing Note: Surgical dept ordered an EKG d/t pt having flattened P waves on tele per the ICU. RT did EKG, which showed good P waves, Dr. Fernando notified, no new orders.
[2024-04-02] MEDS: Heparin 5,000 UNITS/ML VIAL 5000 UNITS SC (18:02)
[2024-04-02] MEDS: Psyllium PKT 1 EACH PO (20:13)
[2024-04-03 03:22] VITALS: BP 94/55; PULSE 62; RESP 16; TEMP 36.5; O2SAT 97
[2024-04-03 06:26] LABS: HCT 34.1 % (36.0-46.0); HGB 11.5 g/dL (11.2-15.7); MCH 31.2 pg (27.0-33.0); MCHC 33.7 % (32.0-36.0); MCV 92 fL (80-95); RBC 3.69 10^6/uL (3.93-5.22); RDW 12.9 % (11.7-14.6); RDW-SD 44.1 fL; WBC 8.32 10^3/uL (4.4-10.8)
[2024-04-03 07:27] VITALS: BP 100/58; PULSE 66; RESP 18; TEMP 36.2; O2SAT 98
[2024-04-03] MEDS: Amoxicillin 875/Clav. 125 TAB PO (08:13)
[2024-04-03] MEDS: Psyllium PKT 1 EACH PO (08:13)
--- NOTE | 2024-04-03 11:03 | PDOC.CMPRO ---
Date of service: 04/03/24 Time of Service: 11:03 Care Management Progress Note Discharge Potential Discharge Needs: Surgical F/U Appt and Other (obstetric) Anticipated Barriers to Discharge: None Identified Patient/Family Education Needs: Review discharge instructions, discuss Ask Me Three Transportation: Private vehicle Plan: Anticipate Nayeli will be discharged home with no new services when medically cleared. She will follow up with her PCP, surgeon and Laser Print Operator and transport home with family. CM will follow and support discharge needs. SDOH(Care Management) Screening Will the Patient Participate in the Screening?: Yes Do you worry about having a steady place to live?: no Problems where you live: no known problems In the past 12 months, have you had to go without electric, gas, oil or water in your home?: no Have you or anyone in your house had to go without enough food to eat?: no Has lack of transportation kept you from medical appointments or from doing things needed for daily living?: no Has anyone in your support network made you feel unsafe for any reason?: no
[2024-04-03 11:16] VITALS: BP 89/56; PULSE 70; RESP 18; TEMP 36.1; O2SAT 98
--- NOTE | 2024-04-03 12:33 | W.PM.DS.N ---
Date of service: 04/03/24 Time of Service: 12:34 DS: Diagnosis Discharge Diagnosis (1) Abdominal pain, right lower quadrant: Status: Acute Asessment and Plan: Discharge home with short course of Augmentin and outpatient office follow-up Discharge Plan Disposition Patient Disposition: Home Condition: Stable Discharge Details Reason For Visit: 9 wks /RLQ pain & poss appy Admit Date/Time: 04/01/24 11:40 Admit Provider: Stephanie Fernando Attending Provider: Stephanie Fernando [facility] [place] Hospital Course: Nayeli is 28 years old. She came to the emergency department with some abdominal pain associated with nausea and vomiting. She was found of a leukocytosis around 15,000. Some clinical features were consistent with acute appendicitis. She underwent an ultrasound with nonvisualization of the appendix. She was admitted to the hospital, and started on broad-spectrum antibiotics. By her first full hospital day, her white blood cell count had normalized to about 9.9. Pain completely resolved. Her diet was advanced through full liquids up to regular food, which she tolerated without any symptoms. Antibiotics were switched from intravenous to an enteral regimen of amoxicillin clavulanic acid. She was discharged home with outpatient office follow Home Meds and New Rx's Prescriptions: New amoxicillin-pot clavulanate 875-125 mg tablet 1 tab PO BID Qty: 6 0RF Rx Instructions: Take 1 tablet by mouth in the morning, and 1 tablet by mouth in the evening until the prescription is complete fluconazole [Diflucan] 100 mg tablet 150 mg PO DAILY Qty: 3 0RF Rx Instructions: Take 1-1/2 tablets by mouth for symptoms of yeast infection. [facility] Continued salicylic acid 40 % plaster 1 applic topical Q2D PRN (Reason: callus removal) Qty: 18 0RF magnesium 250 mg tablet 250 mg PO DAILY PRN PNV,calcium 90-leyh-tvydx acid 27 mg iron- 1 mg tablet 1 tab PO DAILY Qty: 90 4RF Rx Instructions: give with food (meal/snack) polyethylene glycol 3350 [Miralax] 17 gram/dose powder 17 g PO DAILY PRN (Reason: constipation) Qty: 510 4RF Discharge Instructions Additional Instructions: Nayeli, was very nice meeting you in the hospital, and I hope you make a quick recovery from this incident. I would like you to keep an eye on your temperature over the next few days. You should take your temperature once in the morning, and once in the evening, and at any point during the day if you feel feverish. If your temperature exceeds 100 degrees, please let my office know. Like we talked about before discharge, I have added a prescription for 3 more days of antibiotics, as well as a prescription for Diflucan, which was Dr. Guzman's recommendation if needed for yeast infection symptoms. I encourage you to use some type of probiotic such as lactobacillus, or live culture yogurt, kefir, or sauerkraut over the next few days as you complete the antibiotics. Hopefully, this will promote healthy GI tello which may offer some protection from symptoms associated with antibiotic use. We have scheduled a follow-up appointment at our offices across the main driveway on April 19 at 1:[address] Fernando. If any of your symptoms come back in the meantime, please do not hesitate to call the office and let us know, we can always adjust the appointments if needed. If you have any questions or concerns at any point at all, please do not hesitate to ask. Referrals: Stephanie Fernando, [OSTEOPATHIC DOCTOR] - (April 19 at 1:30 PM) Activity:: Activity as Tolerated Equipment/Supplies:: No Equipment Needed Diet:: As Tolerated DS: Summary Time Spent with Patient providing and/or coordinating discharge services: Greater than 30 minutes Status at Discharge Functional status at discharge: independent ambulation Overall status at discharge: patient is back to baseline Mental Status: mental status grossly normal Speech and Movement: speech and movement normal Mood: congruent mood Affect: normal affect Quality:SDOH Health Related Social Needs: No Data to Display Exam GI Other: Abdomen is soft, nontender nondistended. Psych Mental Status: mental status grossly normal Speech and Movement: speech and movement normal Mood: congruent mood Affect: normal affect DS: Data Vitals/I&O Vitals and I&O: Vital Signs Temperature 97.0 F L 04/03/24 11:16 Temperature Source Tympanic 04/03/24 11:16 Pulse 70 04/03/24 11:16 Respiratory Rate 18 04/03/24 11:16 Respiratory Effort Normal, Non-Labored 04/01/24 14:10 Respiratory Depth Normal 04/01/24 14:10 Respiratory Pattern Normal 04/01/24 14:10 Blood Pressure 89/56 L 04/03/24 11:16 Blood Pressure Mean 77 04/01/24 12:30 Blood Pressure Position Supine 04/01/24 06:05 Pulse Oximetry 98 04/03/24 11:16 Oxygen Delivery Method Room Air 04/03/24 11:16 Oxygen Flow Rate 0 04/03/24 11:16 Pain Level 0 04/03/24 07:27 Comment RN notified. 04/03/24 07:27 Intake & Output 04/02/24 04/03/24 04/03/24 23:59 11:59 23:59 Intake Total 1290 / 2180 Balance 1290 / 2180 Intake: IV 1050 / 1940 Oral 240 / 240 Other: Urine Color Yellow Yellow Urine Appearance Clear Clear Urine Odor None Comment no hat, unsure amount or color. Patient states urine was clear and yellow Data Completed and Pending Labs on day of discharge: Labs from last 24 hours 04/03/24 05:50 WBC 8.32 RBC 3.69 L Hgb 11.5 Hct 34.1 L MCV 92 MCH 31.2 MCHC 33.7 RDW 12.9 Plt Count MPV PFSH All Active Problems (Updated 04/01/24 @ 12:58 by Stephanie Fernando DO) Leukocytosis (leucocytosis) (Acute) Abdominal pain during intrauterine (Acute) Abdominal pain, right lower quadrant (Acute) Medical History Irritable bowel syndrome with constipation ADHD (attention deficit hyperactivity disorder) Major depressive disorder Surgical History No pertinent past surgical history Family History Mother , 37 from suicide Depression Father Asthma Brother No problems noted. Brother Asthma Sister No problems noted. Daughter No problems noted. Maternal Grandfather No problems noted. Maternal Grandmother Breast cancer x 3 Paternal Grandfather No problems noted. Paternal Grandmother No problems noted. Social History Smoking/Tobacco Use Status: Current-Occasional Tobacco: How many years used: 2 Second Hand Exposure: Yes Smoking risk assessment performed?: Yes Alcohol Intake: current Alcohol Intake frequency: a few times a week Alcohol type: wine Drug use: Never Substance use type: does not use Counseling provided: none Caregiver/Support person: No Household members: friend(s) Housing: house Communication Needs: Corrective Lenses Do you need help understanding health information?: Never Pets and animals: Yes Pets and animals: dog(s) Sexually active: Yes Do you think of yourself as: straight/heterosexual Current gender identity: female What is your relationship status?: never How often do you talk on the phone with friends or family?: once per week Do you belong to any clubs or organized social groups?: no Panel score (0-1 are the most socially isolated patients): 0 What type of physical activity do you participate in: walking Duration: > 90 minutes/day Frequency: 3-4 times per week Chantal/Mu-Ism: None Special chantal needs: No Seatbelt use: always Helmet use: Yes Helmet use: always Drive intox or ride w/intox route sales driver: No Do you feel safe at home: Yes Do you feel safe in your relationship?: Yes Female Reproductive History Menstrual control method: none History History 3 Para 1 Hx # Term Pregnancies 1 Multiple births 0 Hx # Pregnancies 0 Ectopic pregnancies 0 AB induced 1 Hx Number of Living Children 1 AB spontaneous 0 Past Pregnancies Del. Date GA/Weeks # Preg Succ Route Wgt Sex Labor Lgth Anesthesia Location [facility] 02/27/21 10 No 08/18/22 41 No Yes vaginal 7 lb 14.98 oz Female 24hrs 9min [facility] [place] Delivery Date: 02/27/21 Last Updated by: Marbella Musa Elective Ab Delivery Date: 08/18/22 Last Updated by: HARLAN Reyes Time Spent with Patient Time Spent with Patient: <45 minutes Time was spent: preparing to see the patient(eg.review tests), ordering medications,tests, procedures, referring, communicating with other health memory care director, indepentently interpreting results, counseling the patient and care coordination
--- NOTE | 2024-04-03 15:16 | CMDISCH_ITS ---
Date of service: 04/03/24 Time of Service: 15:16 LACE Index Scoring Tool Questions: Length of Stay (in days): 2 Was the patient admitted via the E.D.?: Yes E.D. Visits: 2 Answers: Total Score: 7 Risk of Readmission: Low Risk Care Management Discharge Plan Reason for Hospitalization: abdominal pain Discharge Plan: Nayeli will be discharged home with no new services. She will follow up with her community providers and plan of care and transport with carole cabrera. Patient/Family Education Needs: review of discharge instructions, limitations, follow up plan, discuss [facility] Me [facility] Health Related Social Needs: No Data to Display
== END 2024-04-03 13:36 | disposition home or self-care (01) | DRG 832 ==
LOC: ER 12:43 → MS 13:09
PROVIDERS: Emergency Medicine; Surgery; Admitting Provider Surgery; Emergency Provider Student in an Organized Health Care Education/Training Program; PCP Nurse Practitioner Family; Visit Provider Surgery
DX: O99.611 Diseases of the digestive system complicating pregnancy, first trimester (principal); K35.80 Unspecified acute appendicitis; F90.0 Attention-deficit hyperactivity disorder, predominantly inattentive type; K58.1 Irritable bowel syndrome with constipation; D72.829 Elevated white blood cell count, unspecified; Z3A.09 9 weeks gestation of pregnancy; O99.341 Other mental disorders complicating pregnancy, first trimester; O99.331 Smoking (tobacco) complicating pregnancy, first trimester; F17.210 Nicotine dependence, cigarettes, uncomplicated; F32.9 Major depressive disorder, single episode, unspecified
CPT/HCPCS: 00123; 36415; 80048; 80053; 83690; 84145; 85027; 96361; 96365; 96367; 96375; 96376; 99285; 76705; 81003; 81015; 83735; 85025; 86140; 93005; 93010; J0131; J0696; J1644; J2270; J2543; J2765; J3475

== ENCOUNTER 2024-04-16 03:08 | Outpatient (CLI) | payer MEDICAID, SELFPAY ==
[2024-04-16 10:30] LABS: Panorama Kit Sent via Fed Ex
[2024-04-16 10:52] LABS: Abs Immature Grans 0.07 10^3/uL (0.0-0.06); Absolute Basophil Count 0.03 10^3/uL (0.0-0.2); Absolute Eosinophil Count 0.05 10^3/uL (0.0-0.7); Absolute Lymphocyte Count 1.43 10^3/uL (1.2-3.4); Absolute Monocyte Count 0.49 10^3/uL (0.1-0.8); Basophils % 0.4 %; Eosinophils % 0.7 %; HCT 37.9 % (36.0-46.0); Immature Grans % 0.9 %; Lymphocytes % 18.9 %; MCH 31.3 pg (27.0-33.0); MCHC 34.3 % (32.0-36.0); MCV 91 fL (80-95); Monocytes % 6.5 %; Neutrophils % 72.6 %; RBC 4.16 10^6/uL (3.93-5.22); RDW 12.6 % (11.7-14.6); RDW-SD 41.8 fL; WBC 7.57 10^3/uL (4.4-10.8)
[2024-04-16 10:59] LABS: Platelet Count 99 10^3/uL (130-400)
[2024-04-16 11:00] LABS: Diff Comment Diff Reviewed; RBC Morphology Normal
[2024-04-16 20:26] LABS: Hepatitis B Surface Ag Negative (Negative)
[2024-04-16 21:14] LABS: HIV-1/2 Ag & Ab Screen Negative (Negative)
[2024-04-16 21:35] LABS: Hepatitis C Ab w Rflx HCV PCR Negative (Negative)
[2024-04-17 11:09] LABS: Rubella IgG Ab (UVM) Positive (See Note); Varicella IgG Antibody Positive (See Note)
[2024-04-17 20:42] LABS: Syphilis IgG w/Reflex Nonreactive (Nonreactive)
== END 2024-04-16 03:09 | disposition home or self-care (01) ==
LOC: LBO 03:08
PROVIDERS: PCP Nurse Practitioner Family; Visit Provider Advanced Practice Midwife
DX: Z34.91 Encounter for supervision of normal pregnancy, unspecified, first trimester (principal)
CPT/HCPCS: 36415; 86787; 86803; 86850; 86900; 86901; 87340; 87389; 85025; 86762; 86780

== ENCOUNTER 2024-04-16 11:21 | Outpatient (REF) | payer MEDICAID, SELFPAY ==
--- NOTE | 2024-04-16 10:00 | PAPFT_PTH ---
PATIENT: Nayeli Sam LOC: [facility] U#:[id number] AGE/SX: 28/F ROOM: RE04/16/[address]: Phylicia Contreras : 1995 BED: DIS: 04/16/2024 SPEC #: [id number] RECD: 04/16/24 13:10 STATUS: CYNDEE REYasmin #: [id number] JACOB: 04/16/24 10:[address]: Phylicia Contreras DEPT: [facility] Cytology RECD BY: Priya Mayo ENTERED: 04/16/24 13:10 SP TYPE: PAPFT OTHR DR: YANIRA Rogers Tissues: 1 - CX/ENDOCX FOR PAP SMEARS Procedures: PAP THIN PREP/[facility] Screening Comments: [id number] (CHLAMYDIA/GC)
[2024-04-16 12:51] LABS: *AMPHETAMINES SCREEN URINE Negative (Negative); *BARBITURATES SCREEN URINE Negative (Negative); *BENZODIAZEPINES SCREEN URINE Negative (Negative); Cannabinoids THC Negative (Negative); Cocaine Screen,Urine Negative (Negative); METHADONE URINE SCREEN Negative (Negative); OPIATES URINE SCREEN Negative (Negative); Tricyclic Antidepressants Negative (Negative)
[2024-04-17 12:18] LABS: Chlamydia Result Negative (Negative); GC Result Negative (Negative)
[2024-04-17 14:44] LABS: Fentanyl Scr w/Rfx Confirm Negative ng/mL (<1)
[2024-04-20 08:09] LABS: Buprenorphine Negative ng/mL (Cutoff: 5.0); Norbuprenorphine Negative ng/mL (Cutoff: 2.5)
== END 2024-04-16 11:22 | disposition home or self-care (01) ==
LOC: LBN 11:21
PROVIDERS: PCP Nurse Practitioner Family; Visit Provider Advanced Practice Midwife
DX: Z34.91 Encounter for supervision of normal pregnancy, unspecified, first trimester (principal); Z3A.11 11 weeks gestation of pregnancy
CPT/HCPCS: 80307; 80348; 87491; 87591; 88142; 87086; 87480; 87510; 87660

== ENCOUNTER 2024-06-12 03:51 | Outpatient (CLI) | payer MEDICAID, SELFPAY ==
[2024-06-12 09:43] LABS: HCT 33.7 % (36.0-46.0); HGB 11.3 g/dL (11.2-15.7); MCHC 33.5 % (32.0-36.0); MCV 93 fL (80-95); RBC 3.64 10^6/uL (3.93-5.22); RDW 13.8 % (11.7-14.6); RDW-SD 46.8 fL; WBC 8.91 10^3/uL (4.4-10.8)
== END 2024-06-12 03:52 | disposition home or self-care (01) ==
LOC: LBO 03:51
PROVIDERS: Advanced Practice Midwife; PCP Nurse Practitioner Family; Visit Provider Advanced Practice Midwife
DX: Z34.92 Encounter for supervision of normal pregnancy, unspecified, second trimester (principal)
CPT/HCPCS: 36415; 85027

== ENCOUNTER 2024-06-27 04:11 | Outpatient (CLI) | payer MEDICAID, SELFPAY ==
[2024-07-05 14:28] LABS: Misc Referral (UVM) See Comments
== END 2024-06-27 04:12 | disposition home or self-care (01) ==
LOC: LBO 04:11
PROVIDERS: PCP Nurse Practitioner Family; Visit Provider Advanced Practice Midwife
DX: D69.1 Qualitative platelet defects (principal)
CPT/HCPCS: 36415; 85027

== ENCOUNTER 2024-08-14 01:40 | Outpatient (CLI) | payer MEDICAID, SELFPAY ==
[2024-08-14 10:35] LABS: HCT 34.6 % (36.0-46.0); HGB 11.6 g/dL (11.2-15.7); MCH 31.9 pg (27.0-33.0); MCHC 33.5 % (32.0-36.0); MCV 95 fL (80-95); RBC 3.64 10^6/uL (3.93-5.22); RDW 14.2 % (11.7-14.6); RDW-SD 49.2 fL
[2024-08-14 11:19] LABS: Glucose,1 Hr (Glucola) 122 mg/dL (80-140)
[2024-08-15 12:16] LABS: HCT 34.9 % (34.9-44.4); Hemoglobin 11.6 g/dL (11.6-15.2); MCH 31.7 pg (26.7-33.3); MCHC 33.2 g/dL (32.1-35.9); MCV 95 fL (81-98); RBC 3.66 M/cmm (3.86-5.04); RDW-CV 14.3 % (<14.7); WBC 9.39 K/cmm (4.00-12.40)
[2024-08-15 12:17] LABS: RDW-SD 50.1 fl (<50.4)
[2024-08-15 12:18] LABS: Platelet Count Citrate 250 K/cmm (141-377)
== END 2024-08-14 01:41 | disposition home or self-care (01) ==
LOC: LBO 01:40
PROVIDERS: Advanced Practice Midwife; PCP Nurse Practitioner Family; Visit Provider Advanced Practice Midwife
DX: Z34.92 Encounter for supervision of normal pregnancy, unspecified, second trimester (principal)
CPT/HCPCS: 36415; 82950; 85027; 85049

== ENCOUNTER 2024-08-14 10:20 | Outpatient (REF) | payer MEDICAID, SELFPAY ==
[2024-08-14 11:44] LABS: *AMPHETAMINES SCREEN URINE Negative (Negative); *BARBITURATES SCREEN URINE Negative (Negative); *BENZODIAZEPINES SCREEN URINE Negative (Negative); Cannabinoids THC Negative (Negative); Cocaine Screen,Urine Negative (Negative); METHADONE URINE SCREEN Negative (Negative); OPIATES URINE SCREEN Negative (Negative)
[2024-08-14 11:47] LABS: Tricyclic Antidepressants Negative (Negative)
[2024-08-15 11:40] LABS: Fentanyl Scr w/Rfx Confirm Negative ng/mL (<1)
[2024-08-21 12:56] LABS: Buprenorphine Negative ng/mL (Cutoff: 5.0); Norbuprenorphine Negative ng/mL (Cutoff: 2.5)
== END 2024-08-14 10:21 | disposition home or self-care (01) ==
LOC: LBN 10:20
PROVIDERS: PCP Nurse Practitioner Family; Visit Provider Advanced Practice Midwife
DX: Z34.92 Encounter for supervision of normal pregnancy, unspecified, second trimester (principal)
CPT/HCPCS: 80307; 80348

== ENCOUNTER 2024-09-11 01:56 | Outpatient (CLI) | payer MEDICAID, SELFPAY ==
--- NOTE | 2024-09-11 07:00 | DI.US_ITS ---
Exam(s) US OB MICHAEL WEIGHT EXAM: US OB MICHAEL WEIGHT CLINICAL HISTORY: growth and MICHAEL, screening for cystic fibrosis,z14.1. TECHNIQUE: Transabdominal obstetrical ultrasound performed. COMPARISON: US US OB 1ST TRIMESTER from 02/27/2024 FINDINGS:: Number of fetuses: 1 position: CEPHALIC, spine anterior Placental location: FUNDAL No evidence of previa. BIOMETRIC DATA: BPD: 8.18cm, 32weeks 6days HC: 29.91cm, 33weeks 1day AC: 27.95cm, 32weeks FL: 6.16cm, 32weeks EFW: 1,917.9g, 4lb 4.26oz, 35.6% Composite Age: 32weeks 4days VENECIA: 11/02/2024 Heart Rate: 131bpm Amniotic fluid index: 13.85cm. Visually, amount of fluid is within normal limits. No abnormality is identified involving the lungs. IMPRESSION: size and weight are within the expected range. DATA REPOSITORY:
== END 2024-09-11 02:16 ==
LOC: DI 01:56
PROVIDERS: PCP Nurse Practitioner Family; Visit Provider Advanced Practice Midwife
DX: Z14.1 Cystic fibrosis carrier (principal); Z34.83 Encounter for supervision of other normal pregnancy, third trimester; Z3A.32 32 weeks gestation of pregnancy
CPT/HCPCS: 76816